=== PATIENT | female | born 1940 | race Caucasian/White ===

== ENCOUNTER 2021-12-18 11:22 | Outpatient (CLI) | payer MEDICARE, OTHER | END 2021-12-18 23:59 | disposition critical access hospital (66) | LOC: EMS 11:22 | DX: R11.2 Nausea with vomiting, unspecified (principal); R19.7 Diarrhea, unspecified; R53.1 Weakness | CPT/HCPCS: A0425; A0427 ==

== ENCOUNTER 2021-12-18 11:47 | Inpatient (IN) | payer MEDICARE, OTHER ==
--- NOTE | 2021-12-18 12:33 | ED Physician Documentation ---
History of Present Illness - Stated complaint Stated Complaint: N/V - Chief complaint Chief Complaint: Abd Pain - History obtained from History obtained from: Patient - History of Present Illness Timing: Today Pain level max: 4 Pain level now: 3 - Additonal information Additional information: 81 year old female who presents to the emergency department complaining of intermittent nausea, vomiting and diarrhea over the past 8 days. She states that the nausea has been fairly consistent, but the vomiting has come and gone. The diarrhea comes and goes as well. No headaches. Occasional epigastric abdominal pain. No blood in the stool. Has tried Reglan which seemed to help and then was on Zofran. She states she has not had any fevers but was told she had a fever today. No urinary symptoms. Worse with eating and drinking, nothing makes it better. She states she spoke with her doctor on the Internet today and they referred her here for evaluation. Review of Systems Ten Systems: 10 systems reviewed and negative Constitutional: denies: Fever, Chills Cardiac: denies: Chest pain / pressure Respiratory: denies: Cough GI: reports: Nausea, Vomiting, Diarrhea Skin: denies: Rash Musculoskeletal: denies: Neck pain, Back pain Neurologic: denies: Headache PD PAST MEDICAL HISTORY - Past Medical History Past Medical History: Yes Cardiovascular: Hypertension, High cholesterol, Coronary artery disease Neuro: CVA - Present Medications Home Medications: Ambulatory Orders Medication Instructions Recorded Confirmed ALPRAZolam [Xanax] 1 - 3 tab PO DAILY PRN 06/08/14 06/08/14 Carvedilol 1 tab PO DAILY 06/08/14 06/08/14 Furosemide [Lasix] 1 tab PO DAILY 06/08/14 06/08/14 Gabapentin 3 cap PO DAILY 06/08/14 06/08/14 Hydrocodone/Acetaminophen [Vicodin 2 tab PO Q6HR PRN 06/08/14 06/08/14 5-300 mg Tablet] Lovastatin 1 tab PO DAILY 06/08/14 06/08/14 Omeprazole [Prilosec] 2 cap PO DAILY 06/08/14 06/08/14 Potassium Chloride [Klor-Con] 1 packet PO DAILY 06/08/14 06/08/14 Warfarin [Coumadin] 1 tab PO DAILY 06/08/14 06/08/14 predniSONE [Prednisone] 1 tab PO DAILY 06/08/14 06/08/14 raNITIdine [Zantac] 1 tab PO DAILY 06/08/14 06/08/14 traMADol [Ultram] 1 - 2 tab PO TID PRN 06/08/14 06/08/14 Metoclopramide [Reglan] 10 mg PO Q6H PRN #20 tablet 12/05/21 - Allergies Allergies/Adverse Reactions: Allergies Allergy/AdvReac Type Severity Reaction Status Date / Time BETY Inhibitors Allergy Respiratory Verified 12/18/21 13:12 levofloxacin [From Levaquin] Allergy Rash Verified 12/18/21 13:12 Sulfa (Sulfonamide Allergy Hives Verified 12/18/21 13:12 Antibiotics) - Living Situation Living Situation: reports: With family Living Arrangement: reports: At home - Social History Does the pt smoke?: No Does the pt drink ETOH?: No Does the pt have substance abuse?: No - Family History Family history: reports: Non contributory PD ED PE NORMAL - Vitals Vital signs reviewed: Yes - General General: Alert and oriented X 3, No acute distress, Well developed/nourished - HEENT HEENT: PERRL, Moist mucous membranes - Neck Neck: Supple, no meningeal sign - Cardiac Cardiac: RRR - Respiratory Respiratory: No respiratory distress, Clear bilaterally - Abdomen Abdomen: Soft, Non tender, Non distended - Back Back: Other (mild B CVAT) - Derm Derm: Warm and dry - Extremities Extremities: No edema, No calf tenderness / cord - Neuro Neuro: Alert and oriented X 3 - Psych Psych: Normal mood, Normal affect Results - Vitals Vitals: Vital Signs - 24 hr 12/18/21 12/18/21 12/18/21 11:53 14:00 15:40 Temperature 37.9 C Heart Rate 73 79 84 Respiratory 18 19 26 H Rate Blood Pressure 112/100 H 153/103 H 162/79 H O2 Saturation 96 98 95 Oxygen O2 Source Room air - Labs Labs: Laboratory Tests 12/18/21 12/18/21 12/18/21 12:26 12:32 12:32 WBC 16.9 H RBC 4.28 Hgb 12.6 Hct 38.6 MCV 90.2 MCH 29.4 MCHC 32.6 RDW 14.7 Plt Count 269 MPV 11.4 H Neut # (Auto) Not Reportable Lymph # (Auto) Not Reportable Door # (Auto) Not Reportable Eos # (Auto) Not Reportable Baso # (Auto) Not Reportable Absolute Nucleated RBC Not Reportable Total Counted 100 Band Neuts % (Manual) 8 Abnorm Lymph % (Manual) 0 Nucleated RBC % Not Reportable Neutrophils # (Manual) 13.4 H Lymphocytes # (Manual) 1.5 Monocytes # (Manual) 2.0 H Eosinophils # (Manual) 0.0 Basophils # (Manual) 0.0 Differential Comment MANUAL DIFFERENTIAL RBC Morph Micro Appear 1+ HYPOCHROMASIA Sodium 136 Potassium 2.4 L* Chloride 103 Carbon Dioxide 22 Anion Gap 11.0 BUN 8 Creatinine 1.2 H Estimated GFR (MDRD) 43 L Glucose 127 H Estimat Average Glucose Hemoglobin A1c % Calcium 8.3 L Phosphorus 2.6 Magnesium 0.8 L* Total Bilirubin 0.7 AST 18 ALT 11 Alkaline Phosphatase 64 Total Protein 6.1 L Albumin 2.8 L Globulin 3.3 Albumin/Globulin Ratio 0.8 L Lipase 29 Urine Color Urine Clarity Urine pH Ur Specific [place] Urine Protein Urine Glucose (UA) Urine Ketones Urine Occult Blood Urine Nitrite Urine Bilirubin Urine Urobilinogen Ur Leukocyte Esterase Urine RBC Urine WBC Ur Squamous Epith Cells Urine Bacteria Ur Microscopic Review Urine Culture Comments Nasal Adenovirus (PCR) Nasal B. parapertussis DNA (PCR) Nasal Coronavir 229E PCR Nasal Coronavir HKU1 PCR Nasal Coronavir NL63 PCR Nasal Coronavir OC43 PCR Nasal Enterovir/Rhinovir PCR Nasal Influenza B PCR Nasal Influenza A PCR Nasal Parainfluen 1 PCR Nasal Parainfluen 2 PCR Nasal Parainfluen 3 PCR Nasal Parainfluen 4 PCR Nasal RSV (PCR) Nasal B.pertussis DNA PCR Nasal C.pneumoniae (PCR) Douglas Human Metapneumo PCR Nasal M.pneumoniae (PCR) Nasal SARS-CoV-2 (PCR) 12/18/21 12/18/21 12/18/21 12:32 13:24 16:44 WBC RBC Hgb Hct MCV MCH MCHC RDW Plt Count MPV Neut # (Auto) Lymph # (Auto) Door # (Auto) Eos # (Auto) Baso # (Auto) Absolute Nucleated RBC Total Counted Band Neuts % (Manual) Abnorm Lymph % (Manual) Nucleated RBC % Neutrophils # (Manual) Lymphocytes # (Manual) Monocytes # (Manual) Eosinophils # (Manual) Basophils # (Manual) Differential Comment RBC Morph Micro Appear Sodium Potassium Chloride Carbon Dioxide Anion Gap BUN Creatinine Estimated GFR (MDRD) Glucose Estimat Average Glucose 134 H Hemoglobin A1c % 6.3 H Calcium Phosphorus Magnesium Total Bilirubin AST ALT Alkaline Phosphatase Total Protein Albumin Globulin Albumin/Globulin Ratio Lipase Urine Color YELLOW Urine Clarity SL. CLOUDY Urine pH 6.0 Ur Specific [place] 1.025 Urine Protein TRACE Urine Glucose (UA) NEGATIVE Urine Ketones NEGATIVE Urine Occult Blood MODERATE H Urine Nitrite POSITIVE H Urine Bilirubin NEGATIVE Urine Urobilinogen 0.2 (NORMAL) Ur Leukocyte Esterase NEGATIVE Urine RBC 11-25 H Urine WBC 6-10 H Ur Squamous Epith Cells FEW Squamous Urine Bacteria Moderate H Ur Microscopic Review INDICATED Urine Culture Comments INDICATED Nasal Adenovirus (PCR) NOT DETECTED Nasal B. parapertussis DNA (PCR) NOT DETECTED Nasal Coronavir 229E PCR NOT DETECTED Nasal Coronavir HKU1 PCR NOT DETECTED Nasal Coronavir NL63 PCR NOT DETECTED Nasal Coronavir OC43 PCR NOT DETECTED Nasal Enterovir/Rhinovir PCR NOT DETECTED Nasal Influenza B PCR NOT DETECTED Nasal Influenza A PCR NOT DETECTED Nasal Parainfluen 1 PCR NOT DETECTED Nasal Parainfluen 2 PCR NOT DETECTED Nasal Parainfluen 3 PCR NOT DETECTED Nasal Parainfluen 4 PCR NOT DETECTED Nasal RSV (PCR) NOT DETECTED Nasal B.pertussis DNA PCR NOT DETECTED Nasal C.pneumoniae (PCR) NOT DETECTED Douglas Human Metapneumo PCR NOT DETECTED Nasal M.pneumoniae (PCR) NOT DETECTED Nasal SARS-CoV-2 (PCR) NOT DETECTED - Rads (name of study) head CT Radiology: Final report received, EMP read contemporaneously, See rad report (No acute intracranial disease process. ) CT abd/pelvis Radiology: Final report received, EMP read contemporaneously, See rad report PD MEDICAL DECISION MAKING - ED course Complexity details: reviewed results, re-evaluated patient, considered differential, d/w patient, d/w senior solutions workflow consultant ED course: 81-year-old female with what appears to be pyelonephritis. Patient has had continued vomiting. 2 doses of Zofran with EMS prior to arrival. Phenergan here and is still having episodes of emesis. Given Rocephin. Given IV fluids. Appears dehydrated. Has hypokalemia and hypomagnesemia. Both were replaced IV. Unable to tolerate oral potassium. Patient will be admitted for further care. Discussed the case with Dr. Toth, hospitalist who accepts This document was made in part using voice recognition software. While efforts are made to proofread this document, sound alike and grammatical errors may occur. IMPRESSION: 1. Small focal areas of heterogeneous enhancement in the superior poles of the kidneys bilaterally.Finding is nonspecific but is concerning for pyelonephritis. Recommend correlation with urinalysis data. 2. No dilated loops of bowel. 3. No free fluid or air. 4. Small hiatal hernia. 5. Atherosclerosis including the visualized coronary vasculature. 6. Mild hepatic steatosis. Departure - Departure Disposition: 66 [facility] DC/Xfer Clinical Impression: Pyelonephritis, Hypokalemia, Hypomagnesemia, Dehydration Condition: Stable Discharge Date/Time: 12/18/21 18:04
[2021-12-18] MEDS ORDERED: SODIUM CHLORIDE 0.9% 500 ML IV STA (12:36)
[2021-12-18 12:41] LABS: BASOPHILS % (AUTO) 0.4 %; EOSINOPHILS % (AUTO) 0.1 %; HCT - HEMATOCRIT 38.6 % (37.0-47.0); HGB - HEMOGLOBIN 12.6 g/dL (12.0-16.0); LYMPHOCYTES % (AUTO) 6.6 %; MEAN CORPUSCULAR HEMOGLOBIN 29.4 pg (27.0-31.0); MEAN CORPUSCULAR HGB CONC 32.6 g/dL (32.0-36.0); MEAN CORPUSCULAR VOLUME 90.2 fL (81.0-99.0); MEAN PLATELET VOLUME 11.4 fL (7.9-10.8); MONOCYTES % (AUTO) 11.6 %; NEUTROPHILS % (AUTO) 80.8 %; PLT - PLATELET COUNT 269 10^3/uL (130-450); RED BLOOD COUNT 4.28 10^6/uL (4.20-5.40); RED CELL DISTRIBUTION WIDTH 14.7 % (12.0-15.0); WHITE BLOOD COUNT 16.9 x10^3/uL (4.8-10.8)
[2021-12-18 12:43] LABS: ABNORMAL LYMPHS % (MANUAL) 0 %
[2021-12-18] MEDS ORDERED: IOVERSOL 320 100 ML VIAL IVP ONE ×2 (12:51→15:33)
[2021-12-18 12:55] LABS: ALBUMIN 2.8 g/dL (3.2-5.5); ALBUMIN/GLOBULIN RATIO 0.8 (1.0-2.2); BILIRUBIN,TOTAL 0.7 mg/dL (0.2-1.0); CALCIUM 8.3 mg/dL (8.5-10.3); CREATININE 1.2 mg/dL (0.4-1.0); TOTAL PROTEIN 6.1 g/dL (6.7-8.2)
[2021-12-18 12:56] LABS: POTASSIUM 2.4 mmol/L (3.5-5.0)
[2021-12-18] MEDS: SODIUM CHLORIDE 0.9% 1,000 ML IV STA ×2 (13:02→18:57)
[2021-12-18 13:03] LABS: BAND NEUTROPHILS % (MANUAL) 8 %; LYMPHOCYTES # (MANUAL) 1.5 10^3/uL (1.5-3.5); LYMPHOCYTES % (MANUAL) 9 %; NEUTROPHILS # (MANUAL) 13.4 10^3/uL (1.5-6.6)
[2021-12-18 13:05] LABS: DIFFERENTIAL COMMENT MANUAL DIFFERENTIAL; RBC MORPHOLOGY (MULTIPLE) 1+ HYPOCHROMASIA (NORMAL)
[2021-12-18] MEDS ORDERED: POTASSIUM CHLORIDE 20 MEQ TABLET PO STA (13:16)
[2021-12-18] MEDS ORDERED: PROMETHAZINE INJ 12.5 MG in SODIUM CHLORIDE 0.9% 50 ML IV STA (13:35)
[2021-12-18 13:39] LABS: PHOSPHORUS 2.6 mg/dL (2.5-4.6)
[2021-12-18 13:41] LABS: MAGNESIUM 0.8 mg/dL (1.7-2.8)
[2021-12-18 13:44] LABS: BILIRUBIN,URINE NEGATIVE (NEGATIVE); GLUCOSE, URINE (UA) NEGATIVE (NEGATIVE); KETONES,URINE (UA) NEGATIVE (NEGATIVE); LEUKOCYTE ESTERASE, URINE NEGATIVE (NEGATIVE); NITRITE,URINE POSITIVE (NEGATIVE); OCCULT BLOOD,URINE MODERATE (NEGATIVE); PROTEIN,URINE TRACE mg/dL (NEGATIVE); UROBILINOGEN,URINE 0.2 (NORMAL) E.U./dL (NORMAL)
[2021-12-18 14:01] LABS: BACTERIA,URINE Moderate /HPF (None Seen); CLARITY,URINE SL. CLOUDY (CLEAR); SQUAMOUS EPITHELIAL CELL,UR FEW Squamous (<= Few)
[2021-12-18] MEDS ORDERED: MAGNESIUM SULFATE 2 GRAM 2 GM/50 ML BAG IV ONE (14:12)
--- NOTE | 2021-12-18 15:53 | CT Report ---
PROCEDURE: HEAD WO INDICATIONS: persistent nausea/vomiting after stroke TECHNIQUE: Noncontrast 4.5 mm thick angled axial sections acquired from the foramen magnum to the vertex. For r adiation dose reduction, the following was used: automated exposure control, adjustment of mA and/or kV according to patient size. COMPARISON: None FINDINGS: Image quality: Excellent. CSF spaces: Basal cisterns are patent. No extra-axial fluid collections. The ventricles are symmet mirian in size and shape. Brain: Small chronic right frontal infarct. No intracranial bleeds or masses. There is cerebral vol ume loss for age, with resultant ventricular and sulcal prominence. There are periventricular and de ep white matter chronic small vessel ischemic changes. There is intracranial internal carotid artery and vertebral artery atherosclerosis. Skull and face: Calvarium and visualized facial bones appear intact, without suspicious lesions. Sinuses: Visualized sinuses and mastoids are clear. IMPRESSION: No acute intracranial disease process. Reviewed by: Amarilis Hall MD, PhD on 12/18/2021 3:52 PM PST Approved by: Amarilis Hall MD, PhD on 12/18/2021 3:52 PM PST Station ID: [id number]
[2021-12-18] MEDS ORDERED: POTASSIUM CHLOR 10 MEQ/100 ML 10 MEQ/100 ML BAG IV STA (15:59)
[2021-12-18] MEDS ORDERED: cefTRIAXone 1 GM VIAL IVP STA (16:05)
--- NOTE | 2021-12-18 16:11 | CT Report ---
PROCEDURE: Abdomen/Pelvis W INDICATIONS: diffuse abd pain, vomiting CONTRAST: IV CONTRAST: Optiray 320 ml: 100 PO CONTRAST: *NO PO CONTRAST TECHNIQUE: After the administration of contrast, 5 mm thick sections acquired from the diaphragms to the sym physis. 5 mm thick coronal and sagittal reformats were acquired. For radiation dose reduction, the following was used: automated exposure control, adjustment of mA and/or kV according to patient size . COMPARISON: None. FINDINGS: Image quality: Excellent. ABDOMEN: Lung bases: Scattered interstitial thickening noted in the periphery of the lung bases bilaterally. B ibasilar bronchiectasis. Heart size is normal. Atherosclerotic calcifications noted in the visualized coronary vasculature. Solid organs: Liver and spleen are normal in size and enhancement. Mild, diffuse fatty infiltration of the liver. Gallbladder is partially contracted, but within normal limits. Biliary system is non d ilated. Pancreas enhances normally. No adrenal nodules. No renal stone or hydronephrosis. Small, levy btle areas of heterogeneous enhancement noted in the superior poles of the kidneys bilaterally, right greater than left. Finding is nonspecific but may be related to pyelonephritis. Peritoneum and bowel : Small hiatal hernia. Bowel loops demonstrate normal wall thickness and caliber. No free fluid or air. Appendix is not visualized and may be absent. No free fluid or inflammatory changes are noted ad jacent to the cecum. Nodes and vessels: No retroperitoneal or mesenteric adenopathy by size criteria. Aorta and inferior vena cava are normal in size. Scattered atherosclerotic calcifications are noted in the abdominal an d pelvic vasculature. Miscellaneous: No ventral hernias. PELVIS: Genitourinary: Bladder wall thickness is normal. Adnexa are absent. Miscellaneous: No inguinal hernias or adenopathy. Bones: No suspicious bony lesions. No vertebral body compression fractures. Spine degenerative disc disease and facet arthropathy are noted. IMPRESSION: 1. Small focal areas of heterogeneous enhancement in the superior poles of the kidneys bilaterally. F inding is nonspecific but is concerning for pyelonephritis. Recommend correlation with urinalysis johanna a. 2. No dilated loops of bowel. 3. No free fluid or air. 4. Small hiatal hernia. 5. Atherosclerosis including the visualized coronary vasculature. 6. Mild hepatic steatosis. Reviewed by: Amarilis Hall MD, PhD on 12/18/2021 4:10 PM PST Approved by: Amarilis Hall MD, PhD on 12/18/2021 4:10 PM [facility] Station ID: [id number]
[2021-12-18] MEDS ORDERED: ONDANSETRON 4 MG/2 ML VIAL IVP PRN (17:00)
[2021-12-18] MEDS ORDERED: D5.45NS W/20 MEQ KCL 1,000 ML IV SCH ×3 (17:00→18:22)
--- NOTE | 2021-12-18 17:13 | HISTORY & PHYSICAL EXAMINATION ---
Chief Complaint - Chief Complaint Chief Complaint: N/V/D History of Present Illness - Admitted From Admitted From:: Medical floor - History Obtained From Records Reviewed: [facility], ER notes History obtained from: pt Exam Limitations: no - History of Present Illness HPI Comment/Other: This is a 81-year old female with A past medical history significant for hypertension, hyperlipidemia, stroke with residual left-sided weakness who presents to the emergency department complaining of intermittent nausea, vomiting and diarrhea. pt report she had intermittent nausea, vomiting and diarrhea over the past 8 days. pt report she visited her PCP and she was prescribed Zofran. she state her nausea and vomiting was improved after she took Zofran but early today morning, she started again with nausea and vomiting. She states that the nausea has been consistent, but her vomiting and diarrhea has been intermittent. She report she spoke with her PCP again on the Internet today and they referred her to ER for evaluation. Patient denies fever, chill, chest pain, shortness of breath. In ER pt had temperature 37.9, HR 73, RR 18, BP112/110, 96% O2 sat on room air. Routine laboratory test significantly show potassium 2.4, magnesium 0.8, creatinine 1.2, WBC 17, positive UTI. CT of abdomen/pelvis show Small focal area of heterogenic enhancement at bilaterally kidney, finding is nonspecific but raise concern of pyelonephritis. Discussed care goal with patient, patient hope to have DNR History - Past Medical History Cardiovascular: reports: Hypertension, High cholesterol, Coronary artery disease Neuro: reports: CVA Endocrine/Autoimmune: reports: Type 2 diabetes GI: reports: GERD Musculoskeletal: reports: Osteoarthritis MRSA Hx?: No - Past Surgical History /RISK PROFESSIONAL: reports: Hysterectomy HEENT: reports: Tonsil/Adenoidectomy - Family & Social History Family History: Mother: , Father: Family History Comment/Other: Patient report her father from liver carcinoma, she does not know the age. Her mother from multiple myeloma with stroke at age 85. Living arrangement: At home Living Situation: With family Social History Notes: Patient report she quit alcohol about 1 month ago, she denied history of cigarette smoking and drug ingestion - POLST Patient has POLST: No Meds/Allgy - Home Medications Home Medications: Ambulatory Orders Medication Instructions Recorded Confirmed ALPRAZolam [Xanax] 1 - 3 tab PO DAILY PRN 06/08/14 06/08/14 Carvedilol 1 tab PO DAILY 06/08/14 06/08/14 Furosemide [Lasix] 1 tab PO DAILY 06/08/14 06/08/14 Gabapentin 3 cap PO DAILY 06/08/14 06/08/14 Hydrocodone/Acetaminophen [Vicodin 2 tab PO Q6HR PRN 06/08/14 06/08/14 5-300 mg Tablet] Lovastatin 1 tab PO DAILY 06/08/14 06/08/14 Omeprazole [Prilosec] 2 cap PO DAILY 06/08/14 06/08/14 Potassium Chloride [Klor-Con] 1 packet PO DAILY 06/08/14 06/08/14 Warfarin [Coumadin] 1 tab PO DAILY 06/08/14 06/08/14 predniSONE [Prednisone] 1 tab PO DAILY 06/08/14 06/08/14 raNITIdine [Zantac] 1 tab PO DAILY 06/08/14 06/08/14 traMADol [Ultram] 1 - 2 tab PO TID PRN 06/08/14 06/08/14 Metoclopramide [Reglan] 10 mg PO Q6H PRN #20 tablet 12/05/21 - Allergies Allergies/Adverse Reactions: Allergies Allergy/AdvReac Type Severity Reaction Status Date / Time BETY Inhibitors Allergy Respiratory Verified 12/18/21 13:12 levofloxacin [From Levaquin] Allergy Rash Verified 12/18/21 13:12 Sulfa (Sulfonamide Allergy Hives Verified 12/18/21 13:12 Antibiotics) Review of Systems - Constitutional Constitutional: denies: Fever, Chills - Eyes Eyes: denies: Pain - Cardiovascular Cariovascular: denies: Palpitations, Chest pain, Syncope, Exertional dyspnea, Decr. exercise tolerance - Respiratory Respiratory: denies: Cough, Sputum production, SOB at rest, SOB with exertion - Gastrointestinal Gastrointestinal: reports: Abdominal pain, Diarrhea, Nausea, Vomiting - Genitourinary Genitourinary: denies: Dysuria - Neurological Neurological: reports: Focal weakness (left side weakness as her hx stroke). denies: Headache, Numbness, Seizures, Incoordination, Slurred speech Exam - Vital Signs Vital Signs: Vital Signs x48h Temp Pulse Resp BP Pulse Ox 12/18/21 15:40 84 26 H 162/79 H 95 12/18/21 14:00 79 19 153/103 H 98 12/18/21 11:53 37.9 C 73 18 112/100 H 96 - Physical Exam General Appearance: positive: Alert, Mild distress. negative: Lethargic Eyes Bilateral: positive: Normal inspection, No lid inflammation ENT: positive: ENT inspection nml. negative: Purulent nasal drainage Neck: positive: Nml inspection, Trachea midline. negative: Tracheal deviation Respiratory: positive: Chest non-tender, No respiratory distress. negative: Wheezes Cardiovascular: positive: Regular rate & rhythm. negative: Tachycardia, Bradycardia, Systolic murmur Peripheral Pulses: positive: 2+ Abdomen: positive: Non-tender, No distention, Abnml bowel sounds (hyperactive bowel sound). negative: Tenderness Back: positive: Nml inspection. negative: CVA tenderness (R), CVA tenderness (L) Skin: positive: Color nml, Warm, Dry. negative: Cyanosis Extremities: positive: Non-tender, Nml appearance Neurologic/Psychiatric: positive: Oriented x3, Sensation nml, Weakness. negative: Sensory loss, Facial droop, Slurred/abnml speech, Depressed mood/affect Sepsis Event Note (H) - Evaluation Current Stage of Sepsis: Sepsis Possible source of Sepsis: positive: Genitourinary - Sepsis Criteria Sepsis Criteria: Recorded Respiratory Rate greater than 20, WBC count greater than 12,000 or less than 4000 Conclusion/Plan - Problem List (1) Sepsis Conclusion/Plan: Patient had elevated WBC, low degree fever, urinalysis showed urine tract infection, and pyelonephritis. ER already started with Rocephin, we will c ontinue Rocephin, intravenous IV fluids, Blood culture is pending, urine analysis sensitivity study is pending as well. (2) Pyelonephritis Conclusion/Plan: CT of abdomen and pelvis show bilaterally pyelonephritis. Clinically patient present nausea, vomiting, diarrhea. Patient also had low degree fever. We will continue intravenous Rocephin, follow-up blood culture and urine sensitivity study, Continue gentle intravenous IV fluids. (3) Hypokalemia Conclusion/Plan: Potassium 2.4, we will placement with potassium, it is likely caused by patient's 8 days nausea and vomiting. Continue laboratory mechanical technician. order EKG and tele monitor (4) Hypomagnesemia Conclusion/Plan: Patient magnesium 0.8. ER Already had 2g magnesium for pt, we will followup with laboratory mechanical technician on tonight (5) Diarrhea Conclusion/Plan: Patient also reported diarrhea, we will check C. difficile, Continue intravenous IV fluids, Continue laboratory mechanical technician (6) Hx TIA/stroke w/o resid Conclusion/Plan: Patient has a history of stroke with left-sided residual weakness. We will resume patient home medications after confirmed by pharmacy. - Lab Results Fish Bones: 12/18/21 12:32 12/18/21 12:32 Core Measures - Anticipated LOS I expect patient to be DC'd or transferred within 96 hours.: Yes - DVT/VTE - Prophylaxis VTE/DVT Device ordered at admit?: Yes VTE/DVT Prophylaxis med ordered at admit?: Yes
[2021-12-18] MEDS ORDERED: hydrALAZINE INJ 20 MG/ML VIAL IVP PRN (17:25)
[2021-12-18 17:43] LABS: ESTIMATED AVERAGE GLUCOSE 134 mg/dL (70-100); HEMOGLOBIN A1c% 6.3 % (4.27-6.07)
[2021-12-18 17:51] LABS: B. PARAPERTUSSIS- RESP PCR PAN NOT DETECTED; B. PERTUSSIS- RESP PCR PANEL NOT DETECTED; C. PNEUMONIAE- RESP PCR PANEL NOT DETECTED; CORONAVIRUS 229E-RESP PCR NOT DETECTED; CORONAVIRUS HKU1-RESP PCR NOT DETECTED; CORONAVIRUS NL63-RESP PCR NOT DETECTED; CORONAVIRUS OC43-RESP PCR NOT DETECTED; HUMAN METAPNEUMOVIRUS NOT DETECTED; INFLUENZA A- RESP PCR PANEL NOT DETECTED; INFLUENZA B - RESP PCR PANEL NOT DETECTED; M. PNEUMONIAE- RESP PCR PANEL NOT DETECTED; PARAINFLUENZA VIRUS 1 NOT DETECTED; PARAINFLUENZA VIRUS 2 NOT DETECTED; PARAINFLUENZA VIRUS 3 NOT DETECTED; PARAINFLUENZA VIRUS 4 NOT DETECTED; RHINOVIRUS/ENTEROVIRUS NOT DETECTED; RSV- RESP PCR PANEL NOT DETECTED; SARS-CoV-2 -RESP PCR PANEL NOT DETECTED
[2021-12-18] MEDS ORDERED: PROCHLORPERAZINE 10 MG/2 ML VIAL IVP PRN (18:14)
[2021-12-18] MEDS: SODIUM CHLORIDE FLUSH 0.9% 10 ML SYRINGE IVP PRN ×2 (18:35→21:56)
[2021-12-18] MEDS: POTASSIUM CHLOR 10 MEQ/100 ML 10 MEQ/100 ML BAG IV SCH ×5 (19:03→23:39)
[2021-12-18] MEDS: SODIUM CHLORIDE FLUSH 0.9% 10 ML SYRINGE IVP SCH ×2 (19:32→23:41)
[2021-12-18] MEDS: cefTRIAXone 2 GM in SODIUM CHLORIDE 0.9% MINIBAG 100 ML IV SCH (19:33)
[2021-12-18] MEDS: ACETAMINOPHEN 325 MG TABLET PO PRN (19:44)
[2021-12-18 20:27] LABS: CREATININE 1.1 mg/dL (0.4-1.0)
[2021-12-18] MEDS ORDERED: MIN OIL/DIMETHICON/COCONUT OIL 92 GM TUBE TOP PRN (20:57)
[2021-12-18] MEDS: tiZANidine 4 MG TABLET PO PRN (21:47)
[2021-12-18] MEDS: HEPARIN 5,000 UNIT/ML VIAL SUBQ SCH (21:50)
[2021-12-19] MEDS: POTASSIUM CHLOR 10 MEQ/100 ML 10 MEQ/100 ML BAG IV SCH ×3 (00:47→02:56)
[2021-12-19] MEDS: SODIUM CHLORIDE 0.9% 1,000 ML IV SCH ×2 (00:58→01:45)
[2021-12-19] MEDS: ONDANSETRON 4 MG/2 ML VIAL IVP PRN ×3 (06:17→16:46)
[2021-12-19 07:06] LABS: CALCIUM 7.9 mg/dL (8.5-10.3); CREATININE 1.1 mg/dL (0.4-1.0); MAGNESIUM 1.2 mg/dL (1.7-2.8); POTASSIUM 3.8 mmol/L (3.5-5.0)
[2021-12-19 07:15] LABS: BASOPHILS # (AUTO) 0.1 10^3/uL (0.0-0.1); BASOPHILS % (AUTO) 0.5 %; EOSINOPHILS # (AUTO) 0.2 10^3/uL (0.0-0.7); EOSINOPHILS % (AUTO) 1.4 %; HCT - HEMATOCRIT 34.8 % (37.0-47.0); HGB - HEMOGLOBIN 11.5 g/dL (12.0-16.0); LYMPHOCYTES # (AUTO) 1.2 10^3/uL (1.5-3.5); LYMPHOCYTES % (AUTO) 9.5 %; MEAN CORPUSCULAR HEMOGLOBIN 29.9 pg (27.0-31.0); MEAN CORPUSCULAR VOLUME 90.6 fL (81.0-99.0); MEAN PLATELET VOLUME 12.6 fL (7.9-10.8); MONOCYTES # (AUTO) 1.2 10^3/uL (0.0-1.0); MONOCYTES % (AUTO) 9.6 %; NEUTROPHILS # (AUTO) 9.6 10^3/uL (1.5-6.6); NEUTROPHILS % (AUTO) 78.3 %; PLT - PLATELET COUNT 218 10^3/uL (130-450); RED BLOOD COUNT 3.84 10^6/uL (4.20-5.40); RED CELL DISTRIBUTION WIDTH 14.9 % (12.0-15.0); WHITE BLOOD COUNT 12.3 x10^3/uL (4.8-10.8)
[2021-12-19] MEDS: HEPARIN 5,000 UNIT/ML VIAL SUBQ SCH ×2 (08:33→20:35)
[2021-12-19] MEDS: SACCHAROMYCES BOULARDII 250 MG CAPSULE PO SCH ×2 (08:34→16:46)
[2021-12-19] MEDS: cefTRIAXone 2 GM in SODIUM CHLORIDE 0.9% MINIBAG 100 ML IV SCH (08:34)
[2021-12-19] MEDS: SODIUM CHLORIDE FLUSH 0.9% 10 ML SYRINGE IVP SCH ×2 (08:36→16:49)
[2021-12-19] MEDS ORDERED: cefTRIAXone 2 GM in SODIUM CHLORIDE 0.9% MINIBAG 100 ML IV SCH (09:00)
[2021-12-19] MEDS ORDERED: ENOXAPARIN 40 MG/0.4 ML SYRINGE SUBQ SCH (09:00)
[2021-12-19] MEDS: ACETAMINOPHEN 325 MG TABLET PO PRN ×3 (09:44→18:32)
[2021-12-19] MEDS: MAGNESIUM OXIDE 400 MG TABLET PO SCH (10:34)
[2021-12-19] MEDS: SODIUM CHLORIDE FLUSH 0.9% 10 ML SYRINGE IVP PRN ×2 (10:34→14:05)
[2021-12-19] MEDS: PANTOPRAZOLE 40 MG VIAL IV SCH (10:45)
[2021-12-19] MEDS: CALCIUM CARBONATE CHEW 500 MG TABLET PO PRN ×2 (10:45→18:32)
--- NOTE | 2021-12-19 11:18 | PROVIDER PROGRESS NOTE ---
Assessment/Plan - Problem List (1) Sepsis Assessment/Plan: Patient had elevated WBC, low degree fever, urinalysis showed urinary tract infection, and pyelonephritis as the source. WBC has improved from 16 to 12 today. She does report flank pain today. We will continue IV Rocephin, amd IV fluids. Blood culture result is pending, urine cx sensitivity study is pending as well. (2) Pyelonephritis Conclusion/Plan: CT of abdomen and pelvis showed bilateral pyelonephritis. Today she has pain in flanks. Patient also had low degree fever. We will continue intravenous Rocephin, awaiting blood culture and urine sensitivity results. Continue gentle intravenous IV fluids. (3) N/V She has continued nausea but no more vomiting and the IV Zofran is wearing off before the every 4 hours treatment allows another dose. Will add IV Compazine as needed and this can then be staggered with the Zofran. Will de-escalate her diet to a clear liquid diet. (4) Diarrhea Conclusion/Plan: Patient also reported many days of diarrhea. Here she is having liquid diarrhea after taking in her liquid diet. A PCR for C. difficile is (-). Her abd CT did not show colitis. This is likely a (viral) gastroenteritis Will de-escalate her diet to a clear liquid diet for bowel rest. Continue intravenous IV fluids. Will start imodium prn Continue laboratory monitoring (5) Hypokalemia Conclusion/Plan: This was likely caused by patient's 8 days of nausea, vomiting and diarrhea. Will replace in her daily IV maintenance fluids and give potassium riders. She did not tolerate oral potassium replacement because of her nausea. Continue daily laboratory monitoring Continue telem monitoring (6) Hypomagnesemia Conclusion/Plan: This is likely from many days of magnesium loss in the diarrhea. We will replace with magnesium p.o. and/or IV. Follow serum magnesium level daily (7) Recent stroke Conclusion/Plan: Patient has a history of stroke in Oct 2021, with residual left-sided residual weakness. She was not admitted for this, she had refused. 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 She has not undergone an Echo here, to evaluate for a cardiac source of embolus. We will resume patient home medications (ASA, etc) after confirmed by pharmacy. Will order PT and OT evaluation. She has requested a Palliative Care consult, will order. (8) Abnormal EKG Her EKG done at admission yesterday shows sinus rhythm, and marked T wave flattening in all her phil-lateral leads, which is a new finding from her EKG from just a month ago, done 11/09/2021. She has not yet undergone an Echo here, to evaluate for a cardiac source of embolus for the recent stroke. Will resume her home antiplatelet and statin medications once they are reconciled. Will obtain a complete Echo (but today is Sat and no Echo service available until Tue). - Current Meds Current Meds: Current Medications Generic Name Dose Route Start Last Admin Trade Name Freq PRN Reason Stop Dose Admin Acetaminophen 650 mg 12/18/21 17:00 12/19/21 09:44 Acetaminophen 325 Mg Tablet PO 650 mg Q4HR PRN Administration Pain 1 to 4 Calcium Carbonate/Glycine 500 mg 12/19/21 10:32 12/19/21 10:45 Calcium Carbonate Chew 500 Mg Tablet PO 500 mg TID PRN Administration Heartburn Heparin Sodium (Porcine) 5,000 unit 12/18/21 21:00 12/19/21 08:33 Heparin 5,000 Unit/Ml Vial SUBQ 5,000 unit BID JENNYFER Administration Ceftriaxone Sodium 2 gm/ 100 mls @ 200 mls/hr 12/18/21 18:37 12/19/21 09:05 Sodium Chloride IV Infused DAILY JENNYFER Infusion Sodium Chloride 1,000 mls @ 83.333 mls/hr 12/18/21 19:00 12/19/21 09:05 Normal Saline 0.9% IV 12/19/21 18:59 83.333 mls/hr .Q12H JENNYFER Infusion Magnesium Oxide 400 mg 12/19/21 10:00 12/19/21 10:34 Magnesium Oxide 400 Mg Tablet PO 400 mg DAILYWM JENNYFER Administration Ondansetron HCl 4 mg 12/18/21 22:34 12/19/21 10:34 Ondansetron 4 Mg/2 Ml Vial IVP 4 mg Q4HR PRN Administration Nausea / Vomiting Pantoprazole Sodium 40 mg 12/19/21 10:34 12/19/21 10:45 Pantoprazole 40 Mg Vial IV 40 mg 0700 JENNYFER Administration Saccharomyces Boulardii 250 mg 12/19/21 08:00 12/19/21 08:34 Saccharomyces Boulardii 250 Mg Capsule PO 250 mg BIDWM JENNYFER Administration Sodium Chloride 10 ml 12/18/21 17:00 12/19/21 10:34 Sodium Chloride Flush 0.9% 10 Ml Syringe IVP 10 ml PRN PRN Administration NEEDED PER PROVIDER ORDERS Sodium Chloride 10 ml 12/18/21 17:00 12/19/21 08:36 Sodium Chloride Flush 0.9% 10 Ml Syringe IVP 10 ml 0100,0900,1700 JENNYFER Administration Tizanidine HCl 4 mg 12/18/21 21:36 12/18/21 21:47 Tizanidine 4 Mg Tablet PO 4 mg TID PRN Administration Spasms - Lab Result Fish Bone Diagrams: 12/19/21 06:48 12/19/21 06:48 - Additional Planning My Orders: My Active Orders 12/19/21 10:00 Magnesium Oxide [Mag Ox] 400 mg PO DAILYWM 12/19/21 10:31 Prochlorperazine Inj [Compazine Inj] 10 mg IVP Q6HR PRN 12/19/21 10:32 Calcium Carbonate [Tums] 500 mg PO TID PRN 12/19/21 10:34 Pantoprazole [Protonix] 40 mg IV 0700 12/19/21 Lunch Clear Liquid Diet [DIET] 12/19/21 14:00 Ns W/20 Meq KCl [Normal Saline 0.9% W/20 Meq KCl] 1,000 ml IV 83.333 mls/hr 12/20/21 05:00 PHOSPHORUS [CHEM] DAILYLAB Subjective - Subjective Patient Reports: Feeling Better (feeling stronger), Diarrhea (She reports liquidy diarrhea that occurs right after ingesting liquids. Still slt nauseated, no more vomiting.) Objective Vital Signs: Vital Signs - 24 hr 12/18/21 12/18/21 12/18/21 11:53 14:00 15:40 Temperature 37.9 C Heart Rate 73 79 84 Heart Rate [ Brachial] Heart Rate [ Monitoring electrodes] Respiratory 18 19 26 H Rate Blood Pressure 112/100 H 153/103 H 162/79 H Blood Pressure [Left Brachial artery] Blood Pressure [Right Brachial artery] O2 Saturation 96 98 95 12/18/21 12/18/21 12/18/21 17:00 17:46 18:18 Temperature Heart Rate 81 85 Heart Rate [ Brachial] Heart Rate [ 80 Monitoring electrodes] Respiratory 19 25 H 24 Rate Blood Pressure 167/63 H 158/92 H Blood Pressure [Left Brachial artery] Blood Pressure 150/97 H [Right Brachial artery] O2 Saturation 94 95 96 12/18/21 12/18/21 12/19/21 18:30 21:56 00:25 Temperature 37.8 C 37.0 C 36.8 C Heart Rate Heart Rate [ 67 Brachial] Heart Rate [ 73 Monitoring electrodes] Respiratory 24 22 Rate Blood Pressure Blood Pressure 104/81 H [Left Brachial artery] Blood Pressure 105/53 L [Right Brachial artery] O2 Saturation 95 95 12/19/21 12/19/21 03:55 08:16 Temperature 36.3 C L 37.3 C Heart Rate Heart Rate [ 71 Brachial] Heart Rate [ Monitoring electrodes] Respiratory 19 22 Rate Blood Pressure Blood Pressure [Left Brachial artery] Blood Pressure 132/64 H 148/72 H [Right Brachial artery] O2 Saturation 98 96 Oxygen O2 Source Room air I&O (Last 24 Hrs): Intake and Output Totals x24h 12/17/21 12/18/21 12/19/21 23:59 23:59 23:59 Intake Total 2437.5 2393.053 Balance 2437.5 2393.053 General: Alert, Oriented x3, Other (Thin, ashen skin) HEENT: Mucous membr. moist/pink, Other Neck: Supple, No JVD Neuro: Alert, Other (LUE 4/5, LLE 4/5 strength) Cardiovascular: Regular rate, No murmurs Respiratory: No respiratory distress, Breath sounds nml Abdomen: Normal bowel sounds, Soft, No tenderness, No masses Extremities: No clubbing, No edema, No tenderness/swelling, Other ((+) skin tenting) - Results Results: Laboratory Results WBC 12.3 x10^3/uL (4.8-10.8) H 12/19/21 06:48 RBC 3.84 10^6/uL (4.20-5.40) L 12/19/21 06:48 Hgb 11.5 g/dL (12.0-16.0) L 12/19/21 06:48 Hct 34.8 % (37.0-47.0) L 12/19/21 06:48 MCV 90.6 fL (81.0-99.0) 12/19/21 06:48 MCH 29.9 pg (27.0-31.0) 12/19/21 06:48 MCHC 33.0 g/dL (32.0-36.0) 12/19/21 06:48 RDW 14.9 % (12.0-15.0) 12/19/21 06:48 Plt Count 218 10^3/uL (130-450) 12/19/21 06:48 MPV 12.6 fL (7.9-10.8) H 12/19/21 06:48 Neut # (Auto) 9.6 10^3/uL (1.5-6.6) H 12/19/21 06:48 Lymph # (Auto) 1.2 10^3/uL (1.5-3.5) L 12/19/21 06:48 [place] # (Auto) 1.2 10^3/uL (0.0-1.0) H 12/19/21 06:48 Eos # (Auto) 0.2 10^3/uL (0.0-0.7) 12/19/21 06:48 Baso # (Auto) 0.1 10^3/uL (0.0-0.1) 12/19/21 06:48 Absolute Nucleated RBC 0.00 x10^3/uL 12/19/21 06:48 Total Counted 100 12/18/21 12:32 Band Neuts % (Manual) 8 % (0-10) 12/18/21 12:32 Abnorm Lymph % (Manual) 0 % 12/18/21 12:32 Nucleated RBC % 0.0 /100WBC 12/19/21 06:48 Neutrophils # (Manual) 13.4 10^3/uL (1.5-6.6) H 12/18/21 12:32 Lymphocytes # (Manual) 1.5 10^3/uL (1.5-3.5) 12/18/21 12:32 Monocytes # (Manual) 2.0 10^3/uL (0.0-1.0) H 12/18/21 12:32 Eosinophils # (Manual) 0.0 10^3/uL (0-0.7) 12/18/21 12:32 Basophils # (Manual) 0.0 10^3/uL (0-0.1) 12/18/21 12:32 Differential Comment MANUAL DIFFERENTIAL 12/18/21 12:32 RBC Morph Micro Appear 1+ HYPOCHROMASIA (NORMAL) 12/18/21 12:32 Sodium 136 mmol/L (135-145) 12/19/21 06:48 Potassium 3.8 mmol/L (3.5-5.0) 12/19/21 06:48 Chloride 109 mmol/L (101-111) 12/19/21 06:48 Carbon Dioxide 15 mmol/L (21-32) L 12/19/21 06:48 Anion Gap 12.0 (6-13) 12/19/21 06:48 BUN 10 mg/dL (6-20) 12/19/21 06:48 Creatinine 1.1 mg/dL (0.4-1.0) H 12/19/21 06:48 Estimated GFR (MDRD) 48 (>89) L 12/19/21 06:48 Glucose 89 mg/dL (70-100) 12/19/21 06:48 Estimat Average Glucose 134 mg/dL (70-100) H 12/18/21 12:32 Hemoglobin A1c % 6.3 % (4.27-6.07) H 12/18/21 12:32 Lactic Acid 1.5 mmol/L (0.5-2.2) 12/18/21 17:01 Calcium 7.9 mg/dL (8.5-10.3) L 12/19/21 06:48 Phosphorus 2.6 mg/dL (2.5-4.6) 12/18/21 12:26 Magnesium 1.2 mg/dL (1.7-2.8) L 12/19/21 06:48 Total Bilirubin 0.7 mg/dL (0.2-1.0) 12/18/21 12:32 AST 18 IU/L (10-42) 12/18/21 12:32 ALT 11 IU/L (10-60) 12/18/21 12:32 Alkaline Phosphatase 64 IU/L (42-121) 12/18/21 12:32 Total Protein 6.1 g/dL (6.7-8.2) L 12/18/21 12:32 Albumin 2.8 g/dL (3.2-5.5) L 12/18/21 12:32 Globulin 3.3 g/dL (2.1-4.2) 12/18/21 12:32 Albumin/Globulin Ratio 0.8 (1.0-2.2) L 12/18/21 12:32 Lipase 29 U/L (22-51) 12/18/21 12:32 Urine Color YELLOW 12/18/21 13:24 Urine Clarity SL. CLOUDY (CLEAR) 12/18/21 13:24 Urine pH 6.0 PH (5.0-7.5) 12/18/21 13:24 Ur Specific [place] 1.025 (1.002-1.030) 12/18/21 13:24 Urine Protein TRACE mg/dL (NEGATIVE) 12/18/21 13:24 Urine Glucose (UA) NEGATIVE mg/dL (NEGATIVE) 12/18/21 13:24 Urine Ketones NEGATIVE mg/dL (NEGATIVE) 12/18/21 13:24 Urine Occult Blood MODERATE (NEGATIVE) H 12/18/21 13:24 Urine Nitrite POSITIVE (NEGATIVE) H 12/18/21 13:24 Urine Bilirubin NEGATIVE (NEGATIVE) 12/18/21 13:24 Urine Urobilinogen 0.2 (NORMAL) E.U./dL (NORMAL) 12/18/21 13:24 Ur Leukocyte Esterase NEGATIVE (NEGATIVE) 12/18/21 13:24 Urine RBC 11-25 /HPF (0-5) H 12/18/21 13:24 Urine WBC 6-10 /HPF (0-5) H 12/18/21 13:24 Ur Squamous Epith Cells FEW Squamous (<= Few) 12/18/21 13:24 Urine Bacteria Moderate /HPF (None Seen) H 12/18/21 13:24 Ur Microscopic Review INDICATED 12/18/21 13:24 Urine Culture Comments INDICATED 12/18/21 13:24 Nasal Adenovirus (PCR) NOT DETECTED 12/18/21 16:44 Nasal B. parapertussis DNA (PCR) NOT DETECTED 12/18/21 16:44 Nasal Coronavir 229E PCR NOT DETECTED 12/18/21 16:44 Nasal Coronavir HKU1 PCR NOT DETECTED 12/18/21 16:44 Nasal Coronavir NL63 PCR NOT DETECTED 12/18/21 16:44 Nasal Coronavir OC43 PCR NOT DETECTED 12/18/21 16:44 Nasal Enterovir/Rhinovir PCR NOT DETECTED 12/18/21 16:44 Nasal Influenza B PCR NOT DETECTED 12/18/21 16:44 Nasal Influenza A PCR NOT DETECTED 12/18/21 16:44 Nasal Parainfluen 1 PCR NOT DETECTED 12/18/21 16:44 Nasal Parainfluen 2 PCR NOT DETECTED 12/18/21 16:44 Nasal Parainfluen 3 PCR NOT DETECTED 12/18/21 16:44 Nasal Parainfluen 4 PCR NOT DETECTED 12/18/21 16:44 Nasal RSV (PCR) NOT DETECTED 12/18/21 16:44 Nasal B.pertussis DNA PCR NOT DETECTED 12/18/21 16:44 Nasal C.pneumoniae (PCR) NOT DETECTED 12/18/21 16:44 [place] Human Metapneumo PCR NOT DETECTED 12/18/21 16:44 Nasal M.pneumoniae (PCR) NOT DETECTED 12/18/21 16:44 Nasal SARS-CoV-2 (PCR) NOT DETECTED 12/18/21 16:44 Sepsis Event Note (H) - Evaluation Current Stage of Sepsis: Sepsis Possible source of Sepsis: positive: Genitourinary - Sepsis Criteria Sepsis Criteria: Recorded Respiratory Rate greater than 20, WBC count greater than 12,000 or less than 4000
[2021-12-19] MEDS: ASPIRIN EC 81 MG TABLET PO SCH (12:35)
[2021-12-19] MEDS: NS W/20 MEQ KCL 1,000 ML IV SCH (14:05)
[2021-12-19] MEDS: PROCHLORPERAZINE 10 MG/2 ML VIAL IVP PRN ×2 (14:05→20:34)
[2021-12-19] MEDS ORDERED: LOPERAMIDE 2 MG CAPSULE PO PRN (19:46)
[2021-12-19] MEDS: APIXABAN 5 MG TABLET PO SCH (20:34)
[2021-12-19] MEDS: tiZANidine 4 MG TABLET PO PRN (20:34)
[2021-12-19] MEDS: ATORVASTATIN 10 MG TABLET PO SCH (20:34)
[2021-12-20] MEDS: SODIUM CHLORIDE FLUSH 0.9% 10 ML SYRINGE IVP SCH ×4 (00:26→23:35)
[2021-12-20] MEDS: NS W/20 MEQ KCL 1,000 ML IV SCH ×2 (02:12→16:04)
[2021-12-20] MEDS: ACETAMINOPHEN 325 MG TABLET PO PRN ×2 (03:22→08:38)
[2021-12-20 05:44] LABS: BASOPHILS % (AUTO) 0.4 %; EOSINOPHILS # (AUTO) 0.4 10^3/uL (0.0-0.7); EOSINOPHILS % (AUTO) 4.4 %; HCT - HEMATOCRIT 32.1 % (37.0-47.0); HGB - HEMOGLOBIN 10.7 g/dL (12.0-16.0); LYMPHOCYTES % (AUTO) 13.1 %; MEAN CORPUSCULAR HEMOGLOBIN 30.1 pg (27.0-31.0); MEAN CORPUSCULAR HGB CONC 33.3 g/dL (32.0-36.0); MEAN CORPUSCULAR VOLUME 90.2 fL (81.0-99.0); MONOCYTES % (AUTO) 12.5 %; NEUTROPHILS # (AUTO) 5.5 10^3/uL (1.5-6.6); NEUTROPHILS % (AUTO) 69.2 %; PLT - PLATELET COUNT 203 10^3/uL (130-450); RED BLOOD COUNT 3.56 10^6/uL (4.20-5.40); RED CELL DISTRIBUTION WIDTH 15.2 % (12.0-15.0); WHITE BLOOD COUNT 7.9 x10^3/uL (4.8-10.8)
[2021-12-20 05:57] LABS: CALCIUM 8.1 mg/dL (8.5-10.3); PHOSPHORUS 1.2 mg/dL (2.5-4.6); POTASSIUM 3.3 mmol/L (3.5-5.0)
[2021-12-20] MEDS: PANTOPRAZOLE 40 MG VIAL IV SCH (06:39)
[2021-12-20] MEDS ORDERED: MAGNESIUM SULFATE 1 GM in SODIUM CHLORIDE 0.9% 50 ML IV ONE (08:10)
[2021-12-20] MEDS: PROCHLORPERAZINE 10 MG/2 ML VIAL IVP PRN ×2 (08:29→16:21)
[2021-12-20] MEDS: cefTRIAXone 2 GM in SODIUM CHLORIDE 0.9% MINIBAG 100 ML IV SCH (08:34)
[2021-12-20] MEDS: SACCHAROMYCES BOULARDII 250 MG CAPSULE PO SCH ×2 (08:38→16:21)
[2021-12-20] MEDS: MAGNESIUM OXIDE 400 MG TABLET PO SCH (08:38)
[2021-12-20] MEDS: ASPIRIN EC 81 MG TABLET PO SCH (08:38)
[2021-12-20] MEDS ORDERED: MAGNESIUM SULFATE 2 GRAM 2 GM/50 ML BAG IV ONE (09:00)
[2021-12-20] MEDS: LOPERAMIDE 2 MG CAPSULE PO SCH ×4 (09:33→21:33)
[2021-12-20] MEDS: APIXABAN 5 MG TABLET PO SCH ×2 (09:57→21:32)
[2021-12-20] MEDS: SODIUM CHLORIDE FLUSH 0.9% 10 ML SYRINGE IVP PRN (13:39)
[2021-12-20] MEDS: ONDANSETRON 4 MG/2 ML VIAL IVP PRN (13:39)
[2021-12-20] MEDS: CALCIUM CARBONATE CHEW 500 MG TABLET PO PRN ×2 (15:21→23:21)
[2021-12-20] MEDS: POTASSIUM PHOSPHATE 15 MMOL in SODIUM CHLORIDE 0.9% 250 ML IV SCH ×2 (16:04→20:08)
[2021-12-20] MEDS: tiZANidine 4 MG TABLET PO PRN ×2 (17:25→23:21)
[2021-12-20] MEDS: ATORVASTATIN 10 MG TABLET PO SCH (21:32)
[2021-12-21] MEDS: NS W/20 MEQ KCL 1,000 ML IV SCH ×2 (03:51→19:02)
[2021-12-21 04:59] LABS: BASOPHILS % (AUTO) 0.7 %; EOSINOPHILS # (AUTO) 0.4 10^3/uL (0.0-0.7); EOSINOPHILS % (AUTO) 7.7 %; HCT - HEMATOCRIT 32.6 % (37.0-47.0); HGB - HEMOGLOBIN 11.1 g/dL (12.0-16.0); LYMPHOCYTES # (AUTO) 1.1 10^3/uL (1.5-3.5); LYMPHOCYTES % (AUTO) 20.3 %; MEAN CORPUSCULAR HEMOGLOBIN 30.7 pg (27.0-31.0); MEAN CORPUSCULAR VOLUME 90.1 fL (81.0-99.0); MEAN PLATELET VOLUME 11.6 fL (7.9-10.8); MONOCYTES # (AUTO) 0.7 10^3/uL (0.0-1.0); MONOCYTES % (AUTO) 12.7 %; NEUTROPHILS # (AUTO) 3.2 10^3/uL (1.5-6.6); NEUTROPHILS % (AUTO) 58.2 %; PLT - PLATELET COUNT 235 10^3/uL (130-450); RED BLOOD COUNT 3.62 10^6/uL (4.20-5.40); RED CELL DISTRIBUTION WIDTH 15.4 % (12.0-15.0); WHITE BLOOD COUNT 5.4 x10^3/uL (4.8-10.8)
[2021-12-21 05:07] LABS: CALCIUM 8.1 mg/dL (8.5-10.3); CREATININE 0.8 mg/dL (0.4-1.0); POTASSIUM 3.8 mmol/L (3.5-5.0)
[2021-12-21] MEDS: PANTOPRAZOLE 40 MG TABLET PO SCH (06:04)
[2021-12-21] MEDS: tiZANidine 4 MG TABLET PO PRN ×2 (06:19→20:21)
[2021-12-21] MEDS ORDERED: MAGNESIUM SULFATE 2 GRAM 2 GM/50 ML BAG IV ONE (08:06)
[2021-12-21] MEDS: APIXABAN 5 MG TABLET PO SCH ×2 (08:41→20:24)
[2021-12-21] MEDS: MAGNESIUM OXIDE 400 MG TABLET PO SCH (08:41)
[2021-12-21] MEDS: SACCHAROMYCES BOULARDII 250 MG CAPSULE PO SCH ×2 (08:41→17:16)
[2021-12-21] MEDS: LOPERAMIDE 2 MG CAPSULE PO SCH ×4 (08:42→20:29)
[2021-12-21] MEDS: PROCHLORPERAZINE 10 MG/2 ML VIAL IVP PRN ×2 (08:42→18:59)
[2021-12-21] MEDS: ASPIRIN EC 81 MG TABLET PO SCH (08:42)
[2021-12-21] MEDS: SODIUM CHLORIDE FLUSH 0.9% 10 ML SYRINGE IVP SCH ×2 (08:45→17:15)
[2021-12-21] MEDS: cefTRIAXone 2 GM in SODIUM CHLORIDE 0.9% MINIBAG 100 ML IV SCH (08:54)
--- NOTE | 2021-12-21 09:11 | PROVIDER PROGRESS NOTE ---
Assessment/Plan - Problem List (1) Pyelonephritis Assessment/Plan: CT of abdomen and pelvis showed bilateral pyelonephritis.She had pain in flanks. Patient also had low degree fever at presentation. We will continue intravenous Rocephin, awaiting blood culture and urine sensitivity results. Continue gentle intravenous IV fluids. (2) N/V She has continued nausea but no more vomiting and the IV Zofran is wearing off before the every 4 hours treatment allows another dose. we added IV Compazine prm to be staggered with the Zofran. He CT abd showed no signif GI problems Will needed to de-escalate her diet to a clear liquid diet. Even with that she gets nauseated trying clear liquids. Will continue iv fluids containing D5. (3) Diarrhea Conclusion/Plan: Patient also reported many days of liquid diarrhea after swallowing liquids. A PCR for C. difficile is neg. Her abd CT did not show colitis. This is likely a (viral) gastroenteritis Will needed to de-escalate her diet to a clear liquid diet for bowel rest. Continue intravenous IV fluids. Will change the imodium to scheduled qid Continue laboratory monitoring (4) Hypokalemia Conclusion/Plan: This was likely caused by patient'sprolonged vomiting and diarrhea. Will replace in her daily IV maintenance fluids and give potassium riders. She did not tolerate oral potassium replacement because of her nausea. Continue daily laboratory monitoring Continue telem monitoring (5) Hypomagnesemia Conclusion/Plan: This is likely from many days of magnesium loss in the diarrhea. We will replace with magnesium p.o. and/or IV. Follow serum magnesium level daily (6) Recent stroke Conclusion/Plan: Patient has a history of stroke in Oct 2021, with residual left-sided residual weakness. She was not admitted for this, she had refused. 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 She has not undergone an Echo here, to evaluate for a cardiac source of embolus. We will resume patient home medications (ASA, etc) after confirmed by pharmacy. Will order PT and OT evaluation. She has requested a Palliative Care consult, we ordered this for tomorrow (today is Sun) (7) Abnormal EKG Her EKG done at admission showed sinus rhythm, and marked T wave flattening in all her phil-lateral leads, which was a new finding from her EKG from just a month ago, done 11/09/2021. She has not yet undergone an Echo here, to evaluate for a cardiac source of embolus for the recent stroke. Will resume her home antiplatelet and statin medications once they are reconciled. Will obtain a complete Echo (but today is Sun and no Echo service available un til Mon). (8) Malnutrition She admits to por po intake for >1 week and her BMI is 25 Will request a Nutrition consult re Malnutrition and diet recommendations. (9) Sepsis Assessment/Plan: Resolved. Patient had elevated WBC, low degree fever, urinalysis showed urinary tract infection, and pyelonephritis as the source. WBC has improved - Current Meds Current Meds: Current Medications Generic Name Dose Route Start Last Admin Trade Name Freq PRN Reason Stop Dose Admin Acetaminophen 650 mg 12/18/21 17:00 12/20/21 08:38 Acetaminophen 325 Mg Tablet PO 650 mg Q4HR PRN Administration Pain 1 to 4 Apixaban 5 mg 12/19/21 21:00 12/21/21 08:41 Apixaban 5 Mg Tablet PO 5 mg BID JENNYFER Administration Aspirin 81 mg 12/19/21 12:00 12/21/21 08:42 Aspirin Ec 81 Mg Tablet PO 81 mg DAILY JENNYFER Administration Atorvastatin Calcium 20 mg 12/19/21 21:00 12/20/21 21:32 Atorvastatin 10 Mg Tablet PO 20 mg QPM JENNYFER Administration Calcium Carbonate/Glycine 500 mg 12/19/21 10:32 12/20/21 23:21 Calcium Carbonate Chew 500 Mg Tablet PO 500 mg TID PRN Administration Heartburn Ceftriaxone Sodium 2 gm/ 100 mls @ 200 mls/hr 12/18/21 18:37 12/21/21 08:54 Sodium Chloride IV 200 mls/hr DAILY JENNYFER Administration Potassium Chloride/Sodium Chloride 1,000 mls @ 83.333 mls/hr 12/19/21 14:00 12/21/21 08:55 Normal Saline 0.9% W/20 Meq Kcl IV 0 mls/hr .Q12H JENNYFER Infusion Loperamide HCl 2 mg 12/20/21 09:00 12/21/21 08:42 Loperamide 2 Mg Capsule PO 2 mg QID JENNYFER Administration Magnesium Oxide 400 mg 12/19/21 10:00 12/21/21 08:41 Magnesium Oxide 400 Mg Tablet PO 400 mg DAILYWM JENNYFER Administration Mineral Oil 1 applic 12/18/21 20:57 12/19/21 22:12 Min Oil/Dimethicon/Coconut Oil 92 Gm Tube TOP 1 applic PRN PRN Administration Skin Care Ondansetron HCl 4 mg 12/18/21 22:34 12/20/21 13:39 Ondansetron 4 Mg/2 Ml Vial IVP 4 mg Q4HR PRN Administration Nausea / Vomiting Pantoprazole Sodium 40 mg 12/21/21 07:00 12/21/21 06:04 Pantoprazole 40 Mg Tablet PO 40 mg QDAC JENNYFER Administration Prochlorperazine Edisylate 10 mg 12/19/21 10:31 12/21/21 08:42 Prochlorperazine 10 Mg/2 Ml Vial IVP 10 mg Q6HR PRN Administration Nausea / Vomiting Saccharomyces Boulardii 250 mg 12/19/21 08:00 12/21/21 08:41 Saccharomyces Boulardii 250 Mg Capsule PO 250 mg BIDWM JENNYFER Administration Sodium Chloride 10 ml 12/18/21 17:00 12/20/21 13:39 Sodium Chloride Flush 0.9% 10 Ml Syringe IVP 10 ml PRN PRN Administration NEEDED PER PROVIDER ORDERS Sodium Chloride 10 ml 12/18/21 17:00 12/21/21 08:45 Sodium Chloride Flush 0.9% 10 Ml Syringe IVP 10 ml 0100,0900,1700 JENNYFER Administration Tizanidine HCl 4 mg 12/18/21 21:36 12/21/21 06:19 Tizanidine 4 Mg Tablet PO 4 mg TID PRN Administration Spasms - Lab Result Fish Bone Diagrams: 12/21/21 04:53 12/21/21 04:53 - Additional Planning My Orders: My Active Orders 12/20/21 09:00 Loperamide [Imodium] 2 mg PO QID 12/21/21 07:00 Pantoprazole [Protonix] 40 mg PO QDAC 12/21/21 08:06 Magnesium Sulfate 2 Gram [Magnesium Sulfate] 2 gm in 50 ml IV ONCE 12/21/21 11:31 Echo Complete w/Bubble Study [ECHO] Routine 12/21/21 15:00 MAGNESIUM [CHEM] Timed Subjective - Subjective Patient Reports: Feeling Better (She has slightly more energy, continues to have watery diarrhea and was not asking for Imodium because was "worried about getting constipated". She worked with PT today) Objective Vital Signs: Vital Signs - 24 hr 12/20/21 12/20/21 12/20/21 13:15 15:34 21:26 Temperature 36.5 C 37.0 C 37.3 C Heart Rate [ 79 75 77 Brachial] Respiratory 20 16 20 Rate Blood Pressure 125/59 L 124/57 L [Left Brachial artery] Blood Pressure 164/94 H [Right Brachial artery] O2 Saturation 99 97 95 12/20/21 12/21/21 12/21/21 23:49 03:54 07:48 Temperature 36.6 C 36.5 C 36.6 C Heart Rate [ 68 68 64 Brachial] Respiratory 18 20 18 Rate Blood Pressure 117/64 132/67 H 149/63 H [Left Brachial artery] Blood Pressure [Right Brachial artery] O2 Saturation 97 96 94 Oxygen O2 Source Room air I&O (Last 24 Hrs): Intake and Output Totals x24h 12/19/21 12/20/21 12/21/21 23:59 23:59 23:59 Intake Total 3458.300 3465.000 1404.162 Output Total 0 Balance 3458.300 3465.000 1404.162 General: Alert, Oriented x3, Other (Cachectic, pale) HEENT: Mucous membr. moist/pink Neck: Supple Neuro: Alert, Other (L arm amd leg 4/5 strength) Cardiovascular: Regular rate Respiratory: No respiratory distress Abdomen: Soft Extremities: No edema, Other (R leg skin has old scar) - Results Results: Laboratory Results WBC 5.4 x10^3/uL (4.8-10.8) 12/21/21 04:53 RBC 3.62 10^6/uL (4.20-5.40) L 12/21/21 04:53 Hgb 11.1 g/dL (12.0-16.0) L 12/21/21 04:53 Hct 32.6 % (37.0-47.0) L 12/21/21 04:53 MCV 90.1 fL (81.0-99.0) 12/21/21 04:53 MCH 30.7 pg (27.0-31.0) 12/21/21 04:53 MCHC 34.0 g/dL (32.0-36.0) 12/21/21 04:53 RDW 15.4 % (12.0-15.0) H 12/21/21 04:53 Plt Count 235 10^3/uL (130-450) 12/21/21 04:53 MPV 11.6 fL (7.9-10.8) H 12/21/21 04:53 Neut # (Auto) 3.2 10^3/uL (1.5-6.6) 12/21/21 04:53 Lymph # (Auto) 1.1 10^3/uL (1.5-3.5) L 12/21/21 04:53 [place] # (Auto) 0.7 10^3/uL (0.0-1.0) 12/21/21 04:53 Eos # (Auto) 0.4 10^3/uL (0.0-0.7) 12/21/21 04:53 Baso # (Auto) 0.0 10^3/uL (0.0-0.1) 12/21/21 04:53 Absolute Nucleated RBC 0.00 x10^3/uL 12/21/21 04:53 Total Counted 100 12/18/21 12:32 Band Neuts % (Manual) 8 % (0-10) 12/18/21 12:32 Abnorm Lymph % (Manual) 0 % 12/18/21 12:32 Nucleated RBC % 0.0 /100WBC 12/21/21 04:53 Neutrophils # (Manual) 13.4 10^3/uL (1.5-6.6) H 12/18/21 12:32 Lymphocytes # (Manual) 1.5 10^3/uL (1.5-3.5) 12/18/21 12:32 Monocytes # (Manual) 2.0 10^3/uL (0.0-1.0) H 12/18/21 12:32 Eosinophils # (Manual) 0.0 10^3/uL (0-0.7) 12/18/21 12:32 Basophils # (Manual) 0.0 10^3/uL (0-0.1) 12/18/21 12:32 Differential Comment MANUAL DIFFERENTIAL 12/18/21 12:32 RBC Morph Micro Appear 1+ HYPOCHROMASIA (NORMAL) 12/18/21 12:32 Sodium 138 mmol/L (135-145) 12/21/21 04:53 Potassium 3.8 mmol/L (3.5-5.0) 12/21/21 04:53 Chloride 115 mmol/L (101-111) H 12/21/21 04:53 Carbon Dioxide 15 mmol/L (21-32) L 12/21/21 04:53 Anion Gap 8.0 (6-13) 12/21/21 04:53 BUN 6 mg/dL (6-20) 12/21/21 04:53 Creatinine 0.8 mg/dL (0.4-1.0) 12/21/21 04:53 Estimated GFR (MDRD) 69 (>89) L 12/21/21 04:53 Glucose 112 mg/dL (70-100) H 12/21/21 04:53 Estimat Average Glucose 134 mg/dL (70-100) H 12/18/21 12:32 Hemoglobin A1c % 6.3 % (4.27-6.07) H 12/18/21 12:32 Lactic Acid 1.5 mmol/L (0.5-2.2) 12/18/21 17:01 Calcium 8.1 mg/dL (8.5-10.3) L 12/21/21 04:53 Phosphorus 1.2 mg/dL (2.5-4.6) L 12/20/21 05:35 Magnesium 1.5 mg/dL (1.7-2.8) L 12/21/21 04:53 Total Bilirubin 0.7 mg/dL (0.2-1.0) 12/18/21 12:32 AST 18 IU/L (10-42) 12/18/21 12:32 ALT 11 IU/L (10-60) 12/18/21 12:32 Alkaline Phosphatase 64 IU/L (42-121) 12/18/21 12:32 Total Protein 6.1 g/dL (6.7-8.2) L 12/18/21 12:32 Albumin 2.8 g/dL (3.2-5.5) L 12/18/21 12:32 Globulin 3.3 g/dL (2.1-4.2) 12/18/21 12:32 Albumin/Globulin Ratio 0.8 (1.0-2.2) L 12/18/21 12:32 Lipase 29 U/L (22-51) 12/18/21 12:32 Urine Color YELLOW 12/18/21 13:24 Urine Clarity SL. CLOUDY (CLEAR) 12/18/21 13:24 Urine pH 6.0 PH (5.0-7.5) 12/18/21 13:24 Ur Specific [place] 1.025 (1.002-1.030) 12/18/21 13:24 Urine Protein TRACE mg/dL (NEGATIVE) 12/18/21 13:24 Urine Glucose (UA) NEGATIVE mg/dL (NEGATIVE) 12/18/21 13:24 Urine Ketones NEGATIVE mg/dL (NEGATIVE) 12/18/21 13:24 Urine Occult Blood MODERATE (NEGATIVE) H 12/18/21 13:24 Urine Nitrite POSITIVE (NEGATIVE) H 12/18/21 13:24 Urine Bilirubin NEGATIVE (NEGATIVE) 12/18/21 13:24 Urine Urobilinogen 0.2 (NORMAL) E.U./dL (NORMAL) 12/18/21 13:24 Ur Leukocyte Esterase NEGATIVE (NEGATIVE) 12/18/21 13:24 Urine RBC 11-25 /HPF (0-5) H 12/18/21 13:24 Urine WBC 6-10 /HPF (0-5) H 12/18/21 13:24 Ur Squamous Epith Cells FEW Squamous (<= Few) 12/18/21 13:24 Urine Bacteria Moderate /HPF (None Seen) H 12/18/21 13:24 Ur Microscopic Review INDICATED 12/18/21 13:24 Urine Culture Comments INDICATED 12/18/21 13:24 Nasal Adenovirus (PCR) NOT DETECTED 12/18/21 16:44 Nasal B. parapertussis DNA (PCR) NOT DETECTED 12/18/21 16:44 Nasal Coronavir 229E PCR NOT DETECTED 12/18/21 16:44 Nasal Coronavir HKU1 PCR NOT DETECTED 12/18/21 16:44 Nasal Coronavir NL63 PCR NOT DETECTED 12/18/21 16:44 Nasal Coronavir OC43 PCR NOT DETECTED 12/18/21 16:44 Nasal Enterovir/Rhinovir PCR NOT DETECTED 12/18/21 16:44 Nasal Influenza B PCR NOT DETECTED 12/18/21 16:44 Nasal Influenza A PCR NOT DETECTED 12/18/21 16:44 Nasal Parainfluen 1 PCR NOT DETECTED 12/18/21 16:44 Nasal Parainfluen 2 PCR NOT DETECTED 12/18/21 16:44 Nasal Parainfluen 3 PCR NOT DETECTED 12/18/21 16:44 Nasal Parainfluen 4 PCR NOT DETECTED 12/18/21 16:44 Nasal RSV (PCR) NOT DETECTED 12/18/21 16:44 Nasal B.pertussis DNA PCR NOT DETECTED 12/18/21 16:44 Nasal C.pneumoniae (PCR) NOT DETECTED 12/18/21 16:44 [place] Human Metapneumo PCR NOT DETECTED 12/18/21 16:44 Nasal M.pneumoniae (PCR) NOT DETECTED 12/18/21 16:44 Nasal SARS-CoV-2 (PCR) NOT DETECTED 12/18/21 16:44 Stl C. diff Tox B Gene NEGATIVE (NEGATIVE) 12/19/21 10:20 Sepsis Event Note (H) - Evaluation Current Stage of Sepsis: Sepsis Possible source of Sepsis: positive: Genitourinary - Sepsis Criteria Sepsis Criteria: Recorded Respiratory Rate greater than 20, WBC count greater than 12,000 or less than 4000
--- NOTE | 2021-12-21 12:58 | CONSULTATION NOTE ---
Palliative Care Consultation - Referral Referring Provider: Dr. Shea Toht Time of Visit: 09-04 Referral setting: Hospitalized patient Referral Reason: FTT/Goals of Care - Information Sources Records reviewed: Previous records reviewed History/Review of Systems obtained from: Patient Exam limitations: Clinical condition (mild cognitive deficits; word finding and tracking) - History of Present Illness Brief History of Present Illness: This is a jennifer 81-year-old female who has been admitted acutely with sepsis, pyelonephritis, and prolonged nausea and vomiting and diarrhea that has led to hypokalemia and hypomagnesia. Patient perceives this as a result of difficulty with her pericare, secondary to a stroke that she had on 11/09/2021.She reports she has significant left-sided weakness, difficulty with transfers and toileting, and managing at home was becoming more difficult. She feels the infection led to her high symptom burden, dehydration, and is still feeling quite weak. She has been tested for C. difficile that was negative, CT scan did not show colitis, and has assumed to be related to gastroenteritis and as a result of her infection. She had been in fairly good health prior to her stroke, is somewhat overwhelmed given her increased care needs, and most recently supporting her who is just completed treatment for his lung cancer. They have been 68 years, he has long-term had cardiac problems, and his mass was an incidental finding. They have been fairly involved in following through on his treatment plan, so this has really left them shaken. Patient's overall health actually has been fairly good. 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 They have always been [place], came to would be every summer, and finally moved to a senior care community but this was just prior to pet the pandemic. They do not know other neighbors, nor have been involved much with community resources.They do not have any children, she does have a sister who is in [place], as well as a nephew who is not currently been involved in their care.Of note patient's primary care provider is also in [place], as she has been her provider for over 30 years. She is aware this will be unrealistic in the future and will be looking at transitioning to a local provider. She had requested a palliative care referral in the context of the uncertainty for both her and her as they move forward in this healthcare journey Medical/Surgical History - Past Medical History Cardiovascular: reports: Hypertension, High cholesterol, Coronary artery disease, Coronary artery disease, Congestive heart failure, Hypertension Neuro: CVA Endocrine/Autoimmune: reports: Type 2 diabetes GI: reports: GERD : reports: Kidney stones Musculoskeletal: reports: Osteoarthritis, Other (hx of recent ankle fx x 2) MRSA Hx?: No - Past Surgical History /CURATOR OF EDUCATION: reports: Hysterectomy HEENT: reports: Tonsil/Adenoidectomy Derm: reports: Other (right leg reconstruction secondary to wound) Social History - Living Situation Living arrangement: At home Living Situation: With spouse/s.o. 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 She reports to live in a 1 level home, with grab bars. Her is currently completed treatment for lung cancer, they have been 60 years. They have lived on [facility] for 2 years. Family History - Family History Family History: Mother: , Cancer (dad liver CA, mother MM), CVA/TIA ( of stroke age 85), Father: , Cancer, Sister: Alive and Well Medications/Allergies - Medications Active Medication List: Active Medications Acetaminophen (Acetaminophen 325 Mg Tablet) 650 mg PO Q4HR PRN PRN Reason: Pain 1 to 4 Last Admin: 12/20/21 08:38 Dose: 650 mg Apixaban (Apixaban 5 Mg Tablet) 5 mg PO BID [facility] Last Admin: 12/21/21 08:41 Dose: 5 mg Aspirin (Aspirin Ec 81 Mg Tablet) 81 mg PO DAILY [facility] Last Admin: 12/21/21 08:42 Dose: 81 mg Atorvastatin Calcium (Atorvastatin 10 Mg Tablet) 20 mg PO QPM [facility] Last Admin: 12/20/21 21:32 Dose: 20 mg Calcium Carbonate/Glycine (Calcium Carbonate Chew 500 Mg Tablet) 500 mg PO TID PRN PRN Reason: Heartburn Last Admin: 12/20/21 23:21 Dose: 500 mg Hydralazine HCl (Hydralazine Inj 20 Mg/Ml Vial) 10 mg IVP QID PRN PRN Reason: Hypertensive Emergency Ceftriaxone Sodium 2 gm/ (Sodium Chloride) 100 mls @ 200 mls/hr IV DAILY [facility] Last Infusion: 12/21/21 09:35 Dose: Infused Potassium Chloride/Sodium Chloride (Normal Saline 0.9% W/20 Meq Kcl) 1,000 mls @ 83.333 mls/hr IV .Q12H [facility] Stop: 12/21/21 18:59 Last Infusion: 12/21/21 11:04 Dose: 83.333 mls/hr Multivitamins 10 ml/ TRACE ELEMENTS 1 ml/ Amino Acids/Electrolytes/Dextrose 2,011 mls @ 83 mls/hr IV Q24H [facility]; Protocol Loperamide HCl (Loperamide 2 Mg Capsule) 2 mg PO QID [facility] Last Admin: 12/21/21 08:42 Dose: 2 mg Magnesium Oxide (Magnesium Oxide 400 Mg Tablet) 400 mg PO DAILYWM [facility] Last Admin: 12/21/21 08:41 Dose: 400 mg Mineral Oil (Min Oil/Dimethicon/Coconut Oil 92 Gm Tube) 1 applic TOP PRN PRN PRN Reason: Skin Care Last Admin: 12/19/21 22:12 Dose: 1 applic Ondansetron HCl (Ondansetron 4 Mg/2 Ml Vial) 4 mg IVP Q4HR PRN PRN Reason: Nausea / Vomiting Last Admin: 12/20/21 13:39 Dose: 4 mg Pantoprazole Sodium (Pantoprazole 40 Mg Tablet) 40 mg PO QDAC [facility] Last Admin: 12/21/21 06:04 Dose: 40 mg Prochlorperazine Edisylate (Prochlorperazine 10 Mg/2 Ml Vial) 10 mg IVP Q6HR PRN PRN Reason: Nausea / Vomiting Last Admin: 12/21/21 08:42 Dose: 10 mg Saccharomyces Boulardii (Saccharomyces Boulardii 250 Mg Capsule) 250 mg PO BIDWM [facility] Last Admin: 12/21/21 08:41 Dose: 250 mg Sodium Chloride (Sodium Chloride Flush 0.9% 10 Ml Syringe) 10 ml IVP PRN PRN PRN Reason: NEEDED PER PROVIDER ORDERS Last Admin: 12/20/21 13:39 Dose: 10 ml Sodium Chloride (Sodium Chloride Flush 0.9% 10 Ml Syringe) 10 ml IVP 0100,0900,1700 [facility] Last Admin: 12/21/21 08:45 Dose: 10 ml Tizanidine HCl (Tizanidine 4 Mg Tablet) 4 mg PO TID PRN PRN Reason: Spasms Last Admin: 12/21/21 06:19 Dose: 4 mg Lovastatin 40 mg PO DAILY 06/08/14 Furosemide [Lasix] 80 mg PO BID 12/19/21 Omeprazole Magnesium 40 mg PO BID 12/19/21 Potassium Chloride [Klor-Con 10] 20 meq PO BID 12/19/21 Rivaroxaban [Xarelto] 15 mg PO DAILY 12/19/21 carvediloL [Coreg] mg PO BID 12/19/21 tiZANidine [Zanaflex] 4 mg PO Q8H PRN 12/19/21 traMADol [Ultram] 50 - 100 mg PO Q6H PRN 12/19/21 - Allergies Allergies/Adverse Reactions: Allergies Allergy/AdvReac Type Severity Reaction Status Date / Time BETY Inhibitors Allergy Respiratory Verified 12/18/21 13:12 levofloxacin [From Levaquin] Allergy Rash Verified 12/18/21 13:12 Sulfa (Sulfonamide Allergy Hives Verified 12/18/21 13:12 Antibiotics) Review of Systems - Constitutional Constitutional: reports: Fatigue, Weakness, Weight loss (on clear liquids). denies: Fever, Chills - Ears, Nose & Throat Ears, Nose & Throat: reports: Dry mouth - Cardiovascular Cardiovascular: reports: Decr. exercise tolerance - Respiratory Respiratory: denies: SOB at rest - Gastrointestinal Gastrointestinal: reports: Diarrhea (no diarrhea today thus far), Nausea, Poor appetite - Musculoskeletal Musculoskeletal: reports: Stiffness, Limited range of motion (left side), Muscle weakness, Assistive devices - Integumentary Integumentary: reports: Dryness - Neurological Neurological: reports: General weakness, Memory problems (patient reports more difficulty with memory; tracking and decision making with stroke and now recent acute illness) - Psychiatric Psychiatric: reports: Depression, Anxiety - Endocrine Endocrine: reports: Diabetes type 2 - Hematologic/Lymphatic Hematologic/Lymph: reports: Anemia (11.1), Recurrent infections (treated for pyelnephritis) - All Other Systems All Other Systems: reports: Reviewed and negative Physical Exam - Vital Signs Vital Signs: Vital Signs x48h Temp Pulse Pulse Pulse Resp BP BP 12/21/21 11:11 65 102/61 12/21/21 11:02 36.3 C L 71 22 102/61 12/21/21 07:48 36.6 C 64 18 149/63 H Pulse Ox 12/21/21 11:11 12/21/21 11:02 97 12/21/21 07:48 94 - Physical Exam General Appearance: positive: No acute distress, Alert Eyes Bilateral: positive: Normal inspection Neck: positive: Trachea midline Respiratory: positive: No respiratory distress Abdomen: positive: Soft, Tenderness Skin: positive: Pallor Extremities: positive: No pedal edema Neurologic/Psychiatric: positive: Mood/affect nml, Disoriented to time, Flat affect Palliative Care - POLST Patient has POLST: Yes POLST Status: DNR (reports has POLST at home on refridgerator; does not recall if selected tx or comfort; discussed need for new form, updated particularly if going to snf) Feelings of wellbeing/Perceived Quality of Life: Poor, Worsening Sleep: Variable sleep pattern (difficulty with hospitalization) Performance Status: Patient had an acute decline in her performance status compared to prior stroke, reports it has slowly improved since then. Her goal is to be independent particularly in toileting, she feels like she is improving but still has a significant way to go. There has been discussion about her going to a SNF, she is somewhat worried regarding Covid status. Has benefited from PT/OT here, would benefit from ST for cognitive eval and exercises.She most likely if not going to SNF, should get support through home health, PT/OT/ST for cognitive. - Palliative Care Discussion: Patient does admit to feeling overwhelmed in the context of her most recent health care crisis, she does feel like she is improving some. She reports they had a traditional marriage with traditional roles, has been difficult for his h usband to take on the role of caregiving. He himself has had significant health issues, and her perception is he is somewhat frail. They have minimal support, her sister has been calling and checking on him, she reports the mailbox is full and has not been able to get through. We discussed the continuum of care, and her most recent acute stroke. 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 She reports they do have DPOA for each other, though in discussion with both of their healthcare status, recommended they consider identifying a second 1. She also reports she has resources to be able to hire assistance, but is aware limitations regarding this as well. Patient aware of the recommendation of SNF, at least for couple weeks until she is independent in toileting. We discussed home health at this point she would qualify, given she is homebound is considerable and taxing effort for her to leave the home, as well as the need for the full PT/OT/ST team. They do not have not talked about a long-term plan if either one of them were to deteriorate further. Patient reports she does have a POLST with DN AR and has identified herself as a DN AR and DNI on admission. We did discuss given her possible transition to a SNF, we should update this so it is reflective of her current goals. She is feeling overwhelmed, and having difficulty navigating her current situation. Results - Lab Results Lab results reviewed: Yes Fish Bones: 12/21/21 04:53 12/21/21 04:53 Lab and Imaging Results: Lab Results x24hrs 12/21/21 12/21/21 12/21/21 Range/Units 04:53 04:53 04:53 WBC 5.4 (4.8-10.8) x10^3/uL RBC 3.62 L (4.20-5.40) 10^6/uL Hgb 11.1 L (12.0-16.0) g/dL Hct 32.6 L (37.0-47.0) % MCV 90.1 (81.0-99.0) fL MCH 30.7 (27.0-31.0) pg MCHC 34.0 (32.0-36.0) g/dL RDW 15.4 H (12.0-15.0) % Plt Count 235 (130-450) 10^3/uL MPV 11.6 H (7.9-10.8) fL Neut # (Auto) 3.2 (1.5-6.6) 10^3/uL Lymph # (Auto) 1.1 L (1.5-3.5) 10^3/uL Snyder # (Auto) 0.7 (0.0-1.0) 10^3/uL Eos # (Auto) 0.4 (0.0-0.7) 10^3/uL Baso # (Auto) 0.0 (0.0-0.1) 10^3/uL Absolute Nucleated RBC 0.00 x10^3/uL Nucleated RBC % 0.0 /100WBC Sodium 138 (135-145) mmol/L Potassium 3.8 (3.5-5.0) mmol/L Chloride 115 H (101-111) mmol/L Carbon Dioxide 15 L (21-32) mmol/L Anion Gap 8.0 (6-13) BUN 6 (6-20) mg/dL Creatinine 0.8 (0.4-1.0) mg/dL Estimated GFR (MDRD) 69 L (>89) Glucose 112 H (70-100) mg/dL Calcium 8.1 L (8.5-10.3) mg/dL Magnesium 1.5 L (1.7-2.8) mg/dL Impression and Recommendations - Palliative Care Impression: This is an 81-year-old woman who presents with history of CVA with left-sided weakness, acute admit for polynephritis, with persistent nausea and vomiting and diarrhea. She still has residual from her stroke, as well as exacerbation from her recent acute admission, and is feeling both physically and emotionally overwhelmed.Palliative care has been asked to meet with patient, regarding goals of care and for further support in the context of advanced care planning. Recommendations/Counseling Done: 1. Depression. Patient with recent acute change in condition initially with stroke deficits, has loss of independence, concern for long-term planning, is having more difficulty with problem solving. Patient tends to be quite pragmatic, but is feeling overwhelmed. Patient may benefit from low-dose mirtazapine both for appetite and treatment of depression. We will continue to monitor. Psychosocial support and review of patient's current concerns. 2. Advanced care planning. Patient remains acutely ill with nausea and diarrhea and persistent weakness. Patient aware of the recommendation for SNF placement for further strengthening and adjustment to her new deficits. Her g oals are to regain independence, this includes being able to toilet independently. She does understand she will need some support long-term. We also discussed if SNF placement given her restrictions for a COVID negative facility, would consider at least home health support both PT and OT as well as ST for cognitive support. Patient does perceive deficits after the stroke, and finds this problematic. Counseling provided regarding need for DPOA other than just given both their frail status, she will consider this in the future. We also discussed the POLST, provided new form, will come back and visit to complete for transition plan.
[2021-12-21] MEDS: ACETAMINOPHEN 325 MG TABLET PO PRN (17:23)
[2021-12-21] MEDS: PPN (CLINIMIX E 4.25/5) 2,000 ML with MULTIVITAMIN 10 ML, TRACE ELEMENTS 1 ML IV SCH ×3 (18:58)
[2021-12-21] MEDS: FAT EMULSION 20% 250 ML IV SCH (18:59)
--- NOTE | 2021-12-21 19:42 | PROVIDER PROGRESS NOTE ---
Assessment/Plan - Problem List (1) Pyelonephritis Assessment/Plan: CT of abdomen and pelvis showed bilateral pyelonephritis. She had pain in flanks. Patient also had low degree fever at presentation. She is on intravenous Rocephin. Blood cx are neg but urine cx has grown E coli, carter sensitive. Continue gentle intravenous IV fluids. (2) E coli UTI Her urine culture results shows E. coli which is pansensitive. The blood culture is negative to date. Will continue with iv antibx due to her nausea, and not start an oral antibx until nausea resolves. (3) N/V She has continued nausea but no more vomiting and the IV Zofran is wearing off before the every 4 hours treatment allows another dose. we added IV Compazine prm to be staggered with the Zofran. He CT abd showed no signif GI problems Will needed to de-escalate her diet to a clear liquid diet. Even with that she gets nauseated trying clear liquids. Will continue iv fluids containing D5. (4) Diarrhea Conclusion/Plan: Patient also reported many days of liquid diarrhea after swallowing liquids. A PCR for C. difficile is neg. Her abd CT did not show colitis. This is likely a (viral) gastroenteritis Will needed to de-escalate her diet to a clear liquid diet for bowel rest. Continue intravenous IV fluids. We changed the imodium to scheduled qid Continue laboratory monitoring Will also order stool cultures for O&P, Shigella, [place], etc (5) Hypokalemia Conclusion/Plan: This was likely caused by patient'sprolonged vomiting and diarrhea. Will replace in her daily IV maintenance fluids and give potassium riders. She did not tolerate oral potassium replacement because of her nausea. Continue daily laboratory monitoring Continue telem monitoring (6) Hypomagnesemia Conclusion/Plan: This is likely from many days of magnesium loss in the diarrhea. We will replace with magnesium p.o. and/or IV. Follow serum magnesium level daily (7) Recent stroke Conclusion/Plan: Patient has a history of stroke1 month ago, in Oct 2021, and has mild residual left-sided weakness. She was not admitted for this at the time because she had refused. 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 She has not undergone an Echo here, to evaluate for a cardiac source of embolus. We will resume patient home medications (ASA, etc) after confirmed by pharmacy. PT has started to see her and OT evaluation for post-stroke will be done today. She was seen by Palliative curriculum consultant today (at her request), and Klarissa Grady NP advised a cognitive eval be done. Will order a separate OT eval for cognition. (8) Severe malnutrition She admits to por po intake for >1 week and her BMI is 25 Will request a Nutrition consult re Malnutrition and diet recommendations. (9) Abnormal EKG Her EKG done at admission showed sinus rhythm, and marked T wave flattening in all her phil-lateral leads, which was a new finding from her EKG from just a month ago, done 11/09/2021. She has not yet undergone an Echo here, to evaluate for a cardiac source of embolus for the recent stroke. Will resume her home antiplatelet and statin medications once they are reconciled. Will obtain a complete Echo (but today is Sun and no Echo service available until Tue). (10) Sepsis Assessment/Plan: Resolved. Patient had elevated WBC, low degree fever, urinalysis showed urinary tract infection, and pyelonephritis as the source. WBC has improved - Current Meds Current Meds: Current Medications Generic Name Dose Route Start Last Admin Trade Name Freq PRN Reason Stop Dose Admin Acetaminophen 650 mg 12/18/21 17:00 12/21/21 17:23 Acetaminophen 325 Mg Tablet PO 650 mg Q4HR PRN Administration Pain 1 to 4 Apixaban 5 mg 12/19/21 21:00 12/21/21 08:41 Apixaban 5 Mg Tablet PO 5 mg BID JENNYFER Administration Aspirin 81 mg 12/19/21 12:00 12/21/21 08:42 Aspirin Ec 81 Mg Tablet PO 81 mg DAILY JENNYFER Administration Atorvastatin Calcium 20 mg 12/19/21 21:00 12/20/21 21:32 Atorvastatin 10 Mg Tablet PO 20 mg QPM JENNYFER Administration Calcium Carbonate/Glycine 500 mg 12/19/21 10:32 12/20/21 23:21 Calcium Carbonate Chew 500 Mg Tablet PO 500 mg TID PRN Administration Heartburn Ceftriaxone Sodium 2 gm/ 100 mls @ 200 mls/hr 12/18/21 18:37 12/21/21 09:35 Sodium Chloride IV Infused DAILY JENNYFER Infusion Multivitamins 10 ml/ TRACE 2,011 mls @ 83 mls/hr 12/21/21 19:00 12/21/21 18:58 ELEMENTS 1 ml/ Amino Acids/ IV 83 mls/hr Electrolytes/Dextrose Q24H JENNYFER Administration Protocol Fat Emulsion Intravenous 250 mls @ 21 mls/hr 12/21/21 19:00 12/21/21 18:59 Intralipid 20% IV 21 mls/hr 1900 JENNYFER Administration Loperamide HCl 2 mg 12/20/21 09:00 12/21/21 17:16 Loperamide 2 Mg Capsule PO 2 mg QID JENNYFER Administration Magnesium Oxide 400 mg 12/19/21 10:00 12/21/21 08:41 Magnesium Oxide 400 Mg Tablet PO 400 mg DAILYWM JENNYFER Administration Mineral Oil 1 applic 12/18/21 20:57 12/19/21 22:12 Min Oil/Dimethicon/Coconut Oil 92 Gm Tube TOP 1 applic PRN PRN Administration Skin Care Ondansetron HCl 4 mg 12/18/21 22:34 12/20/21 13:39 Ondansetron 4 Mg/2 Ml Vial IVP 4 mg Q4HR PRN Administration Nausea / Vomiting Pantoprazole Sodium 40 mg 12/21/21 07:00 12/21/21 06:04 Pantoprazole 40 Mg Tablet PO 40 mg QDAC JENNYFER Administration Prochlorperazine Edisylate 10 mg 12/19/21 10:31 12/21/21 18:59 Prochlorperazine 10 Mg/2 Ml Vial IVP 10 mg Q6HR PRN Administration Nausea / Vomiting Saccharomyces Boulardii 250 mg 12/19/21 08:00 12/21/21 17:16 Saccharomyces Boulardii 250 Mg Capsule PO 250 mg BIDWM JENNYFER Administration Sodium Chloride 10 ml 12/18/21 17:00 12/20/21 13:39 Sodium Chloride Flush 0.9% 10 Ml Syringe IVP 10 ml PRN PRN Administration NEEDED PER PROVIDER ORDERS Sodium Chloride 10 ml 12/18/21 17:00 12/21/21 17:15 Sodium Chloride Flush 0.9% 10 Ml Syringe IVP 10 ml 0100,0900,1700 JENNYFER Administration Tizanidine HCl 4 mg 12/18/21 21:36 12/21/21 06:19 Tizanidine 4 Mg Tablet PO 4 mg TID PRN Administration Spasms - Lab Result Fish Bone Diagrams: 12/21/21 04:53 12/21/21 04:53 - Additional Planning My Orders: My Active Orders 12/21/21 Clinical Swallow Evaluation [ST] Routine Evaluate and Treat OT [OT] Routine Evaluate and Treat OT [OT] Routine 12/21/21 07:00 Pantoprazole [Protonix] 40 mg PO QDAC 12/21/21 11:31 Echo Complete w/Bubble Study [ECHO] Routine 12/21/21 11:35 Daily Weight [RC] DAILY 12/21/21 19:00 Fat Emulsion 20% [Intralipid 20%] 250 ml IV 1900 Multivitamin [Infuvite] 10 ml Trace Elements [Tralement Vial] 1 ml Ppn (Clinimix E 4.25/5) [Clinimix E 4.25%-5% Solution] 2,000 ml IV Q24H 12/22/21 05:00 COMPREHENSIVE METABOLIC PANEL [CHEM] Routine MAGNESIUM [CHEM] Routine PHOSPHORUS [CHEM] Routine PREALBUMIN [CHEM] Routine TRIGLYCERIDES [CHEM] Routine 12/24/21 05:00 MAGNESIUM [CHEM] Routine PHOSPHORUS [CHEM] Routine PREALBUMIN [CHEM] Routine TRIGLYCERIDES [CHEM] Routine 12/26/21 05:00 COMPREHENSIVE METABOLIC PANEL [CHEM] Routine MAGNESIUM [CHEM] Routine PHOSPHORUS [CHEM] Routine PREALBUMIN [CHEM] Routine TRIGLYCERIDES [CHEM] Routine 12/29/21 05:00 COMPREHENSIVE METABOLIC PANEL [CHEM] Routine MAGNESIUM [CHEM] Routine PHOSPHORUS [CHEM] Routine PREALBUMIN [CHEM] Routine TRIGLYCERIDES [CHEM] Routine Objective Vital Signs: Vital Signs - 24 hr 12/20/21 12/20/21 12/21/21 21:26 23:49 03:54 Temperature 37.3 C 36.6 C 36.5 C Heart Rate [ 77 68 68 Brachial] Heart Rate [ Monitoring electrodes] Heart Rate [ Sitting] Respiratory 20 18 20 Rate Blood Pressure 124/57 L 117/64 132/67 H [Left Brachial artery] Blood Pressure [Right Brachial artery] Blood Pressure [Sitting] O2 Saturation 95 97 96 12/21/21 12/21/21 12/21/21 07:48 11:02 11:11 Temperature 36.6 C 36.3 C L Heart Rate [ 64 Brachial] Heart Rate [ 71 Monitoring electrodes] Heart Rate [ 65 Sitting] Respiratory 18 22 Rate Blood Pressure 149/63 H 102/61 [Left Brachial artery] Blood Pressure [Right Brachial artery] Blood Pressure 102/61 [Sitting] O2 Saturation 94 97 12/21/21 16:00 Temperature 36.5 C Heart Rate [ 69 Brachial] Heart Rate [ Monitoring electrodes] Heart Rate [ Sitting] Respiratory 20 Rate Blood Pressure [Left Brachial artery] Blood Pressure 143/87 H [Right Brachial artery] Blood Pressure [Sitting] O2 Saturation 97 Oxygen O2 Source Room air I&O (Last 24 Hrs): Intake and Output Totals x24h 12/19/21 12/20/21 12/21/21 23:59 23:59 23:59 Intake Total 3458.300 3465.000 2886.941 Output Total 0 1 Balance 3458.300 3465.000 2885.941 General: Alert, No acute distress, Other (Cachectic, ashen appearing) HEENT: Mucous membr. moist/pink Neck: Supple Neuro: Alert, Other (mild L arm and leg weakness, R leg weak from old skin graft surgery) Cardiovascular: Regular rate Respiratory: No respiratory distress Abdomen: Soft Extremities: No edema, No tenderness/swelling - Results Results: Laboratory Results WBC 5.4 x10^3/uL (4.8-10.8) 12/21/21 04:53 RBC 3.62 10^6/uL (4.20-5.40) L 12/21/21 04:53 Hgb 11.1 g/dL (12.0-16.0) L 12/21/21 04:53 Hct 32.6 % (37.0-47.0) L 12/21/21 04:53 MCV 90.1 fL (81.0-99.0) 12/21/21 04:53 MCH 30.7 pg (27.0-31.0) 12/21/21 04:53 MCHC 34.0 g/dL (32.0-36.0) 12/21/21 04:53 RDW 15.4 % (12.0-15.0) H 12/21/21 04:53 Plt Count 235 10^3/uL (130-450) 12/21/21 04:53 MPV 11.6 fL (7.9-10.8) H 12/21/21 04:53 Neut # (Auto) 3.2 10^3/uL (1.5-6.6) 12/21/21 04:53 Lymph # (Auto) 1.1 10^3/uL (1.5-3.5) L 12/21/21 04:53 [place] # (Auto) 0.7 10^3/uL (0.0-1.0) 12/21/21 04:53 Eos # (Auto) 0.4 10^3/uL (0.0-0.7) 12/21/21 04:53 Baso # (Auto) 0.0 10^3/uL (0.0-0.1) 12/21/21 04:53 Absolute Nucleated RBC 0.00 x10^3/uL 12/21/21 04:53 Total Counted 100 12/18/21 12:32 Band Neuts % (Manual) 8 % (0-10) 12/18/21 12:32 Abnorm Lymph % (Manual) 0 % 12/18/21 12:32 Nucleated RBC % 0.0 /100WBC 12/21/21 04:53 Neutrophils # (Manual) 13.4 10^3/uL (1.5-6.6) H 12/18/21 12:32 Lymphocytes # (Manual) 1.5 10^3/uL (1.5-3.5) 12/18/21 12:32 Monocytes # (Manual) 2.0 10^3/uL (0.0-1.0) H 12/18/21 12:32 Eosinophils # (Manual) 0.0 10^3/uL (0-0.7) 12/18/21 12:32 Basophils # (Manual) 0.0 10^3/uL (0-0.1) 12/18/21 12:32 Differential Comment MANUAL DIFFERENTIAL 12/18/21 12:32 RBC Morph Micro Appear 1+ HYPOCHROMASIA (NORMAL) 12/18/21 12:32 Sodium 138 mmol/L (135-145) 12/21/21 04:53 Potassium 3.8 mmol/L (3.5-5.0) 12/21/21 04:53 Chloride 115 mmol/L (101-111) H 12/21/21 04:53 Carbon Dioxide 15 mmol/L (21-32) L 12/21/21 04:53 Anion Gap 8.0 (6-13) 12/21/21 04:53 BUN 6 mg/dL (6-20) 12/21/21 04:53 Creatinine 0.8 mg/dL (0.4-1.0) 12/21/21 04:53 Estimated GFR (MDRD) 69 (>89) L 12/21/21 04:53 Glucose 112 mg/dL (70-100) H 12/21/21 04:53 Estimat Average Glucose 134 mg/dL (70-100) H 12/18/21 12:32 Hemoglobin A1c % 6.3 % (4.27-6.07) H 12/18/21 12:32 Lactic Acid 1.5 mmol/L (0.5-2.2) 12/18/21 17:01 Calcium 8.1 mg/dL (8.5-10.3) L 12/21/21 04:53 Phosphorus 1.2 mg/dL (2.5-4.6) L 12/20/21 05:35 Magnesium 1.9 mg/dL (1.7-2.8) 12/21/21 15:16 Total Bilirubin 0.7 mg/dL (0.2-1.0) 12/18/21 12:32 AST 18 IU/L (10-42) 12/18/21 12:32 ALT 11 IU/L (10-60) 12/18/21 12:32 Alkaline Phosphatase 64 IU/L (42-121) 12/18/21 12:32 Total Protein 6.1 g/dL (6.7-8.2) L 12/18/21 12:32 Albumin 2.8 g/dL (3.2-5.5) L 12/18/21 12:32 Globulin 3.3 g/dL (2.1-4.2) 12/18/21 12:32 Albumin/Globulin Ratio 0.8 (1.0-2.2) L 12/18/21 12:32 Lipase 29 U/L (22-51) 12/18/21 12:32 Urine Color YELLOW 12/18/21 13:24 Urine Clarity SL. CLOUDY (CLEAR) 12/18/21 13:24 Urine pH 6.0 PH (5.0-7.5) 12/18/21 13:24 Ur Specific [place] 1.025 (1.002-1.030) 12/18/21 13:24 Urine Protein TRACE mg/dL (NEGATIVE) 12/18/21 13:24 Urine Glucose (UA) NEGATIVE mg/dL (NEGATIVE) 12/18/21 13:24 Urine Ketones NEGATIVE mg/dL (NEGATIVE) 12/18/21 13:24 Urine Occult Blood MODERATE (NEGATIVE) H 12/18/21 13:24 Urine Nitrite POSITIVE (NEGATIVE) H 12/18/21 13:24 Urine Bilirubin NEGATIVE (NEGATIVE) 12/18/21 13:24 Urine Urobilinogen 0.2 (NORMAL) E.U./dL (NORMAL) 12/18/21 13:24 Ur Leukocyte Esterase NEGATIVE (NEGATIVE) 12/18/21 13:24 Urine RBC 11-25 /HPF (0-5) H 12/18/21 13:24 Urine WBC 6-10 /HPF (0-5) H 12/18/21 13:24 Ur Squamous Epith Cells FEW Squamous (<= Few) 12/18/21 13:24 Urine Bacteria Moderate /HPF (None Seen) H 12/18/21 13:24 Ur Microscopic Review INDICATED 12/18/21 13:24 Urine Culture Comments INDICATED 12/18/21 13:24 Nasal Adenovirus (PCR) NOT DETECTED 12/18/21 16:44 Nasal B. parapertussis DNA (PCR) NOT DETECTED 12/18/21 16:44 Nasal Coronavir 229E PCR NOT DETECTED 12/18/21 16:44 Nasal Coronavir HKU1 PCR NOT DETECTED 12/18/21 16:44 Nasal Coronavir NL63 PCR NOT DETECTED 12/18/21 16:44 Nasal Coronavir OC43 PCR NOT DETECTED 12/18/21 16:44 Nasal Enterovir/Rhinovir PCR NOT DETECTED 12/18/21 16:44 Nasal Influenza B PCR NOT DETECTED 12/18/21 16:44 Nasal Influenza A PCR NOT DETECTED 12/18/21 16:44 Nasal Parainfluen 1 PCR NOT DETECTED 12/18/21 16:44 Nasal Parainfluen 2 PCR NOT DETECTED 12/18/21 16:44 Nasal Parainfluen 3 PCR NOT DETECTED 12/18/21 16:44 Nasal Parainfluen 4 PCR NOT DETECTED 12/18/21 16:44 Nasal RSV (PCR) NOT DETECTED 12/18/21 16:44 Nasal B.pertussis DNA PCR NOT DETECTED 12/18/21 16:44 Nasal C.pneumoniae (PCR) NOT DETECTED 12/18/21 16:44 [place] Human Metapneumo PCR NOT DETECTED 12/18/21 16:44 Nasal M.pneumoniae (PCR) NOT DETECTED 12/18/21 16:44 Nasal SARS-CoV-2 (PCR) NOT DETECTED 12/18/21 16:44 Stl C. diff Tox B Gene NEGATIVE (NEGATIVE) 12/19/21 10:20 Sepsis Event Note (H) - Evaluation Current Stage of Sepsis: Sepsis Possible source of Sepsis: positive: Genitourinary - Sepsis Criteria Sepsis Criteria: Recorded Respiratory Rate greater than 20, WBC count greater than 12,000 or less than 4000
[2021-12-21] MEDS: ATORVASTATIN 10 MG TABLET PO SCH (20:25)
[2021-12-21] MEDS: CALCIUM CARBONATE CHEW 500 MG TABLET PO PRN (20:32)
[2021-12-22] MEDS: SODIUM CHLORIDE FLUSH 0.9% 10 ML SYRINGE IVP SCH ×3 (00:15→17:19)
[2021-12-22 04:28] LABS: BASOPHILS % (AUTO) 0.7 %; EOSINOPHILS # (AUTO) 0.5 10^3/uL (0.0-0.7); EOSINOPHILS % (AUTO) 8.4 %; HCT - HEMATOCRIT 33.5 % (37.0-47.0); LYMPHOCYTES % (AUTO) 19.4 %; MEAN CORPUSCULAR HEMOGLOBIN 30.1 pg (27.0-31.0); MEAN CORPUSCULAR HGB CONC 32.8 g/dL (32.0-36.0); MEAN CORPUSCULAR VOLUME 91.5 fL (81.0-99.0); MEAN PLATELET VOLUME 11.9 fL (7.9-10.8); MONOCYTES # (AUTO) 0.8 10^3/uL (0.0-1.0); MONOCYTES % (AUTO) 14.3 %; NEUTROPHILS # (AUTO) 3.1 10^3/uL (1.5-6.6); NEUTROPHILS % (AUTO) 56.8 %; PLT - PLATELET COUNT 253 10^3/uL (130-450); RED BLOOD COUNT 3.66 10^6/uL (4.20-5.40); RED CELL DISTRIBUTION WIDTH 15.8 % (12.0-15.0); WHITE BLOOD COUNT 5.4 x10^3/uL (4.8-10.8)
[2021-12-22] MEDS: PANTOPRAZOLE 40 MG TABLET PO SCH (05:58)
[2021-12-22 07:59] LABS: CALCIUM 8.3 mg/dL (8.5-10.3); CREATININE 0.9 mg/dL (0.4-1.0); MAGNESIUM 1.8 mg/dL (1.7-2.8); PHOSPHORUS 2.3 mg/dL (2.5-4.6); POTASSIUM 3.8 mmol/L (3.5-5.0)
[2021-12-22] MEDS: SODIUM CHLORIDE FLUSH 0.9% 10 ML SYRINGE IVP PRN (08:21)
[2021-12-22] MEDS: ONDANSETRON 4 MG/2 ML VIAL IVP PRN (08:21)
[2021-12-22] MEDS: APIXABAN 5 MG TABLET PO SCH ×2 (08:25→20:37)
[2021-12-22] MEDS: SACCHAROMYCES BOULARDII 250 MG CAPSULE PO SCH ×2 (08:25→17:18)
[2021-12-22] MEDS: MAGNESIUM OXIDE 400 MG TABLET PO SCH (08:25)
[2021-12-22] MEDS: ASPIRIN EC 81 MG TABLET PO SCH (08:26)
[2021-12-22] MEDS: LOPERAMIDE 2 MG CAPSULE PO SCH (08:26)
[2021-12-22] MEDS ORDERED: LOPERAMIDE 2 MG CAPSULE PO PRN (10:39)
[2021-12-22] MEDS: tiZANidine 4 MG TABLET PO PRN ×2 (10:45→19:30)
--- NOTE | 2021-12-22 10:58 | PROVIDER PROGRESS NOTE ---
Assessment/Plan - Problem List (1) Pyelonephritis Assessment/Plan: 3 pt resent N/V/D for 8 days at home, Patient also had temperature 37.9 at the admission, and significant elevated WBC. CT of abdomen and pelvis showed bilateral pyelonephritis. She had pain in flanks. UA culture was positive E.coli and pansensitive. pharmacy recommend Ancef for pt now because Rocephin is un- compatible to her Calcium intake (2) E coli UTI 12/22 pt's urine culture results shows E. coli which is pansensitive. The blood culture is negative to date. continue antibiotic Ancef and probiotics (3) N/V 3 pt report she feel better. N/V is likely secondary to pt's pyelonephritis and virus gastritis as well. Pt still complain nausea on today and hope to keep clear diet. pt already started with PPN. Discussed pt for advance her diet as her tolerated. pt understood she will eventually eat by oral, not dependent to parent nutrition. continue antiemesis as needed, and gradually advance her diet as her tolerated, wane off her PPN gradually as well. continue lab and vital monitor (4) Diarrhea Conclusion/Plan: pt was reported to have loose stool and improved, and stool cultures for O&P, Shigella, [place] are pending. CT of abdomen/pelvis did not show colitis. C.diff test was negative. pt was prescribed Imodium PRN (5) Hypokalemia resolved (6) Hypomagnesemia resolved. (7) Recent stroke Conclusion/Plan: Patient has a history of stroke about one month ago, in Oct 2021, and has mild residual left-sided weakness. Pt already had outpatient vascular surgery evaluation and no intervention is planned for her carotid occlusion. Her ECHO study is Unremarkable. PT and OT had evaluation and treatment for pt, and recommended to SNF. resume her home antiplatelet and statin medications (8) Severe malnutrition pt resent N/V/D for 8 days at home. The patient had nutritional intake of less than 50% of recommended for 2 weeks or more, weight loss of 7 kg down in 1 to 2 months or 10% of her body weight was lost continue Nutrition consult and diet recommendations. pt is on PPN now because pt's poor oral nutrition intake and continue nausea (9) Sepsis Assessment/Plan: Resolved. pt has no more fever, WBC is at normal arrange, blood culture is negative. Patient is hemodynamic stable. Patient had elevated WBC, low degree fever, urinalysis showed urinary tract infection, and pyelonephritis as the source. - Current Meds Current Meds: Current Medications Generic Name Dose Route Start Last Admin Trade Name Freq PRN Reason Stop Dose Admin Acetaminophen 650 mg 12/18/21 17:00 12/21/21 17:23 Acetaminophen 325 Mg Tablet PO 650 mg Q4HR PRN Administration Pain 1 to 4 Apixaban 5 mg 12/19/21 21:00 12/22/21 08:25 Apixaban 5 Mg Tablet PO 5 mg BID JENNYFER Administration Aspirin 81 mg 12/19/21 12:00 12/22/21 08:26 Aspirin Ec 81 Mg Tablet PO 81 mg DAILY JENNYFER Administration Atorvastatin Calcium 20 mg 12/19/21 21:00 12/21/21 20:25 Atorvastatin 10 Mg Tablet PO 20 mg QPM JENNYFER Administration Calcium Carbonate/Glycine 500 mg 12/19/21 10:32 12/21/21 20:32 Calcium Carbonate Chew 500 Mg Tablet PO 500 mg TID PRN Administration Heartburn Multivitamins 10 ml/ TRACE 2,011 mls @ 83 mls/hr 12/21/21 19:00 12/21/21 23:02 ELEMENTS 1 ml/ Amino Acids/ IV 83 mls/hr Electrolytes/Dextrose Q24H JENNYFER Infusion Protocol Fat Emulsion Intravenous 250 mls @ 21 mls/hr 12/21/21 19:00 12/22/21 07:31 Intralipid 20% IV Infused 1900 JENNYFER Infusion Magnesium Oxide 400 mg 12/19/21 10:00 12/22/21 08:25 Magnesium Oxide 400 Mg Tablet PO 400 mg DAILYWM JENNYFER Administration Mineral Oil 1 applic 12/18/21 20:57 12/19/21 22:12 Min Oil/Dimethicon/Coconut Oil 92 Gm Tube TOP 1 applic PRN PRN Administration Skin Care Ondansetron HCl 4 mg 12/18/21 22:34 12/22/21 08:21 Ondansetron 4 Mg/2 Ml Vial IVP 4 mg Q4HR PRN Administration Nausea / Vomiting Pantoprazole Sodium 40 mg 12/21/21 07:00 12/22/21 05:58 Pantoprazole 40 Mg Tablet PO 40 mg QDAC JENNYFER Administration Prochlorperazine Edisylate 10 mg 12/19/21 10:31 12/21/21 18:59 Prochlorperazine 10 Mg/2 Ml Vial IVP 10 mg Q6HR PRN Administration Nausea / Vomiting Saccharomyces Boulardii 250 mg 12/19/21 08:00 12/22/21 08:25 Saccharomyces Boulardii 250 Mg Capsule PO 250 mg BIDWM JENNYFER Administration Sodium Chloride 10 ml 12/18/21 17:00 12/22/21 08:21 Sodium Chloride Flush 0.9% 10 Ml Syringe IVP 10 ml PRN PRN Administration NEEDED PER PROVIDER ORDERS Sodium Chloride 10 ml 12/18/21 17:00 12/22/21 08:26 Sodium Chloride Flush 0.9% 10 Ml Syringe IVP Not Given 0100,0900,1700 JENNYFER Tizanidine HCl 4 mg 12/18/21 21:36 12/22/21 10:45 Tizanidine 4 Mg Tablet PO 4 mg TID PRN Administration Spasms - Lab Result Fish Bone Diagrams: 12/22/21 04:08 12/22/21 04:08 - Additional Planning My Orders: My Active Orders 12/22/21 Breakfast Clear Liquid Diet [DIET] 12/22/21 10:02 Out of bed 3+ hours today [RC] TID 12/22/21 10:39 Loperamide [Imodium] 2 mg PO QID PRN 12/22/21 11:00 ceFAZolin [Ancef] 1 gm Sodium Chloride 0.9% Minibag [Normal Saline 0.9% Minibag] 100 ml IV Q8H 12/22/21 12:00 Neutra-Phos [K-Phos Neutral] 250 mg PO TIDWM 12/23/21 05:00 BMP - BASIC METABOLIC PANEL [CHEM] DAILYLAB CBC - COMP BLD CT W/AUTO DIFF [HEME] DAILYLAB MAGNESIUM [CHEM] DAILYLAB 12/24/21 05:00 BMP - BASIC METABOLIC PANEL [CHEM] DAILYLAB CBC - COMP BLD CT W/AUTO DIFF [HEME] DAILYLAB Subjective - Subjective Patient Reports: Feeling Better, Resting Comfortably Objective Vital Signs: Vital Signs - 24 hr 12/21/21 12/21/21 12/21/21 11:02 11:11 16:00 Temperature 36.3 C L 36.5 C Heart Rate [ 69 Brachial] Heart Rate [ 71 Monitoring electrodes] Heart Rate [ Radial] Heart Rate [ 65 Sitting] Respiratory 22 20 Rate Blood Pressure 102/61 [Left Brachial artery] Blood Pressure [Left Radial artery] Blood Pressure 143/87 H [Right Brachial artery] Blood Pressure 102/61 [Sitting] O2 Saturation 97 97 12/21/21 12/22/21 12/22/21 20:32 00:09 05:33 Temperature 36.3 C L 36.4 C L 36.4 C L Heart Rate [ 71 Brachial] Heart Rate [ Monitoring electrodes] Heart Rate [ 63 74 Radial] Heart Rate [ Sitting] Respiratory 16 15 18 Rate Blood Pressure [Left Brachial artery] Blood Pressure 146/81 H 131/65 H 141/88 H [Left Radial artery] Blood Pressure [Right Brachial artery] Blood Pressure [Sitting] O2 Saturation 100 95 95 12/22/21 07:40 Temperature 36.3 C L Heart Rate [ Brachial] Heart Rate [ Monitoring electrodes] Heart Rate [ 93 Radial] Heart Rate [ Sitting] Respiratory 20 Rate Blood Pressure [Left Brachial artery] Blood Pressure 128/96 H [Left Radial artery] Blood Pressure [Right Brachial artery] Blood Pressure [Sitting] O2 Saturation 97 Oxygen O2 Source Room air I&O (Last 24 Hrs): Intake and Output Totals x24h 12/20/21 12/21/21 12/22/21 23:59 23:59 23:59 Intake Total 3465.000 3609.174 410.3 Output Total 0 1 500 Balance 3465.000 3608.174 -89.7 General: Alert, Oriented x3, Cooperative, No acute distress HEENT: Atraumatic Neck: Supple Lymphatic: no adenopathy Neuro: Alert, Non Focal, Oriented Times 3 Cardiovascular: Regular rate, Normal S1, Normal S2 Respiratory: Chest non-tender, No respiratory distress, Breath sounds nml Abdomen: Normal bowel sounds, Soft, No tenderness Extremities: Normal pulses - Results Results: Laboratory Results WBC 5.4 x10^3/uL (4.8-10.8) 12/22/21 04:08 RBC 3.66 10^6/uL (4.20-5.40) L 12/22/21 04:08 Hgb 11.0 g/dL (12.0-16.0) L 12/22/21 04:08 Hct 33.5 % (37.0-47.0) L 12/22/21 04:08 MCV 91.5 fL (81.0-99.0) 12/22/21 04:08 MCH 30.1 pg (27.0-31.0) 12/22/21 04:08 MCHC 32.8 g/dL (32.0-36.0) 12/22/21 04:08 RDW 15.8 % (12.0-15.0) H 12/22/21 04:08 Plt Count 253 10^3/uL (130-450) 12/22/21 04:08 MPV 11.9 fL (7.9-10.8) H 12/22/21 04:08 Neut # (Auto) 3.1 10^3/uL (1.5-6.6) 12/22/21 04:08 Lymph # (Auto) 1.0 10^3/uL (1.5-3.5) L 12/22/21 04:08 Humphreys # (Auto) 0.8 10^3/uL (0.0-1.0) 12/22/21 04:08 Eos # (Auto) 0.5 10^3/uL (0.0-0.7) 12/22/21 04:08 Baso # (Auto) 0.0 10^3/uL (0.0-0.1) 12/22/21 04:08 Absolute Nucleated RBC 0.00 x10^3/uL 12/22/21 04:08 Total Counted 100 12/18/21 12:32 Band Neuts % (Manual) 8 % (0-10) 12/18/21 12:32 Abnorm Lymph % (Manual) 0 % 12/18/21 12:32 Nucleated RBC % 0.0 /100WBC 12/22/21 04:08 Neutrophils # (Manual) 13.4 10^3/uL (1.5-6.6) H 12/18/21 12:32 Lymphocytes # (Manual) 1.5 10^3/uL (1.5-3.5) 12/18/21 12:32 Monocytes # (Manual) 2.0 10^3/uL (0.0-1.0) H 12/18/21 12:32 Eosinophils # (Manual) 0.0 10^3/uL (0-0.7) 12/18/21 12:32 Basophils # (Manual) 0.0 10^3/uL (0-0.1) 12/18/21 12:32 Differential Comment MANUAL DIFFERENTIAL 12/18/21 12:32 RBC Morph Micro Appear 1+ HYPOCHROMASIA (NORMAL) 12/18/21 12:32 Sodium 137 mmol/L (135-145) 12/22/21 04:08 Potassium 3.8 mmol/L (3.5-5.0) 12/22/21 04:08 Chloride 113 mmol/L (101-111) H 12/22/21 04:08 Carbon Dioxide 17 mmol/L (21-32) L 12/22/21 04:08 Anion Gap 7.0 (6-13) 12/22/21 04:08 BUN 10 mg/dL (6-20) 12/22/21 04:08 Creatinine 0.9 mg/dL (0.4-1.0) 12/22/21 04:08 Estimated GFR (MDRD) 60 (>89) L 12/22/21 04:08 Glucose 142 mg/dL (70-100) H 12/22/21 04:08 Estimat Average Glucose 134 mg/dL (70-100) H 12/18/21 12:32 Hemoglobin A1c % 6.3 % (4.27-6.07) H 12/18/21 12:32 Lactic Acid 1.5 mmol/L (0.5-2.2) 12/18/21 17:01 Calcium 8.3 mg/dL (8.5-10.3) L 12/22/21 04:08 Phosphorus 2.3 mg/dL (2.5-4.6) L 12/22/21 04:08 Magnesium 1.8 mg/dL (1.7-2.8) 12/22/21 04:08 Total Bilirubin 0.7 mg/dL (0.2-1.0) 12/18/21 12:32 AST 18 IU/L (10-42) 12/18/21 12:32 ALT 11 IU/L (10-60) 12/18/21 12:32 Alkaline Phosphatase 64 IU/L (42-121) 12/18/21 12:32 Total Protein 6.1 g/dL (6.7-8.2) L 12/18/21 12:32 Albumin 2.8 g/dL (3.2-5.5) L 12/18/21 12:32 Globulin 3.3 g/dL (2.1-4.2) 12/18/21 12:32 Albumin/Globulin Ratio 0.8 (1.0-2.2) L 12/18/21 12:32 Prealbumin 7 mg/dL (18-45) L 12/22/21 04:08 Triglycerides 193 mg/dL (-149) H 12/22/21 04:08 Lipase 29 U/L (22-51) 12/18/21 12:32 Urine Color YELLOW 12/18/21 13:24 Urine Clarity SL. CLOUDY (CLEAR) 12/18/21 13:24 Urine pH 6.0 PH (5.0-7.5) 12/18/21 13:24 Ur Specific [place] 1.025 (1.002-1.030) 12/18/21 13:24 Urine Protein TRACE mg/dL (NEGATIVE) 12/18/21 13:24 Urine Glucose (UA) NEGATIVE mg/dL (NEGATIVE) 12/18/21 13:24 Urine Ketones NEGATIVE mg/dL (NEGATIVE) 12/18/21 13:24 Urine Occult Blood MODERATE (NEGATIVE) H 12/18/21 13:24 Urine Nitrite POSITIVE (NEGATIVE) H 12/18/21 13:24 Urine Bilirubin NEGATIVE (NEGATIVE) 12/18/21 13:24 Urine Urobilinogen 0.2 (NORMAL) E.U./dL (NORMAL) 12/18/21 13:24 Ur Leukocyte Esterase NEGATIVE (NEGATIVE) 12/18/21 13:24 Urine RBC 11-25 /HPF (0-5) H 12/18/21 13:24 Urine WBC 6-10 /HPF (0-5) H 12/18/21 13:24 Ur Squamous Epith Cells FEW Squamous (<= Few) 12/18/21 13:24 Urine Bacteria Moderate /HPF (None Seen) H 12/18/21 13:24 Ur Microscopic Review INDICATED 12/18/21 13:24 Urine Culture Comments INDICATED 12/18/21 13:24 Nasal Adenovirus (PCR) NOT DETECTED 12/18/21 16:44 Nasal B. parapertussis DNA (PCR) NOT DETECTED 12/18/21 16:44 Nasal Coronavir 229E PCR NOT DETECTED 12/18/21 16:44 Nasal Coronavir HKU1 PCR NOT DETECTED 12/18/21 16:44 Nasal Coronavir NL63 PCR NOT DETECTED 12/18/21 16:44 Nasal Coronavir OC43 PCR NOT DETECTED 12/18/21 16:44 Nasal Enterovir/Rhinovir PCR NOT DETECTED 12/18/21 16:44 Nasal Influenza B PCR NOT DETECTED 12/18/21 16:44 Nasal Influenza A PCR NOT DETECTED 12/18/21 16:44 Nasal Parainfluen 1 PCR NOT DETECTED 12/18/21 16:44 Nasal Parainfluen 2 PCR NOT DETECTED 12/18/21 16:44 Nasal Parainfluen 3 PCR NOT DETECTED 12/18/21 16:44 Nasal Parainfluen 4 PCR NOT DETECTED 12/18/21 16:44 Nasal RSV (PCR) NOT DETECTED 12/18/21 16:44 Nasal B.pertussis DNA PCR NOT DETECTED 12/18/21 16:44 Nasal C.pneumoniae (PCR) NOT DETECTED 12/18/21 16:44 [place] Human Metapneumo PCR NOT DETECTED 12/18/21 16:44 Nasal M.pneumoniae (PCR) NOT DETECTED 12/18/21 16:44 Nasal SARS-CoV-2 (PCR) NOT DETECTED 12/18/21 16:44 Stl C. diff Tox B Gene NEGATIVE (NEGATIVE) 12/19/21 10:20 Sepsis Event Note (H) - Evaluation Current Stage of Sepsis: Sepsis Possible source of Sepsis: positive: Genitourinary - Sepsis Criteria Sepsis Criteria: Recorded Respiratory Rate greater than 20, WBC count greater than 12,000 or less than 4000 ABX Reporting Has patient been on IV antibiotics over the past 48 hours?: Yes Current Medications - Current Medications Current Medications: Active Medications Acetaminophen (Acetaminophen 325 Mg Tablet) 650 mg PO Q4HR PRN PRN Reason: Pain 1 to 4 Last Admin: 12/21/21 17:23 Dose: 650 mg Apixaban (Apixaban 5 Mg Tablet) 5 mg PO BID [facility] Last Admin: 12/22/21 08:25 Dose: 5 mg Aspirin (Aspirin Ec 81 Mg Tablet) 81 mg PO DAILY [facility] Last Admin: 12/22/21 08:26 Dose: 81 mg Atorvastatin Calcium (Atorvastatin 10 Mg Tablet) 20 mg PO QPM [facility] Last Admin: 12/21/21 20:25 Dose: 20 mg Calcium Carbonate/Glycine (Calcium Carbonate Chew 500 Mg Tablet) 500 mg PO TID PRN PRN Reason: Heartburn Last Admin: 12/21/21 20:32 Dose: 500 mg Hydralazine HCl (Hydralazine Inj 20 Mg/Ml Vial) 10 mg IVP QID PRN PRN Reason: Hypertensive Emergency Multivitamins 10 ml/ TRACE ELEMENTS 1 ml/ Amino Acids/Electrolytes/Dextrose 2,011 mls @ 83 mls/hr IV Q24H [facility]; Protocol Last Infusion: 12/21/21 23:02 Dose: 83 mls/hr Fat Emulsion Intravenous (Intralipid 20%) 250 mls @ 21 mls/hr IV 1900 [facility] Last Infusion: 12/22/21 07:31 Dose: Infused Cefazolin Sodium 1 gm/ Sodium (Chloride) 100 mls @ 200 mls/hr IV Q8H [facility] Last Admin: 12/22/21 11:00 Dose: 200 mls/hr Loperamide HCl (Loperamide 2 Mg Capsule) 2 mg PO QID PRN PRN Reason: Diarrhea Magnesium Oxide (Magnesium Oxide 400 Mg Tablet) 400 mg PO DAILYWM [facility] Last Admin: 12/22/21 08:25 Dose: 400 mg Mineral Oil (Min Oil/Dimethicon/Coconut Oil 92 Gm Tube) 1 applic TOP PRN PRN PRN Reason: Skin Care Last Admin: 12/19/21 22:12 Dose: 1 applic Ondansetron HCl (Ondansetron 4 Mg/2 Ml Vial) 4 mg IVP Q4HR PRN PRN Reason: Nausea / Vomiting Last Admin: 12/22/21 08:21 Dose: 4 mg Pantoprazole Sodium (Pantoprazole 40 Mg Tablet) 40 mg PO QDAC [facility] Last Admin: 12/22/21 05:58 Dose: 40 mg Prochlorperazine Edisylate (Prochlorperazine 10 Mg/2 Ml Vial) 10 mg IVP Q6HR PRN PRN Reason: Nausea / Vomiting Last Admin: 12/21/21 18:59 Dose: 10 mg Saccharomyces Boulardii (Saccharomyces Boulardii 250 Mg Capsule) 250 mg PO BIDWM [facility] Last Admin: 12/22/21 08:25 Dose: 250 mg Sodium Chloride (Sodium Chloride Flush 0.9% 10 Ml Syringe) 10 ml IVP PRN PRN PRN Reason: NEEDED PER PROVIDER ORDERS Last Admin: 12/22/21 08:21 Dose: 10 ml Sodium Chloride (Sodium Chloride Flush 0.9% 10 Ml Syringe) 10 ml IVP 0100,0900,1700 [facility] Last Admin: 12/22/21 08:26 Dose: Not Given Sodium Phosphate (Neutra-Phos 250 Mg Tablet) 250 mg PO TIDWM [facility] Last Admin: 12/22/21 11:01 Dose: 250 mg Tizanidine HCl (Tizanidine 4 Mg Tablet) 4 mg PO TID PRN PRN Reason: Spasms Last Admin: 12/22/21 10:45 Dose: 4 mg Lovastatin 40 mg PO DAILY 06/08/14 Furosemide [Lasix] 80 mg PO BID 12/19/21 Omeprazole Magnesium 40 mg PO BID 12/19/21 Potassium Chloride [Klor-Con 10] 20 meq PO BID 12/19/21 Rivaroxaban [Xarelto] 15 mg PO DAILY 12/19/21 carvediloL [Coreg] mg PO BID 12/19/21 tiZANidine [Zanaflex] 4 mg PO Q8H PRN 12/19/21 traMADol [Ultram] 50 - 100 mg PO Q6H PRN 12/19/21
[2021-12-22] MEDS: ceFAZolin 1 GM in SODIUM CHLORIDE 0.9% MINIBAG 100 ML IV SCH ×2 (11:00→18:35)
[2021-12-22] MEDS: NEUTRA-PHOS 250 MG TABLET PO SCH ×2 (11:01→17:19)
[2021-12-22] MEDS: ACETAMINOPHEN 325 MG TABLET PO PRN ×2 (12:25→17:18)
--- NOTE | 2021-12-22 15:03 | CONSULTATION NOTE ---
Palliative Care Follow Up - Referral Referring Provider: Shea Blake MD Time of Visit: Referral setting: Hospitalized patient Referral Reason: FTT/Goals of Care - Information Sources Records reviewed: Previous records reviewed History/Review of Systems obtained from: Patient Exam limitations: Clinical condition (patient still fatigue; but feels clearer today) - History of Present Illness Update Brief HPI Update: Please see HPI 12/21. This is a jennifer 81-year-old woman who continues to be treated for her polynephritis, still has persistent nausea, most likely related to antibiotics at this point. She has many medication intolerances particularly to antibiotics. She reports that she does understand she needs to complete these though. She has continued to be at high risk for ongoing malnutrition and metabolic abnormalities related to her poor intake. She is quite weak. She is quite distressed as far as her decline in independence and functional status. She reports no further diarrhea today, though continues with discomfort. She reports her discomfort is related to her long-term back pain, she has been on Zanaflex for about a year and a half with good control. She had previously also been on tramadol and acetaminophen.She is hesitant to restart the tramadol secondary to her current nausea. Meeting with patient to follow-up on POLST and advanced care planning. Patient understanding she needs to transition to rehab at least for 1 or 2 weeks until she gets her strength back. Her goals is to return to some level of independence. 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 Social History - Living Situation Living arrangement: At home Living Situation: With spouse/s.o. 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 She reports to live in a 1 level home, with grab bars. Her is currently completed treatment for lung cancer, they have been 60 years. They have lived on [facility] for 2 years. She has been in rehab before, when she broke her ankle and sprained her other ankle, she does understand that this is only a temporary situation. Her goals are to return to independence though she does understand they most likely will need some help. She would also benefit from home health on transition back home Medications/Allergies - Medications Active Medication List: Active Medications Acetaminophen (Acetaminophen 325 Mg Tablet) 650 mg PO Q4HR PRN PRN Reason: Pain 1 to 4 Last Admin: 12/22/21 12:25 Dose: 650 mg Apixaban (Apixaban 5 Mg Tablet) 5 mg PO BID [facility] Last Admin: 12/22/21 08:25 Dose: 5 mg Aspirin (Aspirin Ec 81 Mg Tablet) 81 mg PO DAILY [facility] Last Admin: 12/22/21 08:26 Dose: 81 mg Atorvastatin Calcium (Atorvastatin 10 Mg Tablet) 20 mg PO QPM [facility] Last Admin: 12/21/21 20:25 Dose: 20 mg Calcium Carbonate/Glycine (Calcium Carbonate Chew 500 Mg Tablet) 500 mg PO TID PRN PRN Reason: Heartburn Last Admin: 12/21/21 20:32 Dose: 500 mg Hydralazine HCl (Hydralazine Inj 20 Mg/Ml Vial) 10 mg IVP QID PRN PRN Reason: Hypertensive Emergency Multivitamins 10 ml/ TRACE ELEMENTS 1 ml/ Amino Acids/Electrolytes/Dextrose 2,011 mls @ 83 mls/hr IV Q24H [facility]; Protocol Last Infusion: 12/21/21 23:02 Dose: 83 mls/hr Fat Emulsion Intravenous (Intralipid 20%) 250 mls @ 21 mls/hr IV 1900 [facility] Last Infusion: 12/22/21 07:31 Dose: Infused Cefazolin Sodium 1 gm/ Sodium (Chloride) 100 mls @ 200 mls/hr IV Q8H [facility] Last Infusion: 12/22/21 12:21 Dose: Infused Loperamide HCl (Loperamide 2 Mg Capsule) 2 mg PO QID PRN PRN Reason: Diarrhea Magnesium Oxide (Magnesium Oxide 400 Mg Tablet) 400 mg PO DAILYWM [facility] Last Admin: 12/22/21 08:25 Dose: 400 mg Mineral Oil (Min Oil/Dimethicon/Coconut Oil 92 Gm Tube) 1 applic TOP PRN PRN PRN Reason: Skin Care Last Admin: 12/19/21 22:12 Dose: 1 applic Ondansetron HCl (Ondansetron 4 Mg/2 Ml Vial) 4 mg IVP Q4HR PRN PRN Reason: Nausea / Vomiting Last Admin: 12/22/21 08:21 Dose: 4 mg Pantoprazole Sodium (Pantoprazole 40 Mg Tablet) 40 mg PO QDAC [facility] Last Admin: 12/22/21 05:58 Dose: 40 mg Prochlorperazine Edisylate (Prochlorperazine 10 Mg/2 Ml Vial) 10 mg IVP Q6HR PRN PRN Reason: Nausea / Vomiting Last Admin: 12/21/21 18:59 Dose: 10 mg Saccharomyces Boulardii (Saccharomyces Boulardii 250 Mg Capsule) 250 mg PO BIDWM [facility] Last Admin: 12/22/21 08:25 Dose: 250 mg Sodium Chloride (Sodium Chloride Flush 0.9% 10 Ml Syringe) 10 ml IVP PRN PRN PRN Reason: NEEDED PER PROVIDER ORDERS Last Admin: 12/22/21 08:21 Dose: 10 ml Sodium Chloride (Sodium Chloride Flush 0.9% 10 Ml Syringe) 10 ml IVP 0100,0900,1700 [facility] Last Admin: 12/22/21 08:26 Dose: Not Given Sodium Phosphate (Neutra-Phos 250 Mg Tablet) 250 mg PO TIDWM [facility] Last Admin: 12/22/21 11:01 Dose: 250 mg Tizanidine HCl (Tizanidine 4 Mg Tablet) 4 mg PO TID PRN PRN Reason: Spasms Last Admin: 12/22/21 10:45 Dose: 4 mg Lovastatin 40 mg PO DAILY 06/08/14 Furosemide [Lasix] 80 mg PO BID 12/19/21 Omeprazole Magnesium 40 mg PO BID 12/19/21 Potassium Chloride [Klor-Con 10] 20 meq PO BID 12/19/21 Rivaroxaban [Xarelto] 15 mg PO DAILY 12/19/21 carvediloL [Coreg] mg PO BID 12/19/21 tiZANidine [Zanaflex] 4 mg PO Q8H PRN 12/19/21 traMADol [Ultram] 50 - 100 mg PO Q6H PRN 12/19/21 - Allergies Allergies/Adverse Reactions: Allergies Allergy/AdvReac Type Severity Reaction Status Date / Time BETY Inhibitors Allergy Respiratory Verified 12/18/21 13:12 levofloxacin [From Levaquin] Allergy Rash Verified 12/18/21 13:12 Sulfa (Sulfonamide Allergy Hives Verified 12/18/21 13:12 Antibiotics) Review of Systems - Constitutional Constitutional: reports: Fatigue, Weakness, Weight loss (on clear liquids). de nies: Fever, Chills - Ears, Nose & Throat Ears, Nose & Throat: reports: Dry mouth - Cardiovascular Cardiovascular: reports: Decr. exercise tolerance - Respiratory Respiratory: denies: SOB at rest - Gastrointestinal Gastrointestinal: reports: Diarrhea (no diarrhea today thus far), Nausea, Poor appetite - Genitourinary Genitourinary: reports: Incontinence - Musculoskeletal Musculoskeletal: reports: Stiffness, Limited range of motion (left side), Muscle weakness, Assistive devices - Integumentary Integumentary: reports: Dryness - Neurological Neurological: reports: General weakness, Memory problems (feels clearer today but not back to baseline) - Psychiatric Psychiatric: reports: Depression, Anxiety - Endocrine Endocrine: reports: Diabetes type 2 - Hematologic/Lymphatic Hematologic/Lymph: reports: Anemia (11.1), Recurrent infections (treated for pyelnephritis) - All Other Systems All Other Systems: reports: Reviewed and negative Physical Exam - Vital Signs Vital Signs: Vital Signs x48h Temp Pulse Resp BP Pulse Ox 12/22/21 11:25 36.5 C 95 20 137/69 H 94 12/22/21 07:40 36.3 C L 93 20 128/96 H 97 - Physical Exam General Appearance: positive: No acute distress, Alert Eyes Bilateral: positive: Normal inspection Neck: positive: Trachea midline Respiratory: positive: No respiratory distress Abdomen: positive: Soft, Tenderness Skin: positive: Pallor Extremities: positive: No pedal edema Neurologic/Psychiatric: positive: Mood/affect nml, Flat affect Palliative Care - POLST Patient has POLST: Yes POLST Status: DNR, Selective Treatment (completed new form) Pain: Pain worsening, Location (lower back; reports spasms worsened with bedbound status; does get some relief with zanaflex; encouraged to use apap more frequently; was using tramadol bid previously declined for now) Tiredness/Fatigue: Severe (7-10) Drowsiness/Sedation: Mild (1-3) Nausea: Moderate (4-6) Anorexia: Moderate (4-6) Dyspnea: Mild (1-3) Depression: Moderate (4-6) Anxiety: Moderate (4-6) Feelings of wellbeing/Perceived Quality of Life: Poor, Improved Sleep: Sleeps poorly Performance Status: Reports is already improving as far as her functional status, able to ambulate with walker to commode, is hoping to be able to independently toilet by time she discharges home. - Palliative Care Discussion: Discussion centered on patient's loss of independence, patient does have some persistent depressive feelings we did discuss an antidepressant, she remains quite suspect of this given her experience as a nurse. She is quite clear about do not attempt resuscitation, we discussed at length her other goals. At this point in time is to focus on quality of life issues, treat reversible conditions, she is like to regain her independence and end-of-life she does not perceive herself having support she would need to transition for end-of-life care at home. She reports she has been speaking with her , it was quite overwhelming as far as the SNF piece. They did locate a SNF that was right across from their nephew, is hoping that might work out, if not here in [place] would be acceptable. Her criteria is of course to have, no Covid, though she does understand that this is not something that they can guarantee ongoing.She is hoping for some improvement in her functional status overall, and looking forward to doing more long-term planning when she is home and more stable. We discussed the role of palliative care, if she goes to [facility], palliative care can follow, if not need to notify me on discharge. I did receive outpatient care referral from her PCP. POLST was completed with DN AR/DNI and selective treatment. This was signed by patient, copy given to her as well as copy to GRAINER MACHINE for transition to SNF Results - Lab Results Lab results reviewed: Yes Fish Bones: 12/22/21 04:08 12/22/21 04:08 Lab and Imaging Results: Lab Results x24hrs 12/22/21 12/22/21 12/21/21 Range/Units 04:08 04:08 15:16 WBC 5.4 (4.8-10.8) x10^3/uL RBC 3.66 L (4.20-5.40) 10^6/uL Hgb 11.0 L (12.0-16.0) g/dL Hct 33.5 L (37.0-47.0) % MCV 91.5 (81.0-99.0) fL MCH 30.1 (27.0-31.0) pg MCHC 32.8 (32.0-36.0) g/dL RDW 15.8 H (12.0-15.0) % Plt Count 253 (130-450) 10^3/uL MPV 11.9 H (7.9-10.8) fL Neut # (Auto) 3.1 (1.5-6.6) 10^3/uL Lymph # (Auto) 1.0 L (1.5-3.5) 10^3/uL [place] # (Auto) 0.8 (0.0-1.0) 10^3/uL Eos # (Auto) 0.5 (0.0-0.7) 10^3/uL Baso # (Auto) 0.0 (0.0-0.1) 10^3/uL Absolute Nucleated RBC 0.00 x10^3/uL Nucleated RBC % 0.0 /100WBC Sodium 137 (135-145) mmol/L Potassium 3.8 (3.5-5.0) mmol/L Chloride 113 H (101-111) mmol/L Carbon Dioxide 17 L (21-32) mmol/L Anion Gap 7.0 (6-13) BUN 10 (6-20) mg/dL Creatinine 0.9 (0.4-1.0) mg/dL Estimated GFR (MDRD) 60 L (>89) Glucose 142 H (70-100) mg/dL Calcium 8.3 L (8.5-10.3) mg/dL Phosphorus 2.3 L (2.5-4.6) mg/dL Magnesium 1.8 1.9 (1.7-2.8) mg/dL Prealbumin 7 L (18-45) mg/dL Triglycerides 193 H ( - 149) mg/dL Impression and Recommendations - Palliative Care Impression: This is an 81-year-old woman this is an 81-year-old woman who presents with a history of CVA and left-sided weakness, she had an acute admit for py elonephritis, continues with persistent nausea and weakness. She is looking at transitioning to SNF to meet her goals have been regaining independence. Palliative care is meeting with patient to establish rapport and complete POLST in the context of advanced care planning today. Recommendations/Counseling Done: 1. Depression. We did discuss patient's persistence feelings of helplessness and hopelessness, my recommendation to consider an antidepressant, she reports t his was 5Recommended previously, she is somewhat suspect of this. I did recommend mirtazapine in the context of helping her with her depression, appetite and sleep. She will consider but has declined at this time. We will continue to monitor. Psychosocial support. 2. Advanced care planning. Patient remains quite frail, with high risk of recurrent difficulties and high symptom burden. We did talk through her goals, and completed a POLST with DN AR/DNI and selective treatments. Form was c ompleted and copy was provided for patient and to G[employer]ACHINE. Have to have outpatient referral for patient, will follow depending on final disposition for SNF 30 minutes with greater than 50% of this done in counseling regarding goals of care, coordination of care with hospitalist team
[2021-12-22] MEDS: PPN (CLINIMIX E 4.25/5) 2,000 ML with MULTIVITAMIN 10 ML, TRACE ELEMENTS 1 ML IV SCH ×3 (19:26)
[2021-12-22] MEDS: FAT EMULSION 20% 250 ML IV SCH (19:26)
[2021-12-22] MEDS: PROCHLORPERAZINE 10 MG/2 ML VIAL IVP PRN (19:31)
[2021-12-22] MEDS: ATORVASTATIN 10 MG TABLET PO SCH (20:37)
[2021-12-23] MEDS: SODIUM CHLORIDE FLUSH 0.9% 10 ML SYRINGE IVP SCH ×2 (00:11→09:21)
[2021-12-23] MEDS: ceFAZolin 1 GM in SODIUM CHLORIDE 0.9% MINIBAG 100 ML IV SCH (02:33)
[2021-12-23] MEDS: tiZANidine 4 MG TABLET PO PRN (03:11)
[2021-12-23] MEDS: ACETAMINOPHEN 325 MG TABLET PO PRN ×2 (03:11→09:21)
[2021-12-23] MEDS: CALCIUM CARBONATE CHEW 500 MG TABLET PO PRN (03:22)
[2021-12-23 05:46] LABS: BASOPHILS % (AUTO) 0.6 %; EOSINOPHILS # (AUTO) 0.4 10^3/uL (0.0-0.7); EOSINOPHILS % (AUTO) 6.6 %; HCT - HEMATOCRIT 31.3 % (37.0-47.0); HGB - HEMOGLOBIN 10.3 g/dL (12.0-16.0); LYMPHOCYTES # (AUTO) 1.2 10^3/uL (1.5-3.5); LYMPHOCYTES % (AUTO) 18.2 %; MEAN CORPUSCULAR HEMOGLOBIN 29.6 pg (27.0-31.0); MEAN CORPUSCULAR HGB CONC 32.9 g/dL (32.0-36.0); MEAN CORPUSCULAR VOLUME 89.9 fL (81.0-99.0); MEAN PLATELET VOLUME 12.1 fL (7.9-10.8); MONOCYTES # (AUTO) 0.9 10^3/uL (0.0-1.0); MONOCYTES % (AUTO) 13.7 %; NEUTROPHILS % (AUTO) 60.4 %; PLT - PLATELET COUNT 189 10^3/uL (130-450); RED BLOOD COUNT 3.48 10^6/uL (4.20-5.40); RED CELL DISTRIBUTION WIDTH 15.6 % (12.0-15.0); WHITE BLOOD COUNT 6.6 x10^3/uL (4.8-10.8)
[2021-12-23 05:54] LABS: CALCIUM 8.6 mg/dL (8.5-10.3); CREATININE 0.8 mg/dL (0.4-1.0); MAGNESIUM 1.8 mg/dL (1.7-2.8); POTASSIUM 3.5 mmol/L (3.5-5.0)
[2021-12-23] MEDS: PANTOPRAZOLE 40 MG TABLET PO SCH (06:13)
[2021-12-23] MEDS: APIXABAN 5 MG TABLET PO SCH (09:21)
[2021-12-23] MEDS: MAGNESIUM OXIDE 400 MG TABLET PO SCH (09:21)
[2021-12-23] MEDS: ASPIRIN EC 81 MG TABLET PO SCH (09:21)
[2021-12-23] MEDS: NEUTRA-PHOS 250 MG TABLET PO SCH ×2 (09:21→11:03)
[2021-12-23] MEDS: SACCHAROMYCES BOULARDII 250 MG CAPSULE PO SCH (09:21)
--- NOTE | 2021-12-23 10:35 | Discharge Plan ---
"Discharge Plan for SNF / [facility] - Discharge Plan And Transition Orders Problem Reviewed?: Yes Disposition: 03 SNF DC/Xfer Condition: Stable Allergies and Adverse Reactions: Allergies Allergy/AdvReac Type Severity Reaction Status Date / Time BETY Inhibitors Allergy Respiratory Verified 12/18/21 13:12 levofloxacin [From Levaquin] Allergy Rash Verified 12/18/21 13:12 Sulfa (Sulfonamide Allergy Hives Verified 12/18/21 13:12 Antibiotics) Health Concerns: pyelonephritis and sepsis, nausea/vomiting/diarrhea, recent stroke, malnutrition, hypokalemia/hypomagnesemia/dehydration. Plan of Treatment: pt's acute sepsis was resolved. Pt were found to have pyelonephritis at the admission. pt is prescribed antibiotics to finish the treatment course. pt's nausea, vomiting and diarrhea are controlled now. pt may resume her home Reglan PRN for nausea and vomiting. pt was found to have severe hypokalemia and hypomagnesemia, and dehydration at the admission. pt's ECHO study show preserved EF and unremarkable. Pt took 80mg Lasix bid at home. We hold your home Lasix at hospital, pt have no respiratory distress and have 100% O2 sat on room air. After discussed with pt about her home Lasix dosage, pt hope to have 20mg bid Lasix with 20meq potassium daily, followup with SNF provider and have blood work in 3-4 days. Resume pt's home Xarelto, statin and add baby aspirin for pt's recent stroke. pt has hx of DVT. resume pt's home PPI. Continue PT/OT in SNF. Pt may continue to have glove cuffer consult in SNF. pt tolerate regular diet at hospital now. Care Goals: Stabilization and improvement of your medical problems Assessment: Discussed the care plan in detail with patient, answered patient's questions. she understood and agreed - SNF / [facility] Transition Orders Admit to (Facility): [facility] Under the care of (Name): Medical Provider of [facility] Discharge Diagnosis: Pyelonephritis, E. coli UTI, Nausea, vomiting and diarrhea, hypokalemia, hypomagnesium, recent stroker, malnutrition, sepsis. hx of DVT on Xarelto Medicare Certification Statement: I certify that [facility] halfway care is medically necessary on a continuing basis for any of the conditions for which she/he is receiving care during hospitalization. Notify PCP of admission and forward orders to primary provider for signature. Weight on admission and: Daily Call PCP immediately if weight increases by: 2 kg Other Notification Orders: Call PCP immediately if patient develops dyspnea, chest pain/tightness or edema. House Bowel Program: Yes Additional Bowel Program Orders: If no BM after 2 days, nurse may give M.O.M. 30ml PO PRN and/or ducolax Supp 1 MA and/or GEORGIE 250mg P.O., and/or senna 1-2 tabs PO. On day 3 nurse may give repeat above order until residents constipation is resolved. Annual Influenza Vaccine (between Jun 24 and January 21): Yes Two-step PPD per [facility] [phone] or approved exception documents: Yes Treatments & Other Orders: pt's acute sepsis was resolved. Pt were found to have pyelonephritis at the admission. pt is prescribed antibiotics to finish the treatment course. pt's nausea, vomiting and diarrhea are controlled now. pt may resume her home Reglan PRN for nausea and vomiting. pt was found to have severe hypokalemia and hypomagnesemia, and dehydration at the admission. pt's ECHO study show preserved EF and unremarkable. Pt took 80mg Lasix bid at home. We hold your home Lasix at hospital, pt have no respiratory distress and have 100% O2 sat on room air. After discussed with pt about her home Lasix dosage, pt hope to have 20mg bid Lasix with 20meq potassium daily, followup with SNF provider and have blood work in 3-4 days to monitor electrolytes. Resume pt's home Xarelto, statin and add baby aspirin for pt's recent stroke. pt has hx of DVT. resume pt's home PPI. Continue PT/OT in SNF. Pt may continue to have glove cuffer consult in SNF. pt tolerate regular diet at hospital now. Medication Orders: PLEASE REFER TO THE DISCHARGE MEDICATION LIST. Insulin Orders?: No - Medications New Prescriptions: cefUROXime axetiL [Ceftin] 500 mg PO BID 8 Days #32 tablet Aspirin EC [Ecotrin] 81 mg PO DAILY #30 tablet Saccharomyces Boulardii [Florastor] 250 mg PO BIDWM 8 Days #16 cap Furosemide [Lasix] 20 mg PO BID #60 tablet Magnesium Oxide [Mag Ox] 400 mg PO DAILYWM #30 tablet Potassium Chloride 20 meq PO DAILY #30 tab - Diet Type: Geriatric Texture: Regular Liquids: Thin May have monthly special meal: Yes - Therapies | Activity Therapy: Evaluation | Treat if indicated: PT, OT Rehabilitation Potential: Maximize functional status Activity: Activity as Tolerated"
[2021-12-23 11:16] LABS: CORONAVIRUS 229E-RESP PCR NOT DETECTED; CORONAVIRUS HKU1-RESP PCR NOT DETECTED; CORONAVIRUS NL63-RESP PCR NOT DETECTED; CORONAVIRUS OC43-RESP PCR NOT DETECTED; HUMAN METAPNEUMOVIRUS NOT DETECTED; INFLUENZA A- RESP PCR PANEL NOT DETECTED; RHINOVIRUS/ENTEROVIRUS NOT DETECTED; SARS-CoV-2 -RESP PCR PANEL NOT DETECTED
[2021-12-23 11:17] LABS: B. PARAPERTUSSIS- RESP PCR PAN NOT DETECTED; B. PERTUSSIS- RESP PCR PANEL NOT DETECTED; C. PNEUMONIAE- RESP PCR PANEL NOT DETECTED; INFLUENZA B - RESP PCR PANEL NOT DETECTED; M. PNEUMONIAE- RESP PCR PANEL NOT DETECTED; PARAINFLUENZA VIRUS 1 NOT DETECTED; PARAINFLUENZA VIRUS 2 NOT DETECTED; PARAINFLUENZA VIRUS 3 NOT DETECTED; PARAINFLUENZA VIRUS 4 NOT DETECTED; RSV- RESP PCR PANEL NOT DETECTED
--- NOTE | 2021-12-23 11:42 | DISCHARGE SUMMARY ---
Discharge Summary Admit Date: 01/15/22 Discharge Date: 12/23/21 Discharging Provider: Marshall Hart Primary Care Provider: Ember Moran Condition at Discharge: Stable Discharge Disposition: DC/Xfer Discharge Facility Name: [facility] - DIAGNOSES Discharge Diagnoses with Status of Each Condition: (1) Pyelonephritis improvement/resolve. CT of abdomen suggest bilateral pyelonephritis. pt was treated with IV antibiotics in the hospital. Pt's nausea, vomiting and diarrhea are resolved. pt tolerated regular diet. pt has no more fever. WBC is at normal arrange. blood culture is Negative for bacteremia. pt is prescribed antibiotics to finish the treatment course. (2) E coli UTI urine culture results shows positive for E. coli which is pansensitive. The blood culture is negative. pt is prescribed antibiotics to finish the treatment course. (3) N/V resolved. nausea, vomiting and diarrhea are resolved. pt tolerated regular diet. (4) Diarrhea resolved. C.diff test was negative. (5) Hypokalemia resolved. (6) Hypomagnesemia resolved. pt is prescribed daily mag, pt may have blood work to check Electrolytes in 3 to 4 days in SNF. (7) Recent stroke Patient has recently stroke. she has mild residual left-sided weakness. pt is prescribed Aspirin, resume home statin. PT and OT had evaluation and treatment for pt, and recommended to SNF. (8)malnutrition pt was consulted with podiatric foot and ankle specialist at hospital. pt had temporary PPN at hospital. Then pt tolerated regular diet on hospital. pt has no more nausea, vomiting or diarrhea. Pt may continue Nutrition consult at SNF (9) Sepsis Resolved. pt has no more fever, WBC is at normal arrange, blood culture is negative. Patient is hemodynamic stable. Patient had elevated WBC, low degree fever, urinalysis showed urinary tract infection, and pyelonephritis as the source. (10)hx of DVT resume home Xarelto, and PPI (11)chronic back pain resume home pain medication. pt report she also had lidocaine patch at home as well. (12)weakness Patient had PT and OT evaluation and treatment in the hospital, patient was recommended to discharge to SNF. patient is discharged to [facility]. discussed with pt about her high dosage of Lasix taken at her home. pt took 80mg bid Lasix at home. pt has ECHO study at hospital which reveal preserved EF and negative valve disease, and normal right heart pressure. pt's Lasix was hold in hospital for 5 days, pt did not develop respiratory distress. pt had 100% O2 sat on room air. pt hope decrease to her home lasix to 20mg bid, 20meq of potassium is prescribed for pt. pt may have blood work to check Electrolytes in 3 to 4 da ys in SNF. - HPI History of Present Illness: This is a 81-year old female with A past medical history significant for hypertension, hyperlipidemia, stroke with residual left-sided weakness who presents to the emergency department complaining of intermittent nausea, vomiting and diarrhea. pt report she had intermittent nausea, vomiting and diarrhea over the past 8 days. pt report she visited her PCP and she was prescribed Zofran. she state her nausea and vomiting was improved after she took Zofran but early today morning, she started again with nausea and vomiting. She states that the nausea has been consistent, but her vomiting and diarrhea has been intermittent. She report she spoke with her PCP again on the Internet today and they referred her to ER for evaluation. Patient denies fever, chill, chest pain, shortness of breath. In ER pt had temperature 37.9, HR 73, RR 18, BP112/110, 96% O2 sat on room air. Routine laboratory test significantly show potassium 2.4, magnesium 0.8, creatinine 1.2, WBC 17, positive UTI. CT of abdomen/pelvis show Small focal area of heterogenic enhancement at bilaterally kidney, finding is nonspecific but raise concern of pyelonephritis. Discussed care goal with patient, patient hope to have DNR - HOSPITAL COURSE Hospital Course: Patient was admitted for nausea, vomiting, diarrhea for 8 days, also for low degree fever. Patient was found to have bilaterally kidney pyelonephritis. Patient was treated with intravenous antibiotics. Patient continue to have nausea. Discharge Coordinator was consult and recommend PPN for patient. After treatment in hospital, patient's nausea and vomiting was controlled, patient tolerated full liquid diet and regular diet. Patient had PT and OT evaluation and treatment, patient was recommended to SNF. workers' compensation hearings officer was consult for discharge planning. Patient was discharged to [facility]. - ALLERGIES Allergies/Adverse Reactions: Allergies Allergy/AdvReac Type Severity Reaction Status Date / Time BETY Inhibitors Allergy Respiratory Verified 12/18/21 13:12 levofloxacin [From Levaquin] Allergy Rash Verified 12/18/21 13:12 Sulfa (Sulfonamide Allergy Hives Verified 12/18/21 13:12 Antibiotics) - MEDICATIONS Home Medications: Ambulatory Orders Medication Instructions Recorded Confirmed Lovastatin 40 mg PO DAILY 06/08/14 12/19/21 Metoclopramide [Reglan] 10 mg PO Q6H PRN #20 tablet 12/05/21 12/19/21 Omeprazole Magnesium 40 mg PO BID 12/19/21 12/19/21 Rivaroxaban [Xarelto] 15 mg PO DAILY 12/19/21 12/19/21 carvediloL [Coreg] mg PO BID 12/19/21 tiZANidine [Zanaflex] 4 mg PO Q8H PRN 12/19/21 12/19/21 Aspirin EC [Ecotrin] 81 mg PO DAILY #30 tablet 12/23/21 Furosemide [Lasix] 20 mg PO BID #60 tablet 12/23/21 Magnesium Oxide [Mag Ox] 400 mg PO DAILYWM #30 tablet 12/23/21 Potassium Chloride 20 meq PO DAILY #30 tab 12/23/21 Saccharomyces Boulardii [Florastor] 250 mg PO BIDWM 8 Days #16 cap 12/23/21 cefUROXime axetiL [Ceftin] 500 mg PO BID 8 Days #32 tablet 12/23/21 traMADol [Ultram] 50 mg PO Q6H PRN #15 tab 12/23/21 - PHYSICAL EXAM AT DISCHARGE General Appearance: positive: No acute distress, Alert. negative: Lethargic Eyes Bilateral: positive: Normal inspection, No lid inflammation ENT: positive: ENT inspection nml, No signs of dehydration. negative: Purulent nasal drainage Neck: positive: Nml inspection, Trachea midline. negative: Tracheal deviation Respiratory: positive: Chest non-tender, No respiratory distress. negative: Wheezes Cardiovascular: positive: Regular rate & rhythm. negative: Tachycardia, Br adycardia, Systolic murmur Peripheral Pulses: positive: 2+ Abdomen: positive: Non-tender, Nml bowel sounds, No distention. negative: Tenderness Back: positive: Nml inspection Skin: positive: Color nml, Warm, Dry. negative: Cyanosis Extremities: positive: Non-tender, Full ROM, Nml appearance Neurologic/Psychiatric: positive: Oriented x3, Motor nml, Sensation nml. negative: Weakness, Sensory loss, Facial droop, Slurred/abnml speech, Depressed mood/affect - LABS Result Diagrams: 12/23/21 05:27 12/23/21 05:27 - SEPSIS Current Stage of Sepsis: Sepsis Possible source of Sepsis: Genitourinary Sepsis Criteria: Recorded Respiratory Rate greater than 20, WBC count greater than 12,000 or less than 4000 - FOLLOW UP Follow Up: pt's acute sepsis was resolved. Pt were found to have pyelonephritis at the admission. pt is prescribed antibiotics to finish the treatment course. pt's nausea, vomiting and diarrhea are controlled now. pt may resume her home Reglan PRN for nausea and vomiting. pt was found to have severe hypokalemia and hypomagnesemia, and dehydration at the admission. pt's ECHO study show preserved EF and unremarkable. Pt took 80mg Lasix bid at home. We hold your home Lasix at hospital, pt have no respiratory distress and have 100% O2 sat on room air. After discussed with pt about her home Lasix dosage, pt hope to have 20mg bid Lasix with 20meq potassium daily, followup with SNF provider and have blood work in 3-4 days to check electrolyte. Resume pt's home statin and add baby aspirin for pt's recent stroke. pt has hx of DVT, resume her home Xarelto. resume pt's home PPI. Continue PT/OT in SNF. Pt may continue to have podiatric foot and ankle specialist consult in SNF. pt tolerate regular diet at hospital. - TIME SPENT Time Spent in Discharge (Minutes): 30
[2021-12-23 12:46] VITALS: BP 121/66
[2021-12-23] MEDS ORDERED: LIDOCAINE PATCH 5% TOP PRN (12:55)
== END 2021-12-23 13:00 | DRG 871 ==
LOC: ED 11:47 → MS2 17:00
PROVIDERS: ADMIT Nurse Practitioner Gerontology; ATTEND Nurse Practitioner Gerontology
DX: A41.51 Sepsis due to Escherichia coli [E. coli] (principal); N39.0 Urinary tract infection, site not specified; E43 Unspecified severe protein-calorie malnutrition; N12 Tubulo-interstitial nephritis, not specified as acute or chronic; I69.354 Hemiplegia and hemiparesis following cerebral infarction affecting left non-dominant side; I10 Essential (primary) hypertension; E78.00 Pure hypercholesterolemia, unspecified; I25.10 Atherosclerotic heart disease of native coronary artery without angina pectoris; I50.30 Unspecified diastolic (congestive) heart failure; K52.9 Noninfective gastroenteritis and colitis, unspecified; E87.6 Hypokalemia; E83.42 Hypomagnesemia; R94.31 Abnormal electrocardiogram [ECG] [EKG]; Z86.718 Personal history of other venous thrombosis and embolism; Z79.01 Long term (current) use of anticoagulants; G89.29 Other chronic pain; M54.9 Dorsalgia, unspecified; R53.1 Weakness; E78.5 Hyperlipidemia, unspecified; Z66 Do not resuscitate; E86.0 Dehydration; E11.9 Type 2 diabetes mellitus without complications; F32.A Depression, unspecified; I11.0 Hypertensive heart disease with heart failure; K21.9 Gastro-esophageal reflux disease without esophagitis; Z51.5 Encounter for palliative care; Z68.24 Body mass index [BMI] 24.0-24.9, adult; Z20.822 Contact with and (suspected) exposure to COVID-19
CPT/HCPCS: 36415; 70450; 74177; 80048; 80053; 81001; 83036; 83605; 83690; 83735; 84100; 84132; 84134; 84478; 85025; 87040; 87086; 87181; 87493; 87631; 92610; 93005; 93306; 96365; 96368; 97116; 97162; 97165; 97530; 99222; 99232; 99284; 99285; A6250; A9270; J3490; J7040; Q9967; 0202U; 81003; 81599; 87045; 87046; 87177; 87209

== ENCOUNTER 2022-09-17 02:24 | Outpatient (CLI) | payer MEDICARE, OTHER | END 2022-09-17 23:59 | disposition critical access hospital (66) | LOC: EMS 02:24 | DX: R06.02 Shortness of breath (principal); R68.83 Chills (without fever); F41.9 Anxiety disorder, unspecified | CPT/HCPCS: A0425; A0427 ==

== ENCOUNTER 2022-09-17 02:50 | Inpatient (IN) | payer MEDICARE, OTHER ==
[2022-09-17 03:18] LABS: ABG PCO2 28 mmHg (34-45); ABG PH 7.37 (7.35-7.45)
[2022-09-17 03:19] LABS: ABG BASE EXCESS -8.4 mmol/L (-2.0-3.0); ABG HCO3 15.5 mmol/L (22.0-26.0); ABG MODE OF VENTILATION SYNCHRONOUS/TIMES; ABG OXYGEN SATURATION 94 % (94-98); ABG PO2 76 mmHg (80-100); ABG TCO2 16.4 MMOL/L (21.0-29.0)
[2022-09-17 03:22] LABS: BASOPHILS % (AUTO) 0.3 %; EOSINOPHILS # (AUTO) 0.1 10^3/uL (0.0-0.7); EOSINOPHILS % (AUTO) 0.9 %; HCT - HEMATOCRIT 35.7 % (37.0-47.0); HGB - HEMOGLOBIN 11.2 g/dL (12.0-16.0); LYMPHOCYTES # (AUTO) 0.8 10^3/uL (1.5-3.5); LYMPHOCYTES % (AUTO) 13.7 %; MEAN CORPUSCULAR HEMOGLOBIN 28.9 pg (27.0-31.0); MEAN CORPUSCULAR HGB CONC 31.4 g/dL (32.0-36.0); MEAN CORPUSCULAR VOLUME 92.2 fL (81.0-99.0); MEAN PLATELET VOLUME 11.2 fL (7.9-10.8); MONOCYTES # (AUTO) 0.2 10^3/uL (0.0-1.0); MONOCYTES % (AUTO) 3.3 %; NEUTROPHILS # (AUTO) 4.7 10^3/uL (1.5-6.6); NEUTROPHILS % (AUTO) 81.6 %; PLT - PLATELET COUNT 296 10^3/uL (130-450); RED BLOOD COUNT 3.87 10^6/uL (4.20-5.40); RED CELL DISTRIBUTION WIDTH 15.6 % (12.0-15.0); WHITE BLOOD COUNT 5.8 x10^3/uL (4.8-10.8)
[2022-09-17] MEDS ORDERED: FUROSEMIDE 40 MG/4 ML VIAL IVP STA ×2 (03:25→04:37)
[2022-09-17 03:31] LABS: ALBUMIN 3.7 g/dL (3.2-5.5); ALBUMIN/GLOBULIN RATIO 1.2 (1.0-2.2); BILIRUBIN,TOTAL 0.6 mg/dL (0.2-1.0); CALCIUM 10.3 mg/dL (8.5-10.3); CREATININE 1.6 mg/dL (0.4-1.0); POTASSIUM 4.1 mmol/L (3.5-5.0); TOTAL PROTEIN 6.9 g/dL (6.7-8.2)
[2022-09-17] MEDS ORDERED: SODIUM CHLORIDE 0.9% 500 ML IV STA (03:42)
--- NOTE | 2022-09-17 03:48 | ED Physician Documentation ---
PD HPI DYSPNEA - Stated complaint Stated Complaint: SOA - Chief complaint Chief Complaint: Resp - History obtained from History obtained from: Patient, EMS - Additional information Additional information: Patient is an 81-year-old female with a history of hypertension, prior stroke and congestive heart failure presenting for evaluation of shortness of breath that woke her up from her sleep. She has had associated chills this evening.She has had a runny nose for several weeks which she states is chronic. She reports feeling okay earlier today but woke up in her sleep having shortness of breath. EMS noted that she Had a room air saturations in the 60s which did not significantly improved with a nonrebreather. She was briefly placed on CPAP. They reported she appeared anxious. As her anxiety decreased, Her breathing became less laborous and they removed the CPAP. Patient denies being recently ill with a fever, cough. She denies chest pain. She is on Xarelto.She has chronic low back pain which is unchanged. Denies of vomiting, diarrhea or abdominal pain.She has been compliant with her Lasix. Her PCP decreased her dose from 80 mg twice daily to 40 twice daily A few months ago. Review of Systems Constitutional: reports: Chills. denies: Fever Nose: reports: Rhinorrhea / runny nose Cardiac: denies: Chest pain / pressure Respiratory: reports: Dyspnea, Cough GI: denies: Abdominal Pain : denies: Dysuria Musculoskeletal: reports: Back pain Neurologic: denies: Headache PD PAST MEDICAL HISTORY - Present Medications Home Medications: Ambulatory Orders Medication Instructions Recorded Confirmed Alprazolam [Xanax] 1 tab PO QPM PRN 09/17/22 09/17/22 Aspirin EC [Ecotrin] 81 mg PO DAILY 09/17/22 09/17/22 Carvedilol [Coreg] 12.5 mg PO BID 09/17/22 09/17/22 Diclofenac Sodium 1% Gel [Voltaren 1 applic TOP QID PRN 09/17/22 09/17/22 Gel] Estrogens, Conjugated Cream 1 applic TOP DAILY 09/17/22 09/17/22 [Premarin Cream] Famotidine [Pepcid] 20 mg PO BID 09/17/22 09/17/22 Furosemide [Lasix] 40 mg PO BID 09/17/22 09/17/22 Lidocaine Patch 5% [Lidoderm Patch] 1 - 2 patch TOP DAILY 09/17/22 09/17/22 Lovastatin 40 mg PO QPM 09/17/22 09/17/22 Omeprazole 40 mg PO BID 09/17/22 09/17/22 Ondansetron Odt [Zofran Odt] 4 mg PO Q8HR PRN 09/17/22 09/17/22 Potassium Chloride 2 tab PO BID 09/17/22 09/17/22 Rivaroxaban [Xarelto] 1 tab PO QPM 09/17/22 09/17/22 Tizanidine HCl 4 mg PO QPM 09/17/22 09/17/22 Tramadol HCl [Ultram] 1 - 2 tab PO Q6HR PRN 09/17/22 09/17/22 predniSONE [Prednisone] 2.5 mg PO DAILY 09/17/22 09/17/22 - Allergies Allergies/Adverse Reactions: Allergies Allergy/AdvReac Type Severity Reaction Status Date / Time BETY Inhibitors Allergy Edema Unverified 09/17/22 05:07 latex Allergy Rash Unverified 09/17/22 05:07 PD ED PE NORMAL - General General: Alert and oriented X 3, Other (Mild distress, pale appearing) - HEENT HEENT: Atraumatic, Moist mucous membranes, Pharynx benign - Neck Neck: Supple, no meningeal sign - Cardiac Cardiac: RRR, Strong equal pulses - Respiratory Respiratory: No respiratory distress, Other (Diminished breath sounds) - Abdomen Abdomen: Soft, Non tender - Derm Derm: Warm and dry - Extremities Extremities: No calf tenderness / cord. No: No edema (Symmetric edema bilaterally) - Neuro Neuro: Normal speech Results - Vitals Vitals: Vital Signs - 24 hr 09/17/22 09/17/22 09/17/22 03:00 04:05 04:08 Temperature 37.3 C Heart Rate 88 84 86 Respiratory 33 H 26 H 27 H Rate Blood Pressure 124/75 157/81 H 157/91 H O2 Saturation 65 L 100 100 09/17/22 06:00 Temperature Heart Rate 79 Respiratory Rate Blood Pressure O2 Saturation Oxygen O2 Source BIPAP - EKG (time done) 0322 Rate: Rate (enter#) (88) Rhythm: NSR [place]: Normal Ischemia: No: ST elevation c/w ischemia - Labs Labs: Laboratory Tests 09/17/22 09/17/22 09/17/22 02:51 02:51 02:51 WBC 5.8 RBC 3.87 L Hgb 11.2 L Hct 35.7 L MCV 92.2 MCH 28.9 MCHC 31.4 L RDW 15.6 H Plt Count 296 MPV 11.2 H Neut # (Auto) 4.7 Lymph # (Auto) 0.8 L Cherry # (Auto) 0.2 Eos # (Auto) 0.1 Baso # (Auto) 0.0 Absolute Nucleated RBC 0.00 Nucleated RBC % 0.0 Bld Gas Analysis Time Sample Site ABG pH ABG pCO2 ABG pO2 ABG HCO3 ABG Total CO2 ABG O2 Saturation ABG Base Excess Jt Test O2 Delivery Device Vent Mode FiO2 Pressure Support Vent EPAP IPAP Sodium 141 Potassium 4.1 Chloride 108 Carbon Dioxide 18 L Anion Gap 15.0 H BUN 29 H Creatinine 1.6 H Estimated GFR (MDRD) 31 L Glucose 141 H Lactic Acid Calcium 10.3 Total Bilirubin 0.6 AST 19 ALT 14 Alkaline Phosphatase 88 Troponin I High Sens 6.1 B-Natriuretic Peptide Total Protein 6.9 Albumin 3.7 Globulin 3.2 Albumin/Globulin Ratio 1.2 Nasal Adenovirus (PCR) Nasal B. parapertussis DNA (PCR) Nasal Coronavir 229E PCR Nasal Coronavir HKU1 PCR Nasal Coronavir NL63 PCR Nasal Coronavir OC43 PCR Nasal Enterovir/Rhinovir PCR Nasal Influenza B PCR Nasal Influenza A PCR Nasal Parainfluen 1 PCR Nasal Parainfluen 2 PCR Nasal Parainfluen 3 PCR Nasal Parainfluen 4 PCR Nasal RSV (PCR) Nasal B.pertussis DNA PCR Nasal C.pneumoniae (PCR) [place] Human Metapneumo PCR Nasal M.pneumoniae (PCR) Nasal SARS-CoV-2 (PCR) Blood Type Blood Type Recheck Antibody Screen 09/17/22 09/17/22 09/17/22 02:51 02:51 02:51 WBC RBC Hgb Hct MCV MCH MCHC RDW Plt Count MPV Neut # (Auto) Lymph # (Auto) Cherry # (Auto) Eos # (Auto) Baso # (Auto) Absolute Nucleated RBC Nucleated RBC % Bld Gas Analysis Time Sample Site ABG pH ABG pCO2 ABG pO2 ABG HCO3 ABG Total CO2 ABG O2 Saturation ABG Base Excess Jt Test O2 Delivery Device Vent Mode FiO2 Pressure Support Vent EPAP IPAP Sodium Potassium Chloride Carbon Dioxide Anion Gap BUN Creatinine Estimated GFR (MDRD) Glucose Lactic Acid 5.1 H* Calcium Total Bilirubin AST ALT Alkaline Phosphatase Troponin I High Sens B-Natriuretic Peptide 354 H Total Protein Albumin Globulin Albumin/Globulin Ratio Nasal Adenovirus (PCR) Nasal B. parapertussis DNA (PCR) Nasal Coronavir 229E PCR Nasal Coronavir HKU1 PCR Nasal Coronavir NL63 PCR Nasal Coronavir OC43 PCR Nasal Enterovir/Rhinovir PCR Nasal Influenza B PCR Nasal Influenza A PCR Nasal Parainfluen 1 PCR Nasal Parainfluen 2 PCR Nasal Parainfluen 3 PCR Nasal Parainfluen 4 PCR Nasal RSV (PCR) Nasal B.pertussis DNA PCR Nasal C.pneumoniae (PCR) [place] Human Metapneumo PCR Nasal M.pneumoniae (PCR) Nasal SARS-CoV-2 (PCR) Blood Type Blood Type Recheck A POSITIVE Antibody Screen 09/17/22 09/17/22 09/17/22 03:12 03:20 03:41 WBC RBC Hgb Hct MCV MCH MCHC RDW Plt Count MPV Neut # (Auto) Lymph # (Auto) Cherry # (Auto) Eos # (Auto) Baso # (Auto) Absolute Nucleated RBC Nucleated RBC % Bld Gas Analysis Time 0314 Sample Site RIGHT BRACHIAL ABG pH 7.37 ABG pCO2 28 L ABG pO2 76 L ABG HCO3 15.5 L ABG Total CO2 16.4 L ABG O2 Saturation 94 ABG Base Excess -8.4 L Jt Test NOT APPLICABLE O2 Delivery Device BiPAP Vent Mode SYNCHRONOUS/TIMES FiO2 100.00 Pressure Support Vent 7 EPAP 5 IPAP 12 Sodium Potassium Chloride Carbon Dioxide Anion Gap BUN Creatinine Estimated GFR (MDRD) Glucose Lactic Acid Calcium Total Bilirubin AST ALT Alkaline Phosphatase Troponin I High Sens B-Natriuretic Peptide Total Protein Albumin Globulin Albumin/Globulin Ratio Nasal Adenovirus (PCR) NOT DETECTED Nasal B. parapertussis DNA (PCR) NOT DETECTED Nasal Coronavir 229E PCR NOT DETECTED Nasal Coronavir HKU1 PCR NOT DETECTED Nasal Coronavir NL63 PCR NOT DETECTED Nasal Coronavir OC43 PCR NOT DETECTED Nasal Enterovir/Rhinovir PCR NOT DETECTED Nasal Influenza B PCR NOT DETECTED Nasal Influenza A PCR NOT DETECTED Nasal Parainfluen 1 PCR NOT DETECTED Nasal Parainfluen 2 PCR NOT DETECTED Nasal Parainfluen 3 PCR NOT DETECTED Nasal Parainfluen 4 PCR NOT DETECTED Nasal RSV (PCR) NOT DETECTED Nasal B.pertussis DNA PCR NOT DETECTED Nasal C.pneumoniae (PCR) NOT DETECTED [place] Human Metapneumo PCR NOT DETECTED Nasal M.pneumoniae (PCR) NOT DETECTED Nasal SARS-CoV-2 (PCR) NOT DETECTED Blood Type A POSITIVE Blood Type Recheck Antibody Screen NEGATIVE PD MEDICAL DECISION MAKING - ED course Complexity details: reviewed results, re-evaluated patient, d/w patient, d/w family ED course: Patient presenting with shortness of breath, recent chills and runny nose found to be very hypoxic with room air sats of 65%.Patient required BiPAP to maintain oxygenation. She confirms she is a DNR DNI.Labs were reviewed. Patient has chronic anemia which appears to be at her baseline. Her lactic is elevated which could be attributed to her severe hypoxia.She is already anticoagulated on Xarelto. Her chest x-ray demonstrates bilateral Opacities, Left Greater than right. Her lung sounds are diminished and she does become more hypoxic/symptomatic if she lays flat. She has recently had a decrease in her Lasix dosing. Suspect the cause of her symptoms is a combination of congestive heart failure With possibility of pneumonia given recent URI symptoms with chills.Her respiratory panel is negative. Her troponin is negative. Discussed the case with Dr. Flaherty of tele hospitalist service who will admit the patient. 0354 - Color has improved and she feels better on BiPAP. is at the bedside. Patient and confirm that she is DNR/DNI. - Critical Care Time(min): 32 Time Includes: Direct patient care, Review records, Reassess patient, Document care Departure - Departure Disposition: 66 [facility] DC/Xfer Clinical Impression: Acute respiratory failure with hypoxia, Congestive heart failure, CAP (community acquired pneumonia) Condition: Serious
[2022-09-17] MEDS ORDERED: ONDANSETRON 4 MG/2 ML VIAL IVP STA (03:54)
[2022-09-17 04:26] LABS: B. PARAPERTUSSIS- RESP PCR PAN NOT DETECTED; B. PERTUSSIS- RESP PCR PANEL NOT DETECTED; C. PNEUMONIAE- RESP PCR PANEL NOT DETECTED; CORONAVIRUS 229E-RESP PCR NOT DETECTED; CORONAVIRUS HKU1-RESP PCR NOT DETECTED; CORONAVIRUS NL63-RESP PCR NOT DETECTED; CORONAVIRUS OC43-RESP PCR NOT DETECTED; HUMAN METAPNEUMOVIRUS NOT DETECTED; INFLUENZA A- RESP PCR PANEL NOT DETECTED; INFLUENZA B - RESP PCR PANEL NOT DETECTED; M. PNEUMONIAE- RESP PCR PANEL NOT DETECTED; PARAINFLUENZA VIRUS 1 NOT DETECTED; PARAINFLUENZA VIRUS 2 NOT DETECTED; PARAINFLUENZA VIRUS 3 NOT DETECTED; PARAINFLUENZA VIRUS 4 NOT DETECTED; RHINOVIRUS/ENTEROVIRUS NOT DETECTED; RSV- RESP PCR PANEL NOT DETECTED; SARS-CoV-2 -RESP PCR PANEL NOT DETECTED
[2022-09-17] MEDS ORDERED: cefTRIAXone 1 GM in SODIUM CHLORIDE 0.9% MINIBAG 100 ML IV STA (04:37)
[2022-09-17] MEDS ORDERED: AZITHROMYCIN INJ 500 MG in SODIUM CHLORIDE 0.9% 250 ML IV STA (04:37)
[2022-09-17] MEDS ORDERED: cefTRIAXone 1 GM VIAL ONE (04:41)
--- NOTE | 2022-09-17 06:17 | HISTORY & PHYSICAL EXAMINATION ---
History and Physical - History and Physical Chief complaint Shortness of breath History of present illness This is 81-year-old female who was seen in the emergency room due to complaint of shortness of breath with suddenly started last night and she woke up from her sleep. She had mild chills last evening. Patient denies any chest pain. Patient is not using any oxygen at home. Her oxygen saturation was in the 60s on room air therefore she was started on nonrebreather by EMS. Patient is currently on the BiPAP 100% FiO2. Patient is on Xarelto at home. Recently her Lasix was decreased by PCP from 80 mg twice a day to 40 mg twice a day. Patient also received IV Rocephin azithromycin and IV Lasix in the emergency room. Patient denies any diarrhea or dysuria. She had 1 episode of vomiting in the emergency room today. She denies any focal weakness numbness tingling headache etc. Past medical history Congestive heart failure Atrial fibrillation History of stroke Hypertension Dyslipidemia History of DVT Past surgical history None Family history No history of coronary artery disease Social history Patient is a prior smoker. No current alcohol or tobacco use Review of system 14 point review of system was done. It was negative except as per history of pr esent illness Allergies Reviewed Home medications Review Physical examination Vital signs Blood pressure 157/91 temperature 37.3 C, respiration 27/min, pulse 86, oxygen saturation 100% on high percent FiO2 on BiPAP Head is atraumatic normocephalic Pupils are round and reactive to light and accommodation Patient is on BiPAP Respiration tachypnea. Air entry is decreased bilaterally CVS tachycardia. 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 Patient is alert oriented to time place and person Musculoskeletal no calf muscle tenderness Labs Reviewed sodium 141, creatinine 1.6, AST and ALT is normal, sodium and potassium is normal, WBC 5.8, hemoglobin 11.2, ABG showed pH 7.37 with PO2 of 76 on 100% FiO2 on BiPAP, PCO2 of 28 lactic acid 5.1, beta-adrenergic peptide 354, viral test is negative, Chest x-ray Report is not available but as per the ED physician it showed bilateral inf iltrates/edema EKG Normal sinus rhythm without any ST-T elevation Assessment 1. Acute respiratory failure with hypoxia 2. Bilateral pneumonia versus pulmonary edema 3. Suspected acute on chronic congestive heart failure, probably systolic and diastolic 4. Previous history of stroke 5. Dyslipidemia 6. GERD 7. Lactic acidosis 8. Acute on chronic renal failure Plan Admit patient in ICU Continue BiPAP Continue IV Lasix Continue antibiotics Rocephin and doxycycline Check daily input output Get 2D echocardiogram We will try to review previous chart which is under different name Check daily CBC and BMP Check daily weight Follow troponin CODE STATUS DO NOT RESUSCITATEDO NOT INTUBATE Total time taken for this was 70 minutes. This was telemedicine evaluation using bedside telemedicine audiovisual cart with the help of bedside nursing staff .
[2022-09-17] MEDS ORDERED: DOXYCYCLINE INJ 100 MG in SODIUM CHLORIDE 0.9% MINIBAG 100 ML IV SCH (09:00)
[2022-09-17] MEDS ORDERED: FAMOTIDINE 20 MG TABLET PO SCH (09:00)
[2022-09-17] MEDS ORDERED: FUROSEMIDE 40 MG/4 ML VIAL IVP SCH (09:00)
[2022-09-17] MEDS: cefTRIAXone 1 GM in SODIUM CHLORIDE 0.9% MINIBAG 100 ML IV SCH (09:04)
[2022-09-17] MEDS: SODIUM CHLORIDE FLUSH 0.9% 10 ML SYRINGE IVP SCH ×3 (09:04→21:33)
--- NOTE | 2022-09-17 09:06 | XRAY Report ---
PROCEDURE: Chest 1 View X-Ray INDICATIONS: SOA TECHNIQUE: One view of the chest was acquired. COMPARISON: None. FINDINGS: Surgical changes and devices: None. Lungs and pleura: Mixed interstitial and alveolar opacity in the perihilar regions bilaterally, left worse than right. Patchy opacity in the retrocardiac region and obscuration of portions of the left diaphragm. No significant pleural effusion or pneumothorax. Mediastinum: Mediastinal contours appear normal. Heart size is normal. Bones and chest wall: No suspicious bony lesions. Overlying soft tissues appear unremarkable. IMPRESSION: 1. Bilateral mixed interstitial and alveolar opacity suggestive of pneumonia, less likely aspiration or edema. Correlate with BNP. 2. Final interpretation concordant with preliminary report. Reviewed by: Lisbet Smith MD on 09/17/2022 9:05 AM [facility] Approved by: Lisbet Smith MD on 09/17/2022 9:05 AM [facility] Station ID: [id number]
[2022-09-17] MEDS: ACETAMINOPHEN 325 MG TABLET PO PRN ×2 (12:21→15:21)
[2022-09-17] MEDS: FUROSEMIDE 40 MG/4 ML VIAL IVP SCH ×2 (13:16→22:11)
--- NOTE | 2022-09-17 14:07 | PHARMACY PROGRESS NOTE ---
- Best Possible Medication History Admit Date and Time: 09/17/22 0522 Processed by: Nursing Medication History completed: Yes As the person ultimately responsible for medication therapy, providers are able to order a medication from an existing home medication list in [facility] via the "Reconcile Routine" prior to Confirmation of that medication by accounting support specialist. Such practice is discouraged except when the physician, in their clinical judgment, deems that a medical need exists for a medication without regard to previous use.
[2022-09-17] MEDS ORDERED: DICLOFENAC SODIUM 1% GEL 50 GM TUBE TOP PRN (14:42)
[2022-09-17] MEDS ORDERED: ONDANSETRON ODT 4 MG TABLET PO PRN (14:42)
[2022-09-17] MEDS ORDERED: ALPRAZolam 0.25 MG TABLET PO PRN (14:42)
[2022-09-17] MEDS: traMADol 50 MG TABLET PO PRN (16:58)
[2022-09-17] MEDS ORDERED: MAGNESIUM OXIDE 400 MG TABLET PO ONE (20:57)
--- NOTE | 2022-09-17 21:02 | PROVIDER PROGRESS NOTE ---
Quality Reviewer Note - Quality Reviewer Note Quality Reviewer Note: Consult Information Member Facility: [facility] Facility Requesting Clinician: Miriam Cook Patient Name: Sonali Rodriguez Date of : 1940 Gender: Female Reason for Consult Reason for Consult: Drug Order/Clarification Clinical Note Clinical Note: per rn - "Pt admitted for CHF. Order clarification; lasix 40mg po ordered for 2099 & lasix 40mg IVP@ 2199, please clarify which you would like. 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 Can we please get an order for these. Last, lactic acid was 3.2 did you want to repeat lab in am? Thank you." unable to reach rn via phone pt already on famotidine as prescribed by primary team lasix IV already stopped by another provider pt currently on tizanidine prn for cramps, but magnesium oxide 200 mg x 1 dose ordered ok to repeat lactate continue close monitoring
[2022-09-17] MEDS: FUROSEMIDE 40 MG TABLET PO SCH (21:23)
[2022-09-17] MEDS: FAMOTIDINE 20 MG TABLET PO SCH (21:24)
[2022-09-17] MEDS: APIXABAN 5 MG TABLET PO SCH (21:24)
[2022-09-17] MEDS: ATORVASTATIN 10 MG TABLET PO SCH (21:24)
[2022-09-17] MEDS: POTASSIUM CHLORIDE 20 MEQ TABLET PO SCH (21:25)
[2022-09-17] MEDS: carvediloL 12.5 MG TABLET PO SCH (21:25)
[2022-09-17] MEDS: ONDANSETRON 4 MG/2 ML VIAL IVP PRN (21:32)
[2022-09-17] MEDS: tiZANidine 4 MG TABLET PO SCH (21:56)
[2022-09-18] MEDS ORDERED: VANCOMYCIN INJ 1.5 GM in SODIUM CHLORIDE 0.9% 500 ML IV SCH (05:00)
[2022-09-18] MEDS: SODIUM CHLORIDE FLUSH 0.9% 10 ML SYRINGE IVP PRN ×3 (05:22→13:35)
[2022-09-18 05:52] LABS: BASOPHILS % (AUTO) 0.3 %; EOSINOPHILS # (AUTO) 0.2 10^3/uL (0.0-0.7); EOSINOPHILS % (AUTO) 1.8 %; HCT - HEMATOCRIT 26.2 % (37.0-47.0); HGB - HEMOGLOBIN 8.3 g/dL (12.0-16.0); LYMPHOCYTES # (AUTO) 1.5 10^3/uL (1.5-3.5); LYMPHOCYTES % (AUTO) 12.3 %; MEAN CORPUSCULAR HEMOGLOBIN 28.9 pg (27.0-31.0); MEAN CORPUSCULAR HGB CONC 31.7 g/dL (32.0-36.0); MEAN CORPUSCULAR VOLUME 91.3 fL (81.0-99.0); MEAN PLATELET VOLUME 11.4 fL (7.9-10.8); MONOCYTES # (AUTO) 0.9 10^3/uL (0.0-1.0); MONOCYTES % (AUTO) 7.1 %; NEUTROPHILS # (AUTO) 9.6 10^3/uL (1.5-6.6); NEUTROPHILS % (AUTO) 77.8 %; PLT - PLATELET COUNT 185 10^3/uL (130-450); RED BLOOD COUNT 2.87 10^6/uL (4.20-5.40); RED CELL DISTRIBUTION WIDTH 15.4 % (12.0-15.0); WHITE BLOOD COUNT 12.4 x10^3/uL (4.8-10.8)
[2022-09-18 05:53] LABS: CALCIUM, IONIZED 1.17 mmol/L (1.15-1.33); VBG PH 7.384 (7.31-7.41)
[2022-09-18 06:25] LABS: CALCIUM 8.8 mg/dL (8.5-10.3); CREATININE 1.7 mg/dL (0.4-1.0); MAGNESIUM 1.5 mg/dL (1.7-2.8)
[2022-09-18] MEDS: MAGNESIUM OXIDE 400 MG TABLET PO SCH ×3 (09:00→21:23)
[2022-09-18] MEDS: FUROSEMIDE 40 MG TABLET PO SCH ×2 (09:00→21:24)
[2022-09-18] MEDS: ACETAMINOPHEN 325 MG TABLET PO PRN (09:00)
[2022-09-18] MEDS: POTASSIUM CHLORIDE 20 MEQ TABLET PO SCH ×2 (09:00→21:25)
[2022-09-18] MEDS: APIXABAN 5 MG TABLET PO SCH ×2 (09:00→21:24)
[2022-09-18] MEDS: ASPIRIN EC 81 MG TABLET PO SCH (09:01)
[2022-09-18] MEDS: FAMOTIDINE 20 MG TABLET PO SCH ×2 (09:01→21:23)
[2022-09-18] MEDS: predniSONE 5 MG TABLET PO SCH (09:01)
[2022-09-18] MEDS: carvediloL 12.5 MG TABLET PO SCH ×2 (09:01→21:25)
[2022-09-18] MEDS: cefTRIAXone 1 GM in SODIUM CHLORIDE 0.9% MINIBAG 100 ML IV SCH (09:17)
[2022-09-18] MEDS: SODIUM CHLORIDE FLUSH 0.9% 10 ML SYRINGE IVP SCH ×3 (09:25→22:00)
[2022-09-18] MEDS: AZITHROMYCIN INJ 500 MG in SODIUM CHLORIDE 0.9% 250 ML IV SCH (10:07)
[2022-09-18] MEDS: LIDOCAINE PATCH 5% TOP SCH (10:13)
--- NOTE | 2022-09-18 10:52 | PROVIDER PROGRESS NOTE ---
Subjective - Prog Note Date Prog Note Date: 09/18/22 Prog Note Time: 10:48 - Subjective Pt reports feeling: Improved Subjective: This morning she had good color in her face, she has no increased work of breathing and sitting comfortably in bed. Her blood cultures are positive for methacillin resistant staph epi under 24 hours in all 4 bottles. Current Medications - Current Medications Current Medications: Active Medications Acetaminophen (Acetaminophen 325 Mg Tablet) 650 mg PO Q4HR PRN PRN Reason: Pain 1 to 4, or Fever Last Admin: 09/18/22 09:00 Dose: 650 mg Alprazolam (Alprazolam 0.25 Mg Tablet) 0.25 mg PO QPM PRN PRN Reason: Insomnia Apixaban (Apixaban 5 Mg Tablet) 5 mg PO BID [facility] Last Admin: 09/18/22 09:00 Dose: 5 mg Aspirin (Aspirin Ec 81 Mg Tablet) 81 mg PO DAILY [facility] Last Admin: 09/18/22 09:01 Dose: 81 mg Atorvastatin Calcium (Atorvastatin 10 Mg Tablet) 20 mg PO QPM [facility] Last Admin: 09/17/22 21:24 Dose: 20 mg Carvedilol (Carvedilol 12.5 Mg Tablet) 12.5 mg PO BID [facility] Last Admin: 09/18/22 09:01 Dose: 12.5 mg Diclofenac Sodium (Diclofenac Sodium 1% Gel 50 Gm Tube) 4 gm TOP QID PRN PRN Reason: PAIN Famotidine (Famotidine 20 Mg Tablet) 20 mg PO BID [facility] Last Admin: 09/18/22 09:01 Dose: 20 mg Furosemide (Furosemide 40 Mg Tablet) 40 mg PO BID [facility] Last Admin: 09/18/22 09:00 Dose: 40 mg Ceftriaxone Sodium 1 gm/ (Sodium Chloride) 100 mls @ 200 mls/hr IV DAILY [facility] Last Infusion: 09/18/22 09:50 Dose: Infused Azithromycin 500 mg/ Sodium (Chloride) 250 mls @ 250 mls/hr IV DAILY [facility] Stop: 09/19/22 09:59 Last Admin: 09/18/22 10:07 Dose: 250 mls/hr Vancomycin HCl 1 gm/ Sodium (Chloride) 250 mls @ 167 mls/hr IV Q36H [facility] Lidocaine (Lidocaine Patch 5%) 1 patch TOP DAILY [facility] Last Admin: 09/18/22 10:13 Dose: 1 patch Magnesium Oxide (Magnesium Oxide 400 Mg Tablet) 400 mg PO Q6H [facility]; Protocol Stop: 09/18/22 14:01 Last Admin: 09/18/22 09:00 Dose: 400 mg Ondansetron HCl (Ondansetron 4 Mg/2 Ml Vial) 4 mg IVP Q6HR PRN PRN Reason: Nausea / Vomiting Last Admin: 09/17/22 21:32 Dose: 4 mg Ondansetron HCl (Ondansetron Odt 4 Mg Tablet) 4 mg PO Q8HR PRN PRN Reason: Nausea / Vomiting Potassium Chloride (Potassium Chloride 20 Meq Tablet) 20 meq PO BID [facility] Last Admin: 09/18/22 09:00 Dose: 20 meq Prednisone (Prednisone 5 Mg Tablet) 2.5 mg PO DAILYWM [facility] Last Admin: 09/18/22 09:01 Dose: 2.5 mg Sodium Chloride (Sodium Chloride Flush 0.9% 10 Ml Syringe) 10 ml IVP 0100,0900,1700 [facility] Last Admin: 09/18/22 09:25 Dose: Not Given Sodium Chloride (Sodium Chloride Flush 0.9% 10 Ml Syringe) 10 ml IVP PRN PRN PRN Reason: NEEDED PER PROVIDER ORDERS Last Admin: 09/18/22 08:30 Dose: 10 ml Tizanidine HCl (Tizanidine 4 Mg Tablet) 4 mg PO QPM [facility] Last Admin: 09/17/22 21:56 Dose: 2 mg Tramadol HCl (Tramadol 50 Mg Tablet) 100 mg PO Q6HR PRN PRN Reason: PAIN Last Admin: 09/17/22 16:58 Dose: 100 mg Alprazolam [Xanax] 0.25 mg PO QPM PRN 09/17/22 Aspirin EC [Ecotrin] 81 mg PO DAILY 09/17/22 Carvedilol [Coreg] 12.5 mg PO BID 09/17/22 Diclofenac Sodium 1% Gel [Voltaren Gel] 1 applic TOP QID PRN 09/17/22 Estrogens, Conjugated Cream [Premarin Cream] 1 applic TOP DAILY 09/17/22 Famotidine [Pepcid] 20 mg PO BID 09/17/22 Furosemide [Lasix] 40 mg PO BID 09/17/22 Lidocaine Patch 5% [Lidoderm Patch] 1 - 2 patch TOP DAILY 09/17/22 Lovastatin 40 mg PO QPM 09/17/22 Omeprazole 40 mg PO BID 09/17/22 Ondansetron Odt [Zofran Odt] 4 mg PO Q8HR PRN 09/17/22 Potassium Chloride 20 meq PO BID 09/17/22 Rivaroxaban [Xarelto] 15 mg PO QDDINNER 09/17/22 Tizanidine HCl 4 mg PO QPM 09/17/22 Tramadol HCl [Ultram] 1 - 2 tab PO Q6HR PRN 09/17/22 predniSONE [Prednisone] 2.5 mg PO DAILY 09/17/22 Objective - Vital Signs/Intake & Output Vital Signs: Vital Signs x48h Temp Pulse Resp BP Pulse Ox O2 Flow Rate 09/18/22 10:00 81 22 117/58 L 96 2 09/18/22 09:00 87 19 99/65 95 2 09/18/22 08:00 36.1 C L 82 18 124/63 93 2 09/18/22 07:00 66 18 120/70 94 2 09/18/22 06:00 70 16 132/60 H 94 2 09/18/22 05:00 68 17 123/63 95 2 09/18/22 04:00 58 L 16 113/56 L 96 2 09/18/22 03:00 62 18 100/46 L 97 2 Intake & Output: Intake & Output 09/15/22 09/16/22 09/17/22 09/18/22 23:59 23:59 23:59 23:59 Intake Total 1830 990 Output Total 300 300 Balance 1530 690 - Objective General Appearance: positive: No acute distress, Alert Eyes Bilateral: positive: PERRL, EOMI ENT: positive: Pharynx nml, No signs of dehydration Neck: positive: No JVD. negative: Lymphadenopathy (R), Lymphadenopathy (L), Stiff neck Respiratory: positive: Chest non-tender, No respiratory distress, Breath sounds nml Cardiovascular: positive: Regular rate & rhythm Abdomen: positive: Non-tender, No distention Skin: positive: Color nml, No rash, Warm, Dry. negative: Cyanosis, Puncture wound Extremities: positive: Nml appearance, Pedal edema Neurologic/Psychiatric: positive: Oriented x3, CN's nml (2-12), Mood/affect nml - Lab Results Fish Bones: 09/18/22 05:46 09/18/22 05:46 Other Labs: Lab Results x24hrs 09/18/22 09/18/22 09/18/22 Range/Units 05:46 05:46 05:46 WBC (4.8-10.8) x10^3/uL RBC (4.20-5.40) 10^6/uL Hgb (12.0-16.0) g/dL Hct (37.0-47.0) % MCV (81.0-99.0) fL MCH (27.0-31.0) pg MCHC (32.0-36.0) g/dL RDW (12.0-15.0) % Plt Count (130-450) 10^3/uL MPV (7.9-10.8) fL Neut # (Auto) (1.5-6.6) 10^3/uL Lymph # (Auto) (1.5-3.5) 10^3/uL Cooper # (Auto) (0.0-1.0) 10^3/uL Eos # (Auto) (0.0-0.7) 10^3/uL Baso # (Auto) (0.0-0.1) 10^3/uL Absolute Nucleated RBC x10^3/uL Nucleated RBC % /100WBC VBG pH 7.384 (7.31-7.41) Ionized Calcium 1.17 (1.15-1.33) mmol/L Sodium (135-145) mmol/L Potassium (3.5-5.0) mmol/L Chloride (101-111) mmol/L Carbon Dioxide (21-32) mmol/L Anion Gap (6-13) BUN (6-20) mg/dL Creatinine (0.4-1.0) mg/dL Estimated GFR (MDRD) (>89) Glucose (70-100) mg/dL Lactic Acid (0.5-2.2) mmol/L Calcium (8.5-10.3) mg/dL Phosphorus 3.1 (2.5-4.6) mg/dL Magnesium (1.7-2.8) mg/dL Procalcitonin 45.76 H* (<0.5) ng/mL Nasal Screen MRSA (PCR) (NEGATIVE) 09/18/22 09/18/22 09/17/22 Range/Units 05:46 05:46 21:14 WBC 12.4 H (4.8-10.8) x10^3/uL RBC 2.87 L (4.20-5.40) 10^6/uL Hgb 8.3 L (12.0-16.0) g/dL Hct 26.2 L (37.0-47.0) % MCV 91.3 (81.0-99.0) fL MCH 28.9 (27.0-31.0) pg MCHC 31.7 L (32.0-36.0) g/dL RDW 15.4 H (12.0-15.0) % Plt Count 185 (130-450) 10^3/uL MPV 11.4 H (7.9-10.8) fL Neut # (Auto) 9.6 H (1.5-6.6) 10^3/uL Lymph # (Auto) 1.5 (1.5-3.5) 10^3/uL Cooper # (Auto) 0.9 (0.0-1.0) 10^3/uL Eos # (Auto) 0.2 (0.0-0.7) 10^3/uL Baso # (Auto) 0.0 (0.0-0.1) 10^3/uL Absolute Nucleated RBC 0.00 x10^3/uL Nucleated RBC % 0.0 /100WBC VBG pH (7.31-7.41) Ionized Calcium (1.15-1.33) mmol/L Sodium 136 (135-145) mmol/L Potassium 4.0 (3.5-5.0) mmol/L Chloride 104 (101-111) mmol/L Carbon Dioxide 25 (21-32) mmol/L Anion Gap 7.0 (6-13) BUN 33 H (6-20) mg/dL Creatinine 1.7 H (0.4-1.0) mg/dL Estimated GFR (MDRD) 29 L (>89) Glucose 97 (70-100) mg/dL Lactic Acid 1.4 (0.5-2.2) mmol/L Calcium 8.8 (8.5-10.3) mg/dL Phosphorus (2.5-4.6) mg/dL Magnesium 1.5 L (1.7-2.8) mg/dL Procalcitonin (<0.5) ng/mL Nasal Screen MRSA (PCR) (NEGATIVE) 09/17/22 09/17/22 09/17/22 Range/Units 15:49 13:55 10:47 WBC (4.8-10.8) x10^3/uL RBC (4.20-5.40) 10^6/uL Hgb (12.0-16.0) g/dL Hct (37.0-47.0) % MCV (81.0-99.0) fL MCH (27.0-31.0) pg MCHC (32.0-36.0) g/dL RDW (12.0-15.0) % Plt Count (130-450) 10^3/uL MPV (7.9-10.8) fL Neut # (Auto) (1.5-6.6) 10^3/uL Lymph # (Auto) (1.5-3.5) 10^3/uL Cooper # (Auto) (0.0-1.0) 10^3/uL Eos # (Auto) (0.0-0.7) 10^3/uL Baso # (Auto) (0.0-0.1) 10^3/uL Absolute Nucleated RBC x10^3/uL Nucleated RBC % /100WBC VBG pH (7.31-7.41) Ionized Calcium (1.15-1.33) mmol/L Sodium (135-145) mmol/L Potassium (3.5-5.0) mmol/L Chloride (101-111) mmol/L Carbon Dioxide (21-32) mmol/L Anion Gap (6-13) BUN (6-20) mg/dL Creatinine (0.4-1.0) mg/dL Estimated GFR (MDRD) (>89) Glucose (70-100) mg/dL Lactic Acid 3.2 H* 2.7 H (0.5-2.2) mmol/L Calcium (8.5-10.3) mg/dL Phosphorus (2.5-4.6) mg/dL Magnesium (1.7-2.8) mg/dL Procalcitonin (<0.5) ng/mL Nasal Screen MRSA (PCR) NEGATIVE (NEGATIVE) Sepsis Event Note (H) - Evaluation Current Stage of Sepsis: Ruled out Assessment/Plan - Problem List (1) Acute respiratory failure with hypoxia Impression: Sonali was admitted for abrupt onset of SOB that started 09/16 and woke her up from sleep. Her oxygen was in the 60s on room air when EMS arrived and she was started on a nonrebreather. She was put on bipap 100% Fi02 in the ED. When her breathing became less laborious they removed bipap and she was breathing 96% on room air. Since then she has been stable on room air without increased work of breathing. Her CXR on bilateral mixed interstitial and alveolar opacity suggestive of penumonia, less likely aspiration or edema. Troponins are within normal limits Lactic acid was at 5.1 at 09/17 at 4am, by pm 09/17 it was within normal limits. Initial considerations for acute respiratory failure are pneumonia, CHF, interstitial lung disease, pulmonary embolism, arrhythmia, IA. Her viral panel on 09/17 was negative for all. Her white cell count on 09/17 was 5.8, on 09/18 its 12.4 and neutrophils have been stable at 11. BNP is 354, she has a history of CHF but in November of 2021 she had a normal echo. She had blood cultures drawn, all 4 came back positive for methacillin resistant staph epi under 24 hours. She denies being recently ill, denies vomiting, diarrhea, abdominal pain, cough, chest pain. However, she says that she has had a runny nose which she describes at chronic and she had chills in the evening before she woke up with shortness of breath. She is compliant with her home lasix, 40mg BID. She has chronic anemia, and appears to be at baseline. She has not had a fever. In the ED she was given 40mg BID of lasix and antibiotics which she responded to. She's been on telemetry since 09/17 at 19:48 that has been sinus rhythm. I'd like to repeat her CXR to evaluate pneumonia vs CHF for the cause of her SOB. She had a PICC line placed today by anesthesia. I will evaluate for an IA with EKG and troponins. Plan - continue telemetry - monitor O2, supplemental prn if she becomes hypoxic again - continue Lasix 40mg BID - repeat BNP - repeat CXR - Echo to be performed on tuesday when resource technician is available. - get an EKG and troponins. (2) Congestive heart failure Impression: She has a historyof CHF that managed by lasix. She is compliant with her lasix 40mg BID, and had an echo in November 2021 that was normal. Her CXR on 09/18 was read and thought to be more similar to pneumonia than edema. However, her BNP was 354 and she responded to lasix and antibiotics. It is still unclear if the etiology of her SOB this admission is a CHF exacerbation or due to pneumonia. Plan - continue lasix 40mg BID - Order an Echo, will not be performed until Tuesday 09/18 when an resource technician is available. - repeat BNP - repeat CXR (3) Dyslipidemia Impression: Sonali has a history of dyslipidemia that is managed with lovastatin 40mg qpm. Atorvastatin is on our formulary so she will be managed here with Lipitor 20mg qpm. (5) GERD (gastroesophageal reflux disease) Impression: she has a history of GERD with Tao's esophagus. She is managed with Famotidine 20mg BID, I will continue this while she is here. (6) History of stroke Impression: She has a history of stroke which is managed by Eliquis. Continue 5mg PO BID. (7) Hypertension Impression: Hypertension is managed with Carvedilol 12.5mg PO BID, she has not had elevated BP since admission. Infact, her blood pressure has been fluctuating. Her lowest was 80/50 on admission, and has gotten as high as 132/60. This afternoon is was 70/40. Plan - continue carvedilol but hold for BP <110, hold for pulse <60.
--- NOTE | 2022-09-18 12:25 | XRAY Report ---
PROCEDURE: Chest for Line Placement INDICATIONS: picc line TECHNIQUE: One view of the chest was acquired. COMPARISON: 09/17/2022, 11/19/2021 FINDINGS: Surgical changes and devices: The right-sided PICC line has been placed, the tip overlying the super ior aspect of the superior vena cava, 4 to 5 cm above the cavoatrial junction. Lungs and pleura: On the semiupright images, no large pneumothorax or large pleural effusions can be seen. Mild interstitial prominence can be seen. Low lung volumes can be seen, causing a crowded appe arance to the lung markings. Mediastinum: Mediastinal contours appear normal. Heart size is normal. Bones and chest wall: No suspicious bony lesions. Overlying soft tissues appear unremarkable. IMPRESSION: The tip of the right-sided PICC line is seen overlying the superior aspect of the superior vena cava. Mild interstitial prominence can be seen. Reviewed by: Abraham Hua MD on 09/18/2022 11:24 AM [facility] Approved by: Abraham Hua MD on 09/18/2022 11:24 AM [facility] Station ID: [id number]
--- NOTE | 2022-09-18 12:31 | ANESTHESIA PROCEDURE NOTE ---
Anesth Central Line Template - Central Line Central Line Preparation: Consent Obtained, Time out completed, Ultrasound used, Sterile prep and drape Central line location: Right Basilic Central line type: PICC Single Lumen Central line catheter tip site resides: Superior vena cava (SVC) Central line aftercare: Secured, Placement confirmed, No pneumothorax, No complications, Bundle checklist complete, Pt tolerated well (trimmed at 48cm, 4 cm left exposed. Confirmed by CXR, ok to use.)
--- NOTE | 2022-09-18 13:19 | XRAY Report ---
PROCEDURE: Chest 1 View X-Ray INDICATIONS: pneumonia vs. chf on admit, now resolved sob TECHNIQUE: One view of the chest was acquired. COMPARISON: Earlier in the day on 09/18/2022. FINDINGS: Surgical changes and devices: There is a stable right-sided PICC line. Lungs and pleura: No pneumothorax or large pleural effusion can be seen. The lungs are better aerate d on the current study than on the prior, with decreased interstitial prominence. Streaky opacities c an be seen at the lung bases. Mediastinum: Mediastinal contours appear normal. Heart size is normal. Macrocalcification Bones and chest wall: No suspicious bony lesions. Overlying soft tissues appear unremarkable. IMPRESSION: Improved aeration, with decrease in interstitial prominence. Likely atelectasis at the lung bases. Stable right-sided PICC line. Reviewed by: Abraham Hua MD on 09/18/2022 12:18 PM [facility] Approved by: Abraham Hua MD on 09/18/2022 12:18 PM [facility] Station ID: [id number]
[2022-09-18] MEDS: traMADol 50 MG TABLET PO PRN ×2 (13:33→21:22)
[2022-09-18] MEDS: ATORVASTATIN 10 MG TABLET PO SCH (21:20)
[2022-09-18] MEDS: tiZANidine 4 MG TABLET PO SCH (21:58)
[2022-09-19] MEDS: MAGNESIUM OXIDE 400 MG TABLET PO SCH (01:57)
[2022-09-19] MEDS: SODIUM CHLORIDE FLUSH 0.9% 10 ML SYRINGE IVP PRN (05:03)
[2022-09-19 05:28] LABS: BASOPHILS % (AUTO) 0.2 %; EOSINOPHILS # (AUTO) 0.3 10^3/uL (0.0-0.7); EOSINOPHILS % (AUTO) 3.1 %; HCT - HEMATOCRIT 27.2 % (37.0-47.0); HGB - HEMOGLOBIN 8.4 g/dL (12.0-16.0); LYMPHOCYTES # (AUTO) 1.5 10^3/uL (1.5-3.5); LYMPHOCYTES % (AUTO) 15.9 %; MEAN CORPUSCULAR HEMOGLOBIN 28.7 pg (27.0-31.0); MEAN CORPUSCULAR HGB CONC 30.9 g/dL (32.0-36.0); MEAN CORPUSCULAR VOLUME 92.8 fL (81.0-99.0); MEAN PLATELET VOLUME 10.9 fL (7.9-10.8); MONOCYTES # (AUTO) 0.6 10^3/uL (0.0-1.0); MONOCYTES % (AUTO) 6.3 %; NEUTROPHILS # (AUTO) 6.9 10^3/uL (1.5-6.6); NEUTROPHILS % (AUTO) 73.9 %; PLT - PLATELET COUNT 211 10^3/uL (130-450); RED BLOOD COUNT 2.93 10^6/uL (4.20-5.40); RED CELL DISTRIBUTION WIDTH 15.1 % (12.0-15.0); WHITE BLOOD COUNT 9.4 x10^3/uL (4.8-10.8)
[2022-09-19 05:40] LABS: CALCIUM, IONIZED 1.29 mmol/L (1.15-1.33); VBG PH 7.37 (7.31-7.41)
[2022-09-19 06:05] LABS: CALCIUM 9.2 mg/dL (8.5-10.3); CREATININE 1.5 mg/dL (0.4-1.0); CRP - C-REACTIVE PROTEIN 20.3 mg/dL (0-1.0); PHOSPHORUS 2.9 mg/dL (2.5-4.6); POTASSIUM 3.7 mmol/L (3.5-5.0)
[2022-09-19] MEDS ORDERED: POTASSIUM CHLORIDE 20 MEQ TABLET PO ONE (08:00)
[2022-09-19] MEDS: predniSONE 5 MG TABLET PO SCH (09:00)
[2022-09-19] MEDS: ASPIRIN EC 81 MG TABLET PO SCH (09:18)
[2022-09-19] MEDS: FUROSEMIDE 40 MG TABLET PO SCH ×2 (09:18→21:20)
[2022-09-19] MEDS: FAMOTIDINE 20 MG TABLET PO SCH ×2 (09:18→21:20)
[2022-09-19] MEDS: APIXABAN 5 MG TABLET PO SCH ×2 (09:18→21:27)
--- NOTE | 2022-09-19 09:18 | PROVIDER PROGRESS NOTE ---
Subjective - Prog Note Date Prog Note Date: 09/19/22 Prog Note Time: 09:16 - Subjective Pt reports feeling: Improved Subjective: Sonali is feeling better today, she is happy to have the PICC line placed because she was so hard for the nurses to find a vein for blood draws. She denies a cough, abdominal pain. She did feel short of breath today, when she walked to the bathroom her O2 dropped to 86. She wanted to leave by Tuesday to join her at his follow up [facility] for his lung cancer and I told her that was unlikely to happen but we would need to see how things progress until then. Current Medications - Current Medications Current Medications: Active Medications Acetaminophen (Acetaminophen 325 Mg Tablet) 650 mg PO Q4HR PRN PRN Reason: Pain 1 to 4, or Fever Last Admin: 09/18/22 09:00 Dose: 650 mg Alprazolam (Alprazolam 0.25 Mg Tablet) 0.25 mg PO QPM PRN PRN Reason: Insomnia Apixaban (Apixaban 5 Mg Tablet) 5 mg PO BID [facility] Last Admin: 09/18/22 21:24 Dose: 5 mg Aspirin (Aspirin Ec 81 Mg Tablet) 81 mg PO DAILY [facility] Last Admin: 09/18/22 09:01 Dose: 81 mg Atorvastatin Calcium (Atorvastatin 10 Mg Tablet) 20 mg PO QPM [facility] Last Admin: 09/18/22 21:20 Dose: 20 mg Carvedilol (Carvedilol 12.5 Mg Tablet) 12.5 mg PO BID [facility] Last Admin: 09/18/22 21:25 Dose: Not Given Diclofenac Sodium (Diclofenac Sodium 1% Gel 50 Gm Tube) 4 gm TOP QID PRN PRN Reason: PAIN Famotidine (Famotidine 20 Mg Tablet) 20 mg PO BID [facility] Last Admin: 09/18/22 21:23 Dose: 20 mg Furosemide (Furosemide 40 Mg Tablet) 40 mg PO BID [facility] Last Admin: 09/18/22 21:24 Dose: 40 mg Ceftriaxone Sodium 1 gm/ (Sodium Chloride) 100 mls @ 200 mls/hr IV DAILY [facility] Last Infusion: 09/18/22 09:50 Dose: Infused Azithromycin 500 mg/ Sodium (Chloride) 250 mls @ 250 mls/hr IV DAILY [facility] Stop: 09/19/22 09:59 Last Infusion: 09/18/22 11:16 Dose: Infused Vancomycin HCl 1 gm/ Sodium (Chloride) 250 mls @ 167 mls/hr IV Q36H [facility] Lidocaine (Lidocaine Patch 5%) 1 patch TOP DAILY [facility] Last Admin: 09/18/22 10:13 Dose: 1 patch Ondansetron HCl (Ondansetron 4 Mg/2 Ml Vial) 4 mg IVP Q6HR PRN PRN Reason: Nausea / Vomiting Last Admin: 09/17/22 21:32 Dose: 4 mg Ondansetron HCl (Ondansetron Odt 4 Mg Tablet) 4 mg PO Q8HR PRN PRN Reason: Nausea / Vomiting Potassium Chloride (Potassium Chloride 20 Meq Tablet) 20 meq PO BID [facility] Last Admin: 09/18/22 21:25 Dose: 20 meq Prednisone (Prednisone 5 Mg Tablet) 2.5 mg PO DAILYWM [facility] Last Admin: 09/18/22 09:01 Dose: 2.5 mg Sodium Chloride (Sodium Chloride Flush 0.9% 10 Ml Syringe) 10 ml IVP 0100,0900,1700 [facility] Last Admin: 09/18/22 22:00 Dose: 10 ml Sodium Chloride (Sodium Chloride Flush 0.9% 10 Ml Syringe) 10 ml IVP PRN PRN PRN Reason: NEEDED PER PROVIDER ORDERS Last Admin: 09/19/22 05:03 Dose: 30 ml Tizanidine HCl (Tizanidine 4 Mg Tablet) 4 mg PO QPM [facility] Last Admin: 09/18/22 21:58 Dose: 2 mg Tramadol HCl (Tramadol 50 Mg Tablet) 100 mg PO Q6HR PRN PRN Reason: PAIN Last Admin: 09/18/22 21:22 Dose: 50 mg Alprazolam [Xanax] 0.25 mg PO QPM PRN 09/17/22 Aspirin EC [Ecotrin] 81 mg PO DAILY 09/17/22 Carvedilol [Coreg] 12.5 mg PO BID 09/17/22 Diclofenac Sodium 1% Gel [Voltaren Gel] 1 applic TOP QID PRN 09/17/22 Estrogens, Conjugated Cream [Premarin Cream] 1 applic TOP DAILY 09/17/22 Famotidine [Pepcid] 20 mg PO BID 09/17/22 Furosemide [Lasix] 40 mg PO BID 09/17/22 Lidocaine Patch 5% [Lidoderm Patch] 1 - 2 patch TOP DAILY 09/17/22 Lovastatin 40 mg PO QPM 09/17/22 Omeprazole 40 mg PO BID 09/17/22 Ondansetron Odt [Zofran Odt] 4 mg PO Q8HR PRN 09/17/22 Potassium Chloride 20 meq PO BID 09/17/22 Rivaroxaban [Xarelto] 15 mg PO QDDINNER 09/17/22 Tizanidine HCl 4 mg PO QPM 09/17/22 Tramadol HCl [Ultram] 1 - 2 tab PO Q6HR PRN 09/17/22 predniSONE [Prednisone] 2.5 mg PO DAILY 09/17/22 Objective - Vital Signs/Intake & Output Vital Signs: Vital Signs x48h Temp Pulse Resp BP BP Pulse Ox O2 Flow Rate 09/19/22 09:00 70 14 130/81 H 94 2 09/19/22 08:00 36.6 C 64 11 L 100/88 H 91 L 2 09/19/22 07:00 49 L 13 131/67 H 94 2 09/19/22 06:00 50 L 12 151/78 H 97 2 09/19/22 05:00 64 14 172/78 H 90 L 2 09/19/22 04:00 46 L 11 L 135/69 H 96 2 09/19/22 03:00 50 L 12 125/59 L 98 2 09/19/22 02:00 55 L 14 136/71 H 96 2 Intake & Output: Intake & Output 09/16/22 09/17/22 09/18/22 09/19/22 23:59 23:59 23:59 23:59 Intake Total 1830 2560 930 Output Total 300 550 250 Balance 1530 2010 680 - Objective General Appearance: positive: No acute distress, Alert Eyes Bilateral: positive: PERRL, EOMI ENT: positive: No signs of dehydration Neck: positive: No JVD. negative: Stiff neck Respiratory: positive: No respiratory distress. negative: Wheezes, Rhonchi Cardiovascular: positive: Regular rate & rhythm Abdomen: positive: Non-tender, Nml bowel sounds, No distention Skin: positive: Warm, Dry Extremities: positive: Full ROM, Pedal edema Neurologic/Psychiatric: positive: Oriented x3, Mood/affect nml - Lab Results Fish Bones: 09/19/22 05:00 09/19/22 05:00 Other Labs: Lab Results x24hrs 09/19/22 09/19/22 09/19/22 Range/Units 05:00 05:00 05:00 WBC 9.4 (4.8-10.8) x10^3/uL RBC 2.93 L (4.20-5.40) 10^6/uL Hgb 8.4 L (12.0-16.0) g/dL Hct 27.2 L (37.0-47.0) % MCV 92.8 (81.0-99.0) fL MCH 28.7 (27.0-31.0) pg MCHC 30.9 L (32.0-36.0) g/dL RDW 15.1 H (12.0-15.0) % Plt Count 211 (130-450) 10^3/uL MPV 10.9 H (7.9-10.8) fL Neut # (Auto) 6.9 H (1.5-6.6) 10^3/uL Lymph # (Auto) 1.5 (1.5-3.5) 10^3/uL [place] # (Auto) 0.6 (0.0-1.0) 10^3/uL Eos # (Auto) 0.3 (0.0-0.7) 10^3/uL Baso # (Auto) 0.0 (0.0-0.1) 10^3/uL Absolute Nucleated RBC 0.00 x10^3/uL Nucleated RBC % 0.0 /100WBC VBG pH (7.31-7.41) Ionized Calcium (1.15-1.33) mmol/L Sodium (135-145) mmol/L Potassium (3.5-5.0) mmol/L Chloride (101-111) mmol/L Carbon Dioxide (21-32) mmol/L Anion Gap (6-13) BUN (6-20) mg/dL Creatinine (0.4-1.0) mg/dL Estimated GFR (MDRD) (>89) Glucose (70-100) mg/dL Calcium (8.5-10.3) mg/dL Phosphorus (2.5-4.6) mg/dL Magnesium 1.9 (1.7-2.8) mg/dL Troponin I High Sens (2.3-14.8) ng/L C-Reactive Protein (0-1.0) mg/dL B-Natriuretic Peptide 750 H (5-100) pg/mL Procalcitonin (<0.5) ng/mL 09/19/22 09/19/22 09/19/22 Range/Units 05:00 05:00 05:00 WBC (4.8-10.8) x10^3/uL RBC (4.20-5.40) 10^6/uL Hgb (12.0-16.0) g/dL Hct (37.0-47.0) % MCV (81.0-99.0) fL MCH (27.0-31.0) pg MCHC (32.0-36.0) g/dL RDW (12.0-15.0) % Plt Count (130-450) 10^3/uL MPV (7.9-10.8) fL Neut # (Auto) (1.5-6.6) 10^3/uL Lymph # (Auto) (1.5-3.5) 10^3/uL [place] # (Auto) (0.0-1.0) 10^3/uL Eos # (Auto) (0.0-0.7) 10^3/uL Baso # (Auto) (0.0-0.1) 10^3/uL Absolute Nucleated RBC x10^3/uL Nucleated RBC % /100WBC VBG pH 7.370 (7.31-7.41) Ionized Calcium 1.29 (1.15-1.33) mmol/L Sodium 139 (135-145) mmol/L Potassium 3.7 (3.5-5.0) mmol/L Chloride 104 (101-111) mmol/L Carbon Dioxide 25 (21-32) mmol/L Anion Gap 10.0 (6-13) BUN 29 H (6-20) mg/dL Creatinine 1.5 H (0.4-1.0) mg/dL Estimated GFR (MDRD) 33 L (>89) Glucose 116 H (70-100) mg/dL Calcium 9.2 (8.5-10.3) mg/dL Phosphorus 2.9 (2.5-4.6) mg/dL Magnesium (1.7-2.8) mg/dL Troponin I High Sens (2.3-14.8) ng/L C-Reactive Protein 20.3 H (0-1.0) mg/dL B-Natriuretic Peptide (5-100) pg/mL Procalcitonin 32.34 H* (<0.5) ng/mL 09/18/22 09/18/22 09/18/22 Range/Units 18:36 13:30 05:46 WBC (4.8-10.8) x10^3/uL RBC (4.20-5.40) 10^6/uL Hgb (12.0-16.0) g/dL Hct (37.0-47.0) % MCV (81.0-99.0) fL MCH (27.0-31.0) pg MCHC (32.0-36.0) g/dL RDW (12.0-15.0) % Plt Count (130-450) 10^3/uL MPV (7.9-10.8) fL Neut # (Auto) (1.5-6.6) 10^3/uL Lymph # (Auto) (1.5-3.5) 10^3/uL [place] # (Auto) (0.0-1.0) 10^3/uL Eos # (Auto) (0.0-0.7) 10^3/uL Baso # (Auto) (0.0-0.1) 10^3/uL Absolute Nucleated RBC x10^3/uL Nucleated RBC % /100WBC VBG pH (7.31-7.41) Ionized Calcium (1.15-1.33) mmol/L Sodium (135-145) mmol/L Potassium (3.5-5.0) mmol/L Chloride (101-111) mmol/L Carbon Dioxide (21-32) mmol/L Anion Gap (6-13) BUN (6-20) mg/dL Creatinine (0.4-1.0) mg/dL Estimated GFR (MDRD) (>89) Glucose (70-100) mg/dL Calcium (8.5-10.3) mg/dL Phosphorus (2.5-4.6) mg/dL Magnesium 1.8 (1.7-2.8) mg/dL Troponin I High Sens 9.1 (2.3-14.8) ng/L C-Reactive Protein (0-1.0) mg/dL B-Natriuretic Peptide 359 H (5-100) pg/mL Procalcitonin (<0.5) ng/mL Sepsis Event Note (H) - Evaluation Current Stage of Sepsis: Ruled out Assessment/Plan - Problem List (1) Acute respiratory failure with hypoxia Impression: Sonali was admitted for abrupt onset of SOB that started 09/16 and woke her up from sleep. Her oxygen was in the 60s on room air when EMS arrived and she was started on a nonrebreather. She was put on bipap 100% Fi02 in the ED. When her breathing became less laborious they removed bipap and she was breathing 96% on room air. Since then she has been on 2L of oxygen, I had seen her a few times without her oxygen on while she was in bed and I thought she was consistently on room air but she has been using 2L of oxygen. 09/19 she walked to the bathroom and desatted to 86%. She does not require bipap anymore, so she can be moved from ICU to [facility]. Initial considerations for acute respiratory failure are pneumonia, CHF, interstitial lung disease, pulmonary embolism, arrhythmia, ID. Her viral panel on 09/17 was negative. She had blood cultures drawn, all 4 came back positive for methacillin resistant staph epi under 24 hours. She denies being recently ill, denies vomiting, diarrhea, abdominal pain, cough, chest pain. However, she says that she has had a runny nose which she describes at chronic and she had chills in the evening before she woke up with shortness of breath. She is compliant with her home lasix, 40mg BID. She has chronic anemia, and appears to be at baseline. She has not had a fever. Her repeat blood cultures were drawn in the morning on 09/19, pending results. She's been on telemetry since 09/17 at 19:48 that has been sinus rhythm. Her troponins on 09/18 were 9.1, within normal limits. I discussed the case with Infectious Disease with who recommended a transesophageal echo. She also recommends IV therapy for at least 7 days. If her transesophageal echo is negative for valvular vegetation she can stop after 7 days, if it's positive she will need IV antibiotics for 4-6 weeks. She should still get a transthoracic echo when it is available here. Plan - continue telemetry - continue O2 - continue Lasix 40mg BID - Transthoracic echo to be performed on thursday 09/20 when senior maintenance technician is a vailable. (2) Pneumonia Impression: My primary working diagnosis at this point is pneumonia, however she continues to be very nonspecific in her findings. She presented to the ED with severe hypoxia, with O2 in the 60s on room air. She was stabilized on a Bipap in the ED and recovered with less laborious breathing and has been stable on 2L of oxygen via nasal cannula. She was not feeling ill leading up to her hypoxia, she had a runny nose that day and that is it. Her increased CRP and Procalcitonin are making me lean towards pneumonia. She had an elevated WBC on 09/18 at 12.4, on 09/19 it is down to 9.4. 09/19 neutrophilia is at 6.9. She seems to be res ponding to antibiotic therapy. CXR on 09/17 showed bilateral mixed interstitial and alveolar opacity suggestive of penumonia, less likely aspiration or edema. 09/18 that showed improved aeration, decrease in interstitial prominence. Likely atelectasis at the lung bases. Stable right sided PICC line. She was started on Azithromycin 500mg IV and Vancomycin 1.5gm IV by the admitting provider. She had one dose of each, since then she has received Ceftriaxone 1g IV since 09/17. Plan -Continue O2 supplement -Continue ceftriaxone (3) Congestive heart failure Impression: She has a history of CHF that managed by lasix. She is compliant with her lasix 40mg BID, and had an echo in November 2021 that was normal. Her CXR on 09/18 was read and thought to be more similar to pneumonia than edema. However, her BNP was 354 and she responded to lasix and antibiotics. It is still unclear if the etiology of her SOB this admission is a CHF exacerbation or due to pneumonia. 09/19 her BNP has risen to 750. This rise could be due to a CHF exacerbation or it could be rising in correlation with her renal dysfunction. Since admission her BUN/cr has been 09/17, 39/1.6; 09/18, 33/1.7; 09/19, 29/1.5. Based on her history of labs here, she seems to have had chronic kidney disease stage 3with GFR between(30-69) Plan - continue lasix 40mg BID - Order an Echo, will not be performed until Thursday 09/20 when an senior maintenance technician is available. - monitor I&O (4) Chronic kidney disease, stage 3 Since admission her BUN/cr has been 09/17, 39/1.6; 09/18, 33/1.7; 09/19, 29/1.5. Based on her history of labs here, she seems to have had chronic kidney disease stage 3 with GFR between(30-69). This could be contributing to her elevated BNP. Plan - monitor BMP daily (5) Dyslipidemia Impression: Sonali has a history of dyslipidemia that is managed with lovastatin 40mg qpm. Atorvastatin is on our formulary so she will be managed here with Lipitor 20mg qpm. (6) GERD (gastroesophageal reflux disease) Impression: she has a history of GERD with Tao's esophagus. She is managed with Famotidine 20mg BID, I will continue this while she is here. (7) History of stroke Impression: She has a history of stroke which is managed by Eliquis. Continue 5mg PO BID. (8) Hypertension Impression: Hypertension is managed with Carvedilol 12.5mg PO BID 09/19 am her BP is 130/81. Plan - continue carvedilol but hold for BP <110, hold for pulse <60.
[2022-09-19] MEDS: cefTRIAXone 1 GM in SODIUM CHLORIDE 0.9% MINIBAG 100 ML IV SCH (09:27)
[2022-09-19] MEDS: LIDOCAINE PATCH 5% TOP SCH (09:30)
[2022-09-19] MEDS: SODIUM CHLORIDE FLUSH 0.9% 10 ML SYRINGE IVP SCH ×2 (09:30→16:25)
[2022-09-19] MEDS: POTASSIUM CHLORIDE 20 MEQ TABLET PO SCH ×2 (09:32→21:20)
[2022-09-19] MEDS: AZITHROMYCIN INJ 500 MG in SODIUM CHLORIDE 0.9% 250 ML IV SCH (10:10)
[2022-09-19] MEDS: carvediloL 12.5 MG TABLET PO SCH ×2 (10:14→21:21)
[2022-09-19] MEDS: traMADol 50 MG TABLET PO PRN (16:25)
[2022-09-19] MEDS ORDERED: VANCOMYCIN INJ 1 GM in SODIUM CHLORIDE 0.9% 250 ML IV SCH (17:00)
[2022-09-19] MEDS: CALCIUM CARBONATE CHEW 500 MG TABLET PO PRN (21:20)
[2022-09-19] MEDS: tiZANidine 4 MG TABLET PO SCH (21:20)
[2022-09-19] MEDS: ATORVASTATIN 10 MG TABLET PO SCH (21:27)
[2022-09-20] MEDS: SODIUM CHLORIDE FLUSH 0.9% 10 ML SYRINGE IVP SCH ×3 (01:10→17:33)
[2022-09-20] MEDS ORDERED: VANCOMYCIN INJ 1 GM in SODIUM CHLORIDE 0.9% 250 ML IV SCH (05:00)
[2022-09-20 06:21] LABS: BASOPHILS % (AUTO) 0.5 %; EOSINOPHILS # (AUTO) 0.4 10^3/uL (0.0-0.7); EOSINOPHILS % (AUTO) 4.6 %; HCT - HEMATOCRIT 27.2 % (37.0-47.0); HGB - HEMOGLOBIN 8.3 g/dL (12.0-16.0); LYMPHOCYTES # (AUTO) 1.4 10^3/uL (1.5-3.5); LYMPHOCYTES % (AUTO) 17.9 %; MEAN CORPUSCULAR HEMOGLOBIN 28.1 pg (27.0-31.0); MEAN CORPUSCULAR HGB CONC 30.5 g/dL (32.0-36.0); MEAN CORPUSCULAR VOLUME 92.2 fL (81.0-99.0); MONOCYTES # (AUTO) 0.7 10^3/uL (0.0-1.0); MONOCYTES % (AUTO) 9.1 %; NEUTROPHILS # (AUTO) 5.3 10^3/uL (1.5-6.6); NEUTROPHILS % (AUTO) 67.5 %; PLT - PLATELET COUNT 231 10^3/uL (130-450); RED BLOOD COUNT 2.95 10^6/uL (4.20-5.40); RED CELL DISTRIBUTION WIDTH 14.9 % (12.0-15.0); WHITE BLOOD COUNT 7.9 x10^3/uL (4.8-10.8)
[2022-09-20 06:36] LABS: CALCIUM 9.2 mg/dL (8.5-10.3); CREATININE 1.3 mg/dL (0.4-1.0); CRP - C-REACTIVE PROTEIN 8.2 mg/dL (0-1.0); MAGNESIUM 1.7 mg/dL (1.7-2.8); PHOSPHORUS 2.9 mg/dL (2.5-4.6); POTASSIUM 3.6 mmol/L (3.5-5.0)
[2022-09-20 06:44] LABS: CALCIUM, IONIZED 1.24 mmol/L (1.15-1.33); VBG PH 7.391 (7.31-7.41)
[2022-09-20] MEDS: POTASSIUM CHLORIDE 20 MEQ TABLET PO SCH ×2 (08:35→20:45)
[2022-09-20] MEDS: predniSONE 5 MG TABLET PO SCH (08:35)
[2022-09-20] MEDS: carvediloL 12.5 MG TABLET PO SCH ×2 (08:35→20:46)
[2022-09-20] MEDS: FUROSEMIDE 40 MG TABLET PO SCH ×2 (08:36→20:46)
[2022-09-20] MEDS: FAMOTIDINE 20 MG TABLET PO SCH ×2 (08:36→20:45)
[2022-09-20] MEDS: APIXABAN 5 MG TABLET PO SCH ×2 (08:37→20:46)
[2022-09-20] MEDS: ASPIRIN EC 81 MG TABLET PO SCH (08:38)
[2022-09-20] MEDS: LIDOCAINE PATCH 5% TOP SCH (08:39)
[2022-09-20] MEDS: cefTRIAXone 1 GM in SODIUM CHLORIDE 0.9% MINIBAG 100 ML IV SCH (08:42)
--- NOTE | 2022-09-20 11:03 | PROVIDER PROGRESS NOTE ---
Subjective - Prog Note Date Prog Note Date: 09/20/22 Prog Note Time: 11:00 - Subjective Pt reports feeling: Improved Subjective: Sonali feels okay today, she is very tired when i'm speaking to her. She is upset that she wont be able to leave here to go to her 's appointment at [facility]. She says her only discomfort is her lower back which is chronic. Stable on 2L of oxygen. Current Medications - Current Medications Current Medications: Active Medications Acetaminophen (Acetaminophen 325 Mg Tablet) 650 mg PO Q4HR PRN PRN Reason: Pain 1 to 4, or Fever Last Admin: 09/18/22 09:00 Dose: 650 mg Alprazolam (Alprazolam 0.25 Mg Tablet) 0.25 mg PO QPM PRN PRN Reason: Insomnia Apixaban (Apixaban 5 Mg Tablet) 5 mg PO BID [facility] Last Admin: 09/20/22 08:37 Dose: 5 mg Aspirin (Aspirin Ec 81 Mg Tablet) 81 mg PO DAILY [facility] Last Admin: 09/20/22 08:38 Dose: 81 mg Atorvastatin Calcium (Atorvastatin 10 Mg Tablet) 20 mg PO QPM [facility] Last Admin: 09/19/22 21:27 Dose: 20 mg Calcium Carbonate/Glycine (Calcium Carbonate Chew 500 Mg Tablet) 500 mg PO BID PRN PRN Reason: INDIGESTION Last Admin: 09/19/22 21:20 Dose: 500 mg Carvedilol (Carvedilol 12.5 Mg Tablet) 12.5 mg PO BID [facility] Last Admin: 09/20/22 08:35 Dose: 12.5 mg Diclofenac Sodium (Diclofenac Sodium 1% Gel 50 Gm Tube) 4 gm TOP QID PRN PRN Reason: PAIN Famotidine (Famotidine 20 Mg Tablet) 20 mg PO BID [facility] Last Admin: 09/20/22 08:36 Dose: 20 mg Furosemide (Furosemide 40 Mg Tablet) 40 mg PO BID [facility] Last Admin: 09/20/22 08:36 Dose: 40 mg Ceftriaxone Sodium 1 gm/ (Sodium Chloride) 100 mls @ 200 mls/hr IV DAILY [facility] Last Admin: 09/20/22 08:42 Dose: 200 mls/hr Vancomycin HCl 1 gm/ Sodium (Chloride) 250 mls @ 167 mls/hr IV Q36H [facility] Last Infusion: 09/19/22 18:05 Dose: Infused Lidocaine (Lidocaine Patch 5%) 1 patch TOP DAILY [facility] Last Admin: 09/20/22 08:39 Dose: 1 patch Ondansetron HCl (Ondansetron 4 Mg/2 Ml Vial) 4 mg IVP Q6HR PRN PRN Reason: Nausea / Vomiting Last Admin: 09/17/22 21:32 Dose: 4 mg Ondansetron HCl (Ondansetron Odt 4 Mg Tablet) 4 mg PO Q8HR PRN PRN Reason: Nausea / Vomiting Potassium Chloride (Potassium Chloride 20 Meq Tablet) 20 meq PO BID [facility] Last Admin: 09/20/22 08:35 Dose: 20 meq Prednisone (Prednisone 5 Mg Tablet) 2.5 mg PO DAILYWM [facility] Last Admin: 09/20/22 08:35 Dose: 2.5 mg Sodium Chloride (Sodium Chloride Flush 0.9% 10 Ml Syringe) 10 ml IVP 0100,0900,1700 [facility] Last Admin: 09/20/22 01:10 Dose: 10 ml Sodium Chloride (Sodium Chloride Flush 0.9% 10 Ml Syringe) 10 ml IVP PRN PRN PRN Reason: NEEDED PER PROVIDER ORDERS Last Admin: 09/19/22 05:03 Dose: 30 ml Tizanidine HCl (Tizanidine 4 Mg Tablet) 4 mg PO QPM [facility] Last Admin: 09/19/22 21:20 Dose: 4 mg Tramadol HCl (Tramadol 50 Mg Tablet) 100 mg PO Q6HR PRN PRN Reason: PAIN Last Admin: 09/19/22 16:25 Dose: 50 mg Alprazolam [Xanax] 0.25 mg PO QPM PRN 09/17/22 Aspirin EC [Ecotrin] 81 mg PO DAILY 09/17/22 Carvedilol [Coreg] 12.5 mg PO BID 09/17/22 Diclofenac Sodium 1% Gel [Voltaren Gel] 1 applic TOP QID PRN 09/17/22 Estrogens, Conjugated Cream [Premarin Cream] 1 applic TOP DAILY 09/17/22 Famotidine [Pepcid] 20 mg PO BID 09/17/22 Furosemide [Lasix] 40 mg PO BID 09/17/22 Lidocaine Patch 5% [Lidoderm Patch] 1 - 2 patch TOP DAILY 09/17/22 Lovastatin 40 mg PO QPM 09/17/22 Omeprazole 40 mg PO BID 09/17/22 Ondansetron Odt [Zofran Odt] 4 mg PO Q8HR PRN 09/17/22 Potassium Chloride 20 meq PO BID 09/17/22 Rivaroxaban [Xarelto] 15 mg PO QDDINNER 09/17/22 Tizanidine HCl 4 mg PO QPM 09/17/22 Tramadol HCl [Ultram] 1 - 2 tab PO Q6HR PRN 09/17/22 predniSONE [Prednisone] 2.5 mg PO DAILY 09/17/22 Objective - Vital Signs/Intake & Output Reviewed Vital Signs: Yes Vital Signs: Vital Signs x48h Temp Pulse Resp BP BP Pulse Ox O2 Flow Rate 09/20/22 08:16 37.2 C 71 18 165/90 H 97 2 09/20/22 04:07 36.7 C 76 16 152/73 H 93 2 Intake & Output: Intake & Output 09/17/22 09/18/22 09/19/22 09/20/22 23:59 23:59 23:59 23:59 Intake Total 1830 2560 2490 240 Output Total 573 280 1814 200 Balance 1530 2010 1365 40 - Objective General Appearance: positive: No acute distress, Alert Eyes Bilateral: positive: PERRL, EOMI, Conjunctivae nml ENT: positive: No signs of dehydration Neck: positive: No JVD. negative: Lymphadenopathy (R), Lymphadenopathy (L), Stiff neck Respiratory: positive: Chest non-tender, No respiratory distress, Other (upper airway bronchial breathsounds on the anterior chest. Lower lung stein have rales bilaterally.) Cardiovascular: positive: Regular rate & rhythm Abdomen: positive: Non-tender, Nml bowel sounds, No distention Skin: positive: Warm, Dry Extremities: positive: Full ROM, Nml appearance, No pedal edema - Lab Results Fish Bones: 09/20/22 05:58 09/20/22 05:58 Other Labs: Lab Results x24hrs 09/20/22 09/20/22 09/20/22 Range/Units 05:58 05:58 05:58 WBC 7.9 (4.8-10.8) x10^3/uL RBC 2.95 L (4.20-5.40) 10^6/uL Hgb 8.3 L (12.0-16.0) g/dL Hct 27.2 L (37.0-47.0) % MCV 92.2 (81.0-99.0) fL MCH 28.1 (27.0-31.0) pg MCHC 30.5 L (32.0-36.0) g/dL RDW 14.9 (12.0-15.0) % Plt Count 231 (130-450) 10^3/uL MPV 11.0 H (7.9-10.8) fL Neut # (Auto) 5.3 (1.5-6.6) 10^3/uL Lymph # (Auto) 1.4 L (1.5-3.5) 10^3/uL Weld # (Auto) 0.7 (0.0-1.0) 10^3/uL Eos # (Auto) 0.4 (0.0-0.7) 10^3/uL Baso # (Auto) 0.0 (0.0-0.1) 10^3/uL Absolute Nucleated RBC 0.00 x10^3/uL Nucleated RBC % 0.0 /100WBC VBG pH 7.391 (7.31-7.41) Ionized Calcium 1.24 (1.15-1.33) mmol/L Sodium 139 (135-145) mmol/L Potassium 3.6 (3.5-5.0) mmol/L Chloride 101 (101-111) mmol/L Carbon Dioxide 29 (21-32) mmol/L Anion Gap 9.0 (6-13) BUN 22 H (6-20) mg/dL Creatinine 1.3 H (0.4-1.0) mg/dL Estimated GFR (MDRD) 39 L (>89) Glucose 94 (70-100) mg/dL Calcium 9.2 (8.5-10.3) mg/dL Phosphorus 2.9 (2.5-4.6) mg/dL Magnesium 1.7 (1.7-2.8) mg/dL C-Reactive Protein 8.2 H (0-1.0) mg/dL Procalcitonin (<0.5) ng/mL Stl C. diff Tox B Gene (NEGATIVE) 09/20/22 09/19/22 Range/Units 05:58 23:40 WBC (4.8-10.8) x10^3/uL RBC (4.20-5.40) 10^6/uL Hgb (12.0-16.0) g/dL Hct (37.0-47.0) % MCV (81.0-99.0) fL MCH (27.0-31.0) pg MCHC (32.0-36.0) g/dL RDW (12.0-15.0) % Plt Count (130-450) 10^3/uL MPV (7.9-10.8) fL Neut # (Auto) (1.5-6.6) 10^3/uL Lymph # (Auto) (1.5-3.5) 10^3/uL Weld # (Auto) (0.0-1.0) 10^3/uL Eos # (Auto) (0.0-0.7) 10^3/uL Baso # (Auto) (0.0-0.1) 10^3/uL Absolute Nucleated RBC x10^3/uL Nucleated RBC % /100WBC VBG pH (7.31-7.41) Ionized Calcium (1.15-1.33) mmol/L Sodium (135-145) mmol/L Potassium (3.5-5.0) mmol/L Chloride (101-111) mmol/L Carbon Dioxide (21-32) mmol/L Anion Gap (6-13) BUN (6-20) mg/dL Creatinine (0.4-1.0) mg/dL Estimated GFR (MDRD) (>89) Glucose (70-100) mg/dL Calcium (8.5-10.3) mg/dL Phosphorus (2.5-4.6) mg/dL Magnesium (1.7-2.8) mg/dL C-Reactive Protein (0-1.0) mg/dL Procalcitonin 17.30 H* (<0.5) ng/mL Stl C. diff Tox B Gene NEGATIVE (NEGATIVE) Sepsis Event Note (H) - Evaluation Current Stage of Sepsis: Ruled out Assessment/Plan - Problem List (1) Bacteremia due to methicillin resistant Staphylococcus epidermidis Impression: Sonali was admitted for abrupt onset of SOB that started in the middle of the night 09/16 with oxygen in the 60s on room air. She was on Bipap briefly in the ED, was able to be removed within a few hours after her breathing became less laborious and has been stable on 2L of oxygen at 96%. Initial considerations for her acute respiratory failure were pneumonia, CHF, interstitial lung disease, PE, arrhythmia, or [place]. Viral panel was negative on 09/17. Starting on 09/17 in the ED she was given 500mg azithromycin and she was given 3 doses in total for empiric therapy and 1 dose of ceftriaxone 1gm qd in the ED which has been continued. She had blood cultures drawn on 09/17 that was positive for staphylococcus epidermis in all 4 bottles with growth under 24 hours. This amount of growth so early led me to believe this is a true bacteremia due MRSE and not a contamination. I spoke with Infectious Disease at on 09/19 who agreed that it is most likely a true infection. She has not had any ports, IVs, dental procedures, or artificial hardware in her body prior to her admission to us. As such, infectious disease and I agreed that she will need a transesophageal echo to evaluate for valvular vegetations as a possible source of bacteremia. If she has a normal echo, she should only need antibiotic therapy for a total of 7 days. If she has vegetation she will need 6 weeks of IV therapy. We do not have the capability for a transesophageal echo so I am working on getting her transportation to have this performed somewhere else and then come back here. 09/18 repeat blood cultures were ordered. 09/19 preliminary results are no growth after one day. Vancomycin was started 09/19 1g q36h Cephtriaxone was started 09/17 1g IV qd Plan - montitor repeat blood cultures when they are resulted - continue vancomycin and cephtriaxone - transesophageal echo when available - transthoracic echo when available (production control technologist only works Tuesday - here. will plan for echo 09/21/22 if possible.) (2) Pneumonia Impression: My primary working diagnosis at this point is pneumonia, however she continues to be very nonspecific in her findings. She presented to the ED with severe hypoxia, with O2 in the 60s on room air. She was stabilized on a Bipap in the ED and recovered with less laborious breathing and has been stable on 2L of oxygen via nasal cannula. She was not feeling ill leading up to her hypoxia, she had a runny nose that day and that is it. Her increased CRP and Procalcitonin are making me lean towards pneumonia. She had an elevated WBC on 09/18 at 12.4, on 09/19 it is down to 9.4. 09/19 neutrophilia is at 6.9. She seems to be responding to antibiotic therapy. CXR on 09/17 showed bilateral mixed interstitial and alveolar opacity suggestive of penumonia, less likely aspiration or edema. 09/18 that showed improved aeration, decrease in interstitial prominence. Likely atelectasis at the lung bases. Stable right sided PICC line. She was started on Azithromycin 500mg IV for 3 doses and Cephtriaxone 1g for empiric therapy. She has continued cephtriaxone 1g qd since 09/17 and started vancomycin 1g IV q36h on 09/19. Her procalcitonin is improving. 09/19: 32.34; 09/20: 17.30 WBC count is within normal limits 09/17: 5.8; 09/18: 12.4; 09/19: 9.4; 09/20: 7.8 Neutrophils are within normal limits 09/20. Plan -Continue O2 supplement -Continue ceftriaxone and vancomycin -monitor CBC & BMP daily (3) Interstitial pneumonitis Impression: History of interstitial pneumonitis at the base of her lungs. Rales heard at the bases bilaterally, this is likely contributing to her hypoxia. She is stable on 2L oxygen at 97. She is on a home dose of prednisone 2.5mg PO qd which she has been receiving here as well. Plan - continue prednisone - monitor O2 (4) Acute respiratory failure with hypoxia Impression: Sonali was admitted for abrupt onset of SOB that started 09/16 and woke her up from sleep. Her oxygen was in the 60s on room air when EMS arrived and she was started on a nonrebreather. She was put on bipap 100% Fi02 in the ED. When her breathing became less laborious they removed bipap and she was breathing 96% on room air. Since then she has been on 2L of oxygen, I had seen her a few times without her oxygen on while she was in bed and I thought she was consistently on room air but she has been using 2L of oxygen. 09/19 she walked to the bathroom and desatted to 86%. She was moved to [facility] on 09/19 when her respiratory failure resolved 09/20 continues to be stable on 2L oxygen at 97%. (5) Congestive heart failure Impression: She has a history of CHF that is managed by lasix. She is compliant with her lasix 40mg BID, and had an echo in November 2021 that was normal. Her CXR on 09/18 was read and thought to be more similar to pneumonia than edema. However, her BNP was 354 and she responded to lasix and antibiotics. It is still unclear if the etiology of her SOB this admission is a CHF exacerbation or due to pneumonia. 09/19 her BNP frank to 750. This rise could be due to a CHF exacerbation or it could be rising in correlation with her renal dysfunction. Since admission her BUN/cr has been 09/17, 39/1.6; 09/18, 33/1.7; 09/19, 29/1.5. Based on her history of labs here, she seems to have had chronic kidney disease stage 3with GFR between(30-69) Plan - continue lasix 40mg BID - Order an Echo, will not be performed until Friday 09/21 when an health tech is available. - monitor I&O (6) Dyslipidemia Impression: Sonali has a history of dyslipidemia that is managed with lovastatin 40mg qpm. Atorvastatin is on our formulary so she will be managed here with Lipitor 20mg qpm. (7) GERD (gastroesophageal reflux disease) Impression: she has a history of GERD with Tao's esophagus. She is managed with Famotidine 20mg BID, I will continue this while she is here. (8) Chronic kidney disease Impression: Based on her history of labs here, she seems to have had chronic kidney disease stage 3 with GFR between(30-69). This could be contributing to her elevated BNP. Since admission her BUN/cr has been 09/17: 39/1.6; 09/18: 33/1.7; 09/19: 29/1.5, 09/20: 22/1.3. Plan - monitor BMP daily Qualifiers: Chronic kidney disease stage: stage 3 (moderate) (9) History of stroke Impression: She has a history of stroke which is managed by Eliquis. Continue 5mg PO BID. (10) Hypertension Impression: Hypertension is managed with Carvedilol 12.5mg PO BID. Allergy to BETY inhibitors is noted. 09/19 am her BP is 130/81. 09/20 am BP is 152/73 Plan - continue carvedilol
[2022-09-20] MEDS: VANCOMYCIN INJ 1 GM in SODIUM CHLORIDE 0.9% 250 ML IV SCH (16:48)
[2022-09-20] MEDS: CALCIUM CARBONATE CHEW 500 MG TABLET PO PRN ×2 (16:56→20:51)
[2022-09-20] MEDS: CHOLECALCIFEROL 25 MCG TABLET PO SCH (17:33)
[2022-09-20] MEDS: MULTIVITAMIN W/MINERALS TABLET PO SCH (17:33)
[2022-09-20] MEDS: tiZANidine 4 MG TABLET PO SCH (20:45)
[2022-09-20] MEDS: ATORVASTATIN 10 MG TABLET PO SCH (20:45)
[2022-09-20] MEDS: ACETAMINOPHEN 325 MG TABLET PO PRN (20:51)
[2022-09-21] MEDS: SODIUM CHLORIDE FLUSH 0.9% 10 ML SYRINGE IVP SCH ×4 (00:45→23:37)
[2022-09-21] MEDS: ACETAMINOPHEN 325 MG TABLET PO PRN ×2 (05:00→23:39)
[2022-09-21] MEDS: CALCIUM CARBONATE CHEW 500 MG TABLET PO PRN (05:06)
[2022-09-21 05:50] LABS: BASOPHILS % (AUTO) 0.7 %; EOSINOPHILS # (AUTO) 0.4 10^3/uL (0.0-0.7); EOSINOPHILS % (AUTO) 6.1 %; HCT - HEMATOCRIT 29.8 % (37.0-47.0); HGB - HEMOGLOBIN 9.3 g/dL (12.0-16.0); LYMPHOCYTES # (AUTO) 1.5 10^3/uL (1.5-3.5); LYMPHOCYTES % (AUTO) 25.5 %; MEAN CORPUSCULAR HEMOGLOBIN 28.6 pg (27.0-31.0); MEAN CORPUSCULAR HGB CONC 31.2 g/dL (32.0-36.0); MEAN CORPUSCULAR VOLUME 91.7 fL (81.0-99.0); MEAN PLATELET VOLUME 10.6 fL (7.9-10.8); MONOCYTES # (AUTO) 0.9 10^3/uL (0.0-1.0); MONOCYTES % (AUTO) 15.7 %; NEUTROPHILS % (AUTO) 51.8 %; PLT - PLATELET COUNT 255 10^3/uL (130-450); RED BLOOD COUNT 3.25 10^6/uL (4.20-5.40); RED CELL DISTRIBUTION WIDTH 14.6 % (12.0-15.0); WHITE BLOOD COUNT 5.7 x10^3/uL (4.8-10.8)
[2022-09-21 06:06] LABS: CALCIUM 9.7 mg/dL (8.5-10.3); CREATININE 1.3 mg/dL (0.4-1.0); CRP - C-REACTIVE PROTEIN 3.7 mg/dL (0-1.0); MAGNESIUM 1.7 mg/dL (1.7-2.8); POTASSIUM 3.3 mmol/L (3.5-5.0)
[2022-09-21] MEDS: ASPIRIN EC 81 MG TABLET PO SCH (08:12)
[2022-09-21] MEDS: MULTIVITAMIN W/MINERALS TABLET PO SCH (08:12)
[2022-09-21] MEDS: predniSONE 5 MG TABLET PO SCH (08:12)
[2022-09-21] MEDS: carvediloL 12.5 MG TABLET PO SCH ×2 (08:14→20:36)
[2022-09-21] MEDS: CHOLECALCIFEROL 25 MCG TABLET PO SCH (08:14)
[2022-09-21] MEDS: POTASSIUM CHLORIDE 20 MEQ TABLET PO SCH ×2 (08:16→20:39)
[2022-09-21] MEDS: FUROSEMIDE 40 MG TABLET PO SCH ×2 (08:18→16:27)
[2022-09-21] MEDS: APIXABAN 5 MG TABLET PO SCH ×2 (08:18→20:39)
[2022-09-21] MEDS: FAMOTIDINE 20 MG TABLET PO SCH (08:18)
[2022-09-21] MEDS: cefTRIAXone 1 GM in SODIUM CHLORIDE 0.9% MINIBAG 100 ML IV SCH (08:19)
[2022-09-21] MEDS: LIDOCAINE PATCH 5% TOP SCH (08:19)
--- NOTE | 2022-09-21 14:31 | PROVIDER PROGRESS NOTE ---
Assessment/Plan - Problem List (1) Bacteremia due to methicillin resistant Staphylococcus epidermidis Assessment/Plan: Sonali was admitted for abrupt onset of SOB that started in the middle of the night 09/16 with oxygen saturation in the 60s on room air. She was on Bipap briefly in the ED, was able to be removed within a few hours after her breathing became less laborious and stable on 2L of oxygen at 96%. Initial considerations for her acute respiratory failure were pneumonia, CHF, interstitial lung disease, PE, arrhythmia, or NM. Viral panel was negative on 09/17. Starting on 09/17 in the ED she was given 500mg azithromycin and ceftriaxone 1gm which have been continued. She had blood cultures drawn on 09/17 that became positive for staphylococcus epidermis in all 4 bottles with growth under 24 hours. This amount of growth so quickly, points to a true bacteremia due to MRSE and not a contamination. The last Hospitalist spoke with Infectious Disease at on 09/19 who agreed that it is most likely a true infection. She has not had any ports, IVs, dental procedures, or artificial hardware in her body prior to her admission to us. As such, infectious disease advised that she will need a transesophageal echo to evaluate for valvular vegetations as a possible source of bacteremia. If she has a normal echo, she should only need antibiotic therapy for a total of 7-10 days. If she has vegetation, she will need 6 weeks of IV therapy. She had her Echo today and vegetations could not be ruled out. We do not have the capability for a transesophageal echo here, so we are working on getting her transportation to have this performed somewhere else and then come back here. 09/18 repeat blood cultures were ordered. 09/19 preliminary results are no growth after one day. Vancomycin was started 09/19 1g q36h Cephtriaxone was started 09/17 1g IV qd Plan - monitor repeat blood cultures when they are resulted - continue vancomycin and cephtriaxone - transesophageal echo now planned when available, I have called [facility] [place] - will need determination of what antibx and duration, after RANJAN done (2) Pneumonia Impression: The working diagnosis at this point is pneumonia, however she continues to be very nonspecific in her findings. She presented to the ED with severe hypoxia, with O2 sat in the 60s on room air. She was stabilized on a Bipap in the ED and recovered with less laborious breathing and has been stable on 2L of oxygen via nasal cannula. She was not feeling ill leading up to her hypoxia, she had a runny nose that day and that is it. Her increased CRP and Procalcitonin are making us lean towards suspecting pneumonia. She had an elevated WBC on 09/18 at 12.4, on 09/19 it is down to 9.4. 09/19 neutrophilia is at 6.9. She seems to be responding to antibiotic therapy. CXR on 09/17 showed bilateral mixed interstitial and alveolar opacity suggestive of penumonia, less likely aspiration or edema. 09/18 that showed improved aeration, decrease in interstitial prominence. Likely atelectasis at the lung bases. Stable right sided PICC line. She was started on Azithromycin 500mg IV for 3 doses and Cephtriaxone 1g for empiric therapy. She has continued cephtriaxone 1g qd since 09/17 and started vancomycin 1g IV q36h on 09/19. Her procalcitonin is improving. 32.34>> 17.30, and CRP improving 20>> 8>> and is 3 today. 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 Rales heard at the bases bilaterally, this is likely contributing to her hypoxia. She is stable on 2L oxygen, with sats at 97%. She is on a home dose of prednisone 2.5mg PO qd which she has been receiving here as well. Plan: - continue prednisone - monitor O2 (4) Acute respiratory failure with hypoxia Impression: Sonali was admitted for abrupt onset of SOB that started 09/16 and woke her up from sleep. Her oxygen was in the 60s on room air when EMS arrived and she was started on a nonrebreather. She was put on bipap 100% Fi02 in the ED. When her breathing became less laborious they removed bipap and she was saturating 96% on 2L of oxygen. The last Hospitalist had seen her a few times without her oxygen on while she was at rest in bed 09/19 she walked to the bathroom and desaturated to 86%. She was moved to [facility] on 09/19 Plan: continue suppl O2, target sats are at least 90-92% (5) Congestive heart failure Impression: She has a history of CHF that is managed by lasix. She is compliant with her lasix 40mg BID, and had an echo in November 2021 that was normal. Her CXR on 09/18 was read and thought to be more similar to pneumonia than edema. However, her BNP was 354 and she responded to lasix and antibiotics. It is still unclear if the etiology of her SOB this admission is a CHF exacerbation or due to pneumonia. 09/19 her BNP frank to 750. This rise could be due to a CHF exacerbation or it could be rising in correlation with her renal dysfunction. (Since admission her BUN/cr has been 39/1.6>> 33/1.7>> 29/1.5. Based on her history of labs here, she seems to have had chronic kidney disease stage with GFR between 30-69). Today her Echo was done and showed a preserved LVEF of 60% Plan - continue lasix 40mg BIDdiuretic dosing - monitor I&O (6) Dyslipidemia Impression: Sonali has a history of dyslipidemia that is managed with lovastatin 40mg qpm. Plan: She is managed here with Lipitor 20mg qpm, since Lovastatin is not on hosp formulary.. (7) GERD (gastroesophageal reflux disease) Impression: She has a history of GERD with Tao's esophagus. Plan: She is managed with Famotidine 20mg BID, continuing this while she is here. (8) Chronic kidney disease Impression: Since admission her BUN/cr has been 39/1.6>> 33/1.7>> 29/1.5Based on her history of labs here, she seems to have had chronic kidney disease stage 3 with GFR between(30-69). This could be contributing to her elevated BNP. Plan: - avoid nephrotoxins - monitor BMP daily Qualifiers: Chronic kidney disease stage: stage 3 (moderate) (9) History of stroke Impression: She has a history of stroke with residual L sided mild weakness, and is managed by being on Eliquis. Continue Eliquis 5mg PO BID. (10) Hypertension Impression: Hypertension is managed with Carvedilol 12.5mg PO BID. Allergy to BETY inhibitors is noted. Plan: - continue carvedilol - Current Meds Current Meds: Current Medications Generic Name Dose Route Start Last Admin Trade Name Nicola PRN Reason Stop Dose Admin Acetaminophen 650 mg 09/17/22 05:22 09/21/22 05:00 Acetaminophen 325 Mg Tablet PO 650 mg Q4HR PRN Administration Pain 1 to 4, or Fever Apixaban 5 mg 09/17/22 21:00 09/21/22 08:18 Apixaban 5 Mg Tablet PO 5 mg BID JENNYFER Administration Aspirin 81 mg 09/18/22 09:00 09/21/22 08:12 Aspirin Ec 81 Mg Tablet PO 81 mg DAILY JENNYFER Administration Atorvastatin Calcium 20 mg 09/17/22 21:00 09/20/22 20:45 Atorvastatin 10 Mg Tablet PO 20 mg QPM JENNYFER Administration Calcium Carbonate/Glycine 500 mg 09/19/22 20:57 09/21/22 05:06 Calcium Carbonate Chew 500 Mg Tablet PO 500 mg BID PRN Administration INDIGESTION Carvedilol 12.5 mg 09/18/22 13:13 09/21/22 08:14 Carvedilol 12.5 Mg Tablet PO 12.5 mg BID JENNYFER Administration Cholecalciferol 50 mcg 09/20/22 17:00 09/21/22 08:14 Cholecalciferol 25 Mcg Tablet PO 50 mcg DAILY JENNYFER Administration Furosemide 40 mg 09/17/22 21:00 09/21/22 08:18 Furosemide 40 Mg Tablet PO 40 mg BID JENNYFER Administration Ceftriaxone Sodium 1 gm/ 100 mls @ 200 mls/hr 09/17/22 09:00 09/21/22 09:20 Sodium Chloride IV Infused DAILY JENNYFER Infusion Vancomycin HCl 1 gm/ Sodium 250 mls @ 167 mls/hr 09/20/22 16:30 09/20/22 18:32 Chloride IV Infused Q24H JENNYFER Infusion Lidocaine 1 patch 09/18/22 09:00 09/21/22 08:19 Lidocaine Patch 5% TOP 1 patch DAILY JENNYFER Administration Multivitamins/Minerals 1 tab 09/20/22 17:00 09/21/22 08:12 Multivitamin W/Minerals Tablet PO 1 tab DAILYWM JENNYFER Administration Ondansetron HCl 4 mg 09/17/22 05:22 09/17/22 21:32 Ondansetron 4 Mg/2 Ml Vial IVP 4 mg Q6HR PRN Administration Nausea / Vomiting Potassium Chloride 20 meq 09/17/22 21:00 09/21/22 08:16 Potassium Chloride 20 Meq Tablet PO 20 meq BID JENNYFER Administration Prednisone 2.5 mg 09/18/22 08:00 09/21/22 08:12 Prednisone 5 Mg Tablet PO 2.5 mg DAILYWM JENNYFER Administration Sodium Chloride 10 ml 09/17/22 09:00 09/21/22 08:19 Sodium Chloride Flush 0.9% 10 Ml Syringe IVP 10 ml 0100,0900,1700 JENNYFER Administration Sodium Chloride 10 ml 09/17/22 05:22 09/19/22 05:03 Sodium Chloride Flush 0.9% 10 Ml Syringe IVP 30 ml PRN PRN Administration NEEDED PER PROVIDER ORDERS Tizanidine HCl 4 mg 09/17/22 21:00 09/20/22 20:45 Tizanidine 4 Mg Tablet PO 4 mg QPM JENNYFER Administration Tramadol HCl 100 mg 09/17/22 14:42 09/19/22 16:25 Tramadol 50 Mg Tablet PO 50 mg Q6HR PRN Administration PAIN - Lab Result Fish Bone Diagrams: 09/21/22 05:30 09/21/22 05:30 - Additional Planning My Orders: My Active Orders 09/21/22 21:00 Patient Own Med [Patient Own Medication] 2 each PO BID 09/22/22 16:00 VANCOMYCIN TROUGH [CHEM] Timed Subjective - Subjective Patient Reports: Feeling Better, Other (Is admittedly nervous about getting a RANJAN) Objective Vital Signs: Vital Signs - 24 hr 09/20/22 09/20/22 09/21/22 15:43 20:20 00:09 Temperature 37.1 C 36.6 C Heart Rate [ 64 62 Brachial] Respiratory 16 16 Rate Blood Pressure 154/61 H [Left Brachial artery] Blood Pressure 115/78 [Left Radial artery] Blood Pressure [Right Radial artery] O2 Saturation 98 94 If not protocol 2 2 2 : Oxygen Flow, liters/minute 09/21/22 07:33 Temperature 36.6 C Heart Rate [ 73 Brachial] Respiratory 16 Rate Blood Pressure [Left Brachial artery] Blood Pressure [Left Radial artery] Blood Pressure 152/76 H [Right Radial artery] O2 Saturation 94 If not protocol 2 : Oxygen Flow, liters/minute Oxygen O2 Source Nasal cannula I&O (Last 24 Hrs): Intake and Output Totals x24h 09/19/22 09/20/22 09/21/22 23:59 23:59 23:59 Intake Total 2490 1078 320 Output Total 1128 6145 100 Balance 1365 -197 220 General: Alert, Oriented x3 HEENT: Mucous membr. moist/pink, Other (wearing O2 per n.c.) Neuro: Alert, Other (L hand 4/5 strength, L leg also weaker (per pt, after stroke years ago).) Cardiovascular: Regular rate, No murmurs Respiratory: No respiratory distress (on O2 per n.c.), Rales (at both bases) Extremities: No clubbing, No edema - Results Results: Laboratory Results WBC 5.7 x10^3/uL (4.8-10.8) 09/21/22 05:30 RBC 3.25 10^6/uL (4.20-5.40) L 09/21/22 05:30 Hgb 9.3 g/dL (12.0-16.0) L 09/21/22 05:30 Hct 29.8 % (37.0-47.0) L 09/21/22 05:30 MCV 91.7 fL (81.0-99.0) 09/21/22 05:30 MCH 28.6 pg (27.0-31.0) 09/21/22 05:30 MCHC 31.2 g/dL (32.0-36.0) L 09/21/22 05:30 RDW 14.6 % (12.0-15.0) 09/21/22 05:30 Plt Count 255 10^3/uL (130-450) 09/21/22 05:30 MPV 10.6 fL (7.9-10.8) 09/21/22 05:30 Neut # (Auto) 3.0 10^3/uL (1.5-6.6) 09/21/22 05:30 Lymph # (Auto) 1.5 10^3/uL (1.5-3.5) 09/21/22 05:30 [place] # (Auto) 0.9 10^3/uL (0.0-1.0) 09/21/22 05:30 Eos # (Auto) 0.4 10^3/uL (0.0-0.7) 09/21/22 05:30 Baso # (Auto) 0.0 10^3/uL (0.0-0.1) 09/21/22 05:30 Absolute Nucleated RBC 0.00 x10^3/uL 09/21/22 05:30 Nucleated RBC % 0.0 /100WBC 09/21/22 05:30 Bld Gas Analysis Time 03109/17/22 03:12 Sample Site RIGHT BRACHIAL 09/17/22 03:12 ABG pH 7.37 (7.35-7.45) 09/17/22 03:12 ABG pCO2 28 mmHg (34-45) L 09/17/22 03:12 ABG pO2 76 mmHg (80-100) L 09/17/22 03:12 ABG HCO3 15.5 mmol/L (22.0-26.0) L 09/17/22 03:12 ABG Total CO2 16.4 MMOL/L (21.0-29.0) L 09/17/22 03:12 ABG O2 Saturation 94 % (94-98) 09/17/22 03:12 ABG Base Excess -8.4 mmol/L (-2.0-3.0) L 09/17/22 03:12 Jt Test NOT APPLICABLE 09/17/22 03:12 VBG pH 7.391 (7.31-7.41) 09/20/22 05:58 Ionized Calcium 1.24 mmol/L (1.15-1.33) 09/20/22 05:58 O2 Delivery Device BiPAP 09/17/22 03:12 Vent Mode SYNCHRONOUS/TIMES 09/17/22 03:12 FiO2 100.00 09/17/22 03:12 Pressure Support Vent 7 cmH2O 09/17/22 03:12 EPAP 5 cmH2O 09/17/22 03:12 IPAP 12 cmH2O 09/17/22 03:12 Sodium 139 mmol/L (135-145) 09/21/22 05:30 Potassium 3.3 mmol/L (3.5-5.0) L 09/21/22 05:30 Chloride 99 mmol/L (101-111) L 09/21/22 05:30 Carbon Dioxide 30 mmol/L (21-32) 09/21/22 05:30 Anion Gap 10.0 (6-13) 09/21/22 05:30 BUN 19 mg/dL (6-20) 09/21/22 05:30 Creatinine 1.3 mg/dL (0.4-1.0) H 09/21/22 05:30 Estimated GFR (MDRD) 39 (>89) L 09/21/22 05:30 Glucose 125 mg/dL (70-100) H 09/21/22 05:30 Lactic Acid 1.4 mmol/L (0.5-2.2) 09/17/22 21:14 Calcium 9.7 mg/dL (8.5-10.3) 09/21/22 05:30 Phosphorus 2.9 mg/dL (2.5-4.6) 09/20/22 05:58 Magnesium 1.7 mg/dL (1.7-2.8) 09/21/22 05:30 Total Bilirubin 0.6 mg/dL (0.2-1.0) 09/17/22 02:51 AST 19 IU/L (10-42) 09/17/22 02:51 ALT 14 IU/L (10-60) 09/17/22 02:51 Alkaline Phosphatase 88 IU/L (42-121) 09/17/22 02:51 Troponin I High Sens 9.1 ng/L (2.3-14.8) 09/18/22 13:30 C-Reactive Protein 3.7 mg/dL (0-1.0) H 09/21/22 05:30 B-Natriuretic Peptide 750 pg/mL (5-100) H 09/19/22 05:00 Total Protein 6.9 g/dL (6.7-8.2) 09/17/22 02:51 Albumin 3.7 g/dL (3.2-5.5) 09/17/22 02:51 Globulin 3.2 g/dL (2.1-4.2) 09/17/22 02:51 Albumin/Globulin Ratio 1.2 (1.0-2.2) 09/17/22 02:51 Procalcitonin 17.30 ng/mL (<0.5) H* 09/20/22 05:58 Nasal Adenovirus (PCR) NOT DETECTED 09/17/22 03:20 Nasal B. parapertussis DNA (PCR) NOT DETECTED 09/17/22 03:20 Nasal Coronavir 229E PCR NOT DETECTED 09/17/22 03:20 Nasal Coronavir HKU1 PCR NOT DETECTED 09/17/22 03:20 Nasal Coronavir NL63 PCR NOT DETECTED 09/17/22 03:20 Nasal Coronavir OC43 PCR NOT DETECTED 09/17/22 03:20 Nasal Enterovir/Rhinovir PCR NOT DETECTED 09/17/22 03:20 Nasal Influenza B PCR NOT DETECTED 09/17/22 03:20 Nasal Influenza A PCR NOT DETECTED 09/17/22 03:20 Nasal Parainfluen 1 PCR NOT DETECTED 09/17/22 03:20 Nasal Parainfluen 2 PCR NOT DETECTED 09/17/22 03:20 Nasal Parainfluen 3 PCR NOT DETECTED 09/17/22 03:20 Nasal Parainfluen 4 PCR NOT DETECTED 09/17/22 03:20 Nasal RSV (PCR) NOT DETECTED 09/17/22 03:20 Nasal Screen MRSA (PCR) NEGATIVE (NEGATIVE) 09/17/22 13:55 Nasal B.pertussis DNA PCR NOT DETECTED 09/17/22 03:20 Nasal C.pneumoniae (PCR) NOT DETECTED 09/17/22 03:20 [place] Human Metapneumo PCR NOT DETECTED 09/17/22 03:20 Nasal M.pneumoniae (PCR) NOT DETECTED 09/17/22 03:20 Nasal SARS-CoV-2 (PCR) NOT DETECTED 09/17/22 03:20 Stl C. diff Tox B Gene NEGATIVE (NEGATIVE) 09/19/22 23:40 Blood Type A POSITIVE 09/17/22 03:41 Blood Type Recheck A POSITIVE 09/17/22 02:51 Antibody Screen NEGATIVE 09/17/22 03:41 Sepsis Event Note (H) - Evaluation Current Stage of Sepsis: Ruled out
[2022-09-21] MEDS: VANCOMYCIN INJ 1 GM in SODIUM CHLORIDE 0.9% 250 ML IV SCH (16:27)
[2022-09-21] MEDS: traMADol 50 MG TABLET PO PRN (16:35)
[2022-09-21] MEDS: ATORVASTATIN 10 MG TABLET PO SCH (20:39)
[2022-09-21] MEDS: tiZANidine 4 MG TABLET PO SCH (20:39)
[2022-09-21] MEDS: OMEPRAZOLE 20 MG PO SCH (20:40)
[2022-09-21] MEDS ORDERED: PANTOPRAZOLE 40 MG TABLET PO SCH (21:00)
[2022-09-22] MEDS: FUROSEMIDE 40 MG TABLET PO SCH ×2 (05:51→14:01)
[2022-09-22 06:12] LABS: BASOPHILS # (AUTO) 0.1 10^3/uL (0.0-0.1); BASOPHILS % (AUTO) 1.3 %; EOSINOPHILS # (AUTO) 0.4 10^3/uL (0.0-0.7); HCT - HEMATOCRIT 29.8 % (37.0-47.0); LYMPHOCYTES % (AUTO) 30.9 %; MEAN CORPUSCULAR HGB CONC 30.2 g/dL (32.0-36.0); MEAN CORPUSCULAR VOLUME 92.5 fL (81.0-99.0); MEAN PLATELET VOLUME 10.3 fL (7.9-10.8); MONOCYTES # (AUTO) 1.1 10^3/uL (0.0-1.0); NEUTROPHILS # (AUTO) 2.7 10^3/uL (1.5-6.6); NEUTROPHILS % (AUTO) 43.3 %; PLT - PLATELET COUNT 265 10^3/uL (130-450); RED BLOOD COUNT 3.22 10^6/uL (4.20-5.40); RED CELL DISTRIBUTION WIDTH 14.8 % (12.0-15.0); WHITE BLOOD COUNT 6.3 x10^3/uL (4.8-10.8)
[2022-09-22 06:26] LABS: CALCIUM 9.4 mg/dL (8.5-10.3); CREATININE 1.4 mg/dL (0.4-1.0); CRP - C-REACTIVE PROTEIN 1.5 mg/dL (0-1.0); POTASSIUM 3.9 mmol/L (3.5-5.0)
[2022-09-22] MEDS: ACETAMINOPHEN 325 MG TABLET PO PRN (07:38)
[2022-09-22] MEDS: SACCHAROMYCES BOULARDII 250 MG CAPSULE PO SCH ×2 (07:54→17:15)
[2022-09-22] MEDS: LOPERAMIDE 2 MG CAPSULE PO PRN (07:54)
[2022-09-22] MEDS: cefTRIAXone 1 GM in SODIUM CHLORIDE 0.9% MINIBAG 100 ML IV SCH (08:54)
[2022-09-22] MEDS: ASPIRIN EC 81 MG TABLET PO SCH (08:55)
[2022-09-22] MEDS: APIXABAN 5 MG TABLET PO SCH ×2 (08:55→21:05)
[2022-09-22] MEDS: MULTIVITAMIN W/MINERALS TABLET PO SCH (08:55)
[2022-09-22] MEDS: POTASSIUM CHLORIDE 20 MEQ TABLET PO SCH ×2 (08:55→21:05)
[2022-09-22] MEDS: predniSONE 5 MG TABLET PO SCH (08:55)
[2022-09-22] MEDS: carvediloL 12.5 MG TABLET PO SCH ×2 (08:55→21:05)
[2022-09-22] MEDS: CHOLECALCIFEROL 25 MCG TABLET PO SCH (08:55)
[2022-09-22] MEDS: LIDOCAINE PATCH 5% TOP SCH (08:56)
[2022-09-22] MEDS: OMEPRAZOLE 20 MG PO SCH ×2 (08:56→21:06)
[2022-09-22] MEDS: SODIUM CHLORIDE FLUSH 0.9% 10 ML SYRINGE IVP SCH ×2 (08:57→17:15)
[2022-09-22] MEDS: SODIUM CHLORIDE FLUSH 0.9% 10 ML SYRINGE IVP PRN (10:53)
[2022-09-22] MEDS: ONDANSETRON 4 MG/2 ML VIAL IVP PRN (10:53)
[2022-09-22] MEDS: VANCOMYCIN INJ 1 GM in SODIUM CHLORIDE 0.9% 250 ML IV SCH (16:52)
[2022-09-22] MEDS: traMADol 50 MG TABLET PO PRN (17:04)
--- NOTE | 2022-09-22 18:03 | PROVIDER PROGRESS NOTE ---
Assessment/Plan - Problem List (1) Bacteremia due to methicillin resistant Staphylococcus epidermidis Assessment/Plan: Sonali was admitted for abrupt onset of SOB that started in the middle of the night 09/16 with oxygen saturation in the 60s on room air. She was on Bipap briefly in the ED, was able to be removed within a few hours after her breathing became less laborious and stable on 2L of oxygen at 96%. Initial considerations for her acute respiratory failure were pneumonia, CHF, interstitial lung disease, PE, arrhythmia, or LA. Viral panel was negative on 09/17. Starting on 09/17 in the ED she was given 500mg azithromycin and ceftriaxone 1gm which have been continued. She had blood cultures drawn on 09/17 that became positive for staphylococcus epidermis in all 4 bottles with growth under 24 hours. This amount of growth so quickly, points to a true bacteremia due to MRSE and not a contamination. The last Hospitalist spoke with Infectious Disease at on 09/19 who agreed that it is most likely a true infection. She has not had any ports, IVs, dental procedures, or artificial hardware in her body prior to her admission to us. As such, infectious disease advised that she will need a transesophageal echo to evaluate for valvular vegetations as a possible source of bacteremia. If she has a normal echo, she should only need antibiotic therapy for a total of 7-10 days. If she has vegetation, she will need 6 weeks of IV therapy. She had her Echo today and vegetations could not be ruled out. We do not have the capability for a transesophageal echo here, so we are working on getting her transportation to have this performed somewhere else and then come back here. 09/18 repeat blood cultures were ordered. 09/19 preliminary results are no growth after one day. Vancomycin was started 09/19 1g q36h Cephtriaxone was started 09/17 1g IV qd Plan - monitor repeat blood cultures when they are resulted - continue vancomycin and ceftriaxone ubtil vegetation ruled out - transesophageal echo now planned when available. The Last Hospitalist spoke to Dr Smith on 09/20 to prepare them, after Echo here I called [facility] yesterday 09/21 and put her on their list. Our instrument engineer Cherrie called [facility] today 09/22 and was told pt is not scheduled for today, they said "probably tomorrow". - will need determination of what antibx and duration, after RANJAN done (2) Pneumonia Impression: The working diagnosis at this point is pneumonia, however she continues to be very nonspecific in her findings. She presented to the ED with severe hypoxia, with O2 sat in the 60s on room air. She was stabilized on a Bipap in the ED and recovered with less laborious breathing and has been stable on 2L of oxygen via nasal cannula. She was not feeling ill leading up to her hypoxia, she had a runny nose that day and that is it. Her increased CRP and Procalcitonin are making us lean towards suspecting pneumonia. She had an elevated WBC on 09/18 at 12.4, on 09/19 it is down to 9.4. 09/19 neutrophilia is at 6.9. She seems to be responding to antibiotic therapy. CXR on 09/17 showed bilateral mixed interstitial and alveolar opacity suggestive of penumonia, less likely aspiration or edema. 09/18 that showed improved aeration, decrease in interstitial prominence. Likely atelectasis at the lung bases. Stable right sided PICC line. She was started on Azithromycin 500mg IV for 3 doses and Cephtriaxone 1g for empiric therapy. She has continued cephtriaxone 1g qd since 09/17 and started vancomycin 1g IV q36h on 09/19. Her procalcitonin is improving. 32.34>> 17.30, and CRP improving 20>> 8>> and is 3 today. WBC count is within normal limits Neutrophils are within normal limits Plan: -Continue O2 supplement, target sats are 90-92%. -Continue ceftriaxone and vancomycin -monitor CBC & BMP daily (3) Interstitial pneumonitis Impression: History of interstitial pneumonitis at the base of her lungs. Rales heard at the bases bilaterally, this is likely contributing to her hypoxia. She is stable on 2L oxygen, with sats at 97%. She is on a home dose of prednisone 2.5mg PO qd which she has been receiving here as well. Plan: - continue prednisone - monitor O2 (4) Acute respiratory failure with hypoxia Impression: Sonali was admitted for abrupt onset of SOB that started 09/16 and woke her up from sleep. Her oxygen was in the 60s on room air when EMS arrived and she was started on a nonrebreather. She was put on bipap 100% Fi02 in the ED. When her breathing became less laborious they removed bipap and she was saturating 96% on 2L of oxygen. The last Hospitalist had seen her a few times without her oxygen on while she was at rest in bed 09/19 she walked to the bathroom and desaturated to 86%. She was moved to [facility] on 09/19 Plan: continue suppl O2, target sats are at least 90-92% (5) Congestive heart failure Impression: She has a history of CHF that is managed by lasix. She is compliant with her lasix 40mg BID, and had an echo in November 2021 that was normal. Her CXR on 09/18 was read and thought to be more similar to pneumonia than edema. However, her BNP was 354 and she responded to lasix and antibiotics. It is still unclear if the etiology of her SOB this admission is a CHF exacerbation or due to pneumonia. 09/19 her BNP frank to 750. This rise could be due to a CHF exacerbation or it could be rising in correlation with her renal dysfunction. (Since admission her BUN/cr has been 39/1.6>> 33/1.7>> 29/1.5. Based on her history of labs here, she seems to have had chronic kidney disease stage with GFR between 30-69). Today her Echo was done and showed a preserved LVEF of 60% Plan - continue lasix 40mg BIDdiuretic dosing - monitor I&O (6) Dyslipidemia Impression: Sonali has a history of dyslipidemia that is managed with lovastatin 40mg qpm. Plan: She is managed here with Lipitor 20mg qpm, since Lovastatin is not on hosp formulary.. (7) GERD (gastroesophageal reflux disease) Impression: She has a history of GERD with Tao's esophagus. Plan: She is managed with Famotidine 20mg BID, continuing this while she is here. (8) Chronic kidney disease Impression: Since admission her BUN/cr has been 39/1.6>> 33/1.7>> 29/1.5Based on her history of labs here, she seems to have had chronic kidney disease stage 3 with GFR between(30-69). This could be contributing to her elevated BNP. Plan: - avoid nephrotoxins - monitor BMP daily Qualifiers: Chronic kidney disease stage: stage 3 (moderate) (9) History of stroke Impression: She has a history of stroke with residual L sided mild weakness, and is managed by being on Eliquis. Continue Eliquis 5mg PO BID. (10) Hypertension Impression: Hypertension is managed with Carvedilol 12.5mg PO BID. Allergy to BETY inhibitors is noted. Plan: - continue carvedilol - Current Meds Current Meds: Current Medications Generic Name Dose Route Start Last Admin Trade Name Nicola PRN Reason Stop Dose Admin Acetaminophen 650 mg 09/17/22 05:22 09/22/22 07:38 Acetaminophen 325 Mg Tablet PO 650 mg Q4HR PRN Administration Pain 1 to 4, or Fever Apixaban 5 mg 09/17/22 21:00 09/22/22 08:55 Apixaban 5 Mg Tablet PO 5 mg BID CARLO Administration Aspirin 81 mg 09/18/22 09:00 09/22/22 08:55 Aspirin Ec 81 Mg Tablet PO 81 mg DAILY CARLO Administration Atorvastatin Calcium 20 mg 09/17/22 21:00 09/21/22 20:39 Atorvastatin 10 Mg Tablet PO 20 mg QPM CARLO Administration Calcium Carbonate/Glycine 500 mg 09/19/22 20:57 09/21/22 05:06 Calcium Carbonate Chew 500 Mg Tablet PO 500 mg BID PRN Administration INDIGESTION Carvedilol 12.5 mg 09/18/22 13:13 09/22/22 08:55 Carvedilol 12.5 Mg Tablet PO 12.5 mg BID CARLO Administration Cholecalciferol 50 mcg 09/20/22 17:00 09/22/22 08:55 Cholecalciferol 25 Mcg Tablet PO 50 mcg DAILY CARLO Administration Furosemide 40 mg 09/21/22 16:00 09/22/22 14:01 Furosemide 40 Mg Tablet PO 40 mg BIDDIURETIC CARLO Administration Ceftriaxone Sodium 1 gm/ 100 mls @ 200 mls/hr 09/17/22 09:00 09/22/22 09:24 Sodium Chloride IV Infused DAILY CARLO Infusion Vancomycin HCl 1 gm/ Sodium 250 mls @ 167 mls/hr 09/20/22 16:30 09/22/22 16:52 Chloride IV 167 mls/hr Q24H CARLO Administration Lidocaine 1 patch 09/18/22 09:00 09/22/22 08:56 Lidocaine Patch 5% TOP 1 patch DAILY CARLO Administration Loperamide HCl 2 mg 09/22/22 07:38 09/22/22 07:54 Loperamide 2 Mg Capsule PO 2 mg QID PRN Administration Diarrhea Multivitamins/Minerals 1 tab 09/20/22 17:00 09/22/22 08:55 Multivitamin W/Minerals Tablet PO 1 tab DAILYWM CARLO Administration Ondansetron HCl 4 mg 09/17/22 05:22 09/22/22 10:53 Ondansetron 4 Mg/2 Ml Vial IVP 4 mg Q6HR PRN Administration Nausea / Vomiting Omeprazole 20mg 2 each 09/21/22 21:00 09/22/22 08:56 Capsule PO 2 each BID CARLO Administration Potassium Chloride 20 meq 09/17/22 21:00 09/22/22 08:55 Potassium Chloride 20 Meq Tablet PO 20 meq BID CARLO Administration Prednisone 2.5 mg 09/18/22 08:00 09/22/22 08:55 Prednisone 5 Mg Tablet PO 2.5 mg DAILYWM CARLO Administration Saccharomyces Boulardii 250 mg 09/22/22 08:00 09/22/22 17:15 Saccharomyces Boulardii 250 Mg Capsule PO 250 mg BIDWM CARLO Administration Sodium Chloride 10 ml 09/17/22 09:00 09/22/22 17:15 Sodium Chloride Flush 0.9% 10 Ml Syringe IVP 10 ml 0100,0900,1700 CARLO Administration Sodium Chloride 10 ml 09/17/22 05:22 09/22/22 10:53 Sodium Chloride Flush 0.9% 10 Ml Syringe IVP 10 ml PRN PRN Administration NEEDED PER PROVIDER ORDERS Tizanidine HCl 4 mg 09/17/22 21:00 09/21/22 20:39 Tizanidine 4 Mg Tablet PO 4 mg QPM CARLO Administration Tramadol HCl 100 mg 09/17/22 14:42 09/22/22 17:04 Tramadol 50 Mg Tablet PO 50 mg Q6HR PRN Administration PAIN - Lab Result Fish Bone Diagrams: 09/23/22 09:15 09/23/22 09:15 - Additional Planning My Orders: My Active Orders 09/21/22 21:00 Patient Own Med [Patient Own Medication] 2 each PO BID 09/22/22 07:38 Loperamide [Imodium] 2 mg PO QID PRN 09/22/22 08:00 Saccharomyces Boulardii [Florastor] 250 mg PO BIDWM 09/22/22 10:56 Miscellaenous Nursing Order [RC] QSHIFT Subjective - Subjective Patient Reports: Resting Comfortably, No Complaints Nursing Reports: Other ([facility] does not have her on their carlo for a RANJAN for today) Objective Vital Signs: Vital Signs - 24 hr 09/21/22 09/22/22 09/22/22 23:53 07:25 07:32 Temperature 36.8 C 36.7 C Heart Rate [ 71 79 Brachial] Respiratory 16 16 Rate Blood Pressure 125/51 L 123/62 [Right Radial artery] O2 Saturation 96 90 L 94 If not protocol 2 1 : Oxygen Flow, liters/minute 09/22/22 09/22/22 09/22/22 09:00 14:11 15:44 Temperature 37.3 C Heart Rate [ 69 Brachial] Respiratory 18 Rate Blood Pressure 115/48 L 122/53 L [Right Radial artery] O2 Saturation 95 If not protocol 1 2 : Oxygen Flow, liters/minute Oxygen O2 Source Nasal cannula I&O (Last 24 Hrs): Intake and Output Totals x24h 09/20/22 09/21/22 09/22/22 23:59 23:59 23:59 Intake Total 1078 820 860 Output Total 1275 300 650 Balance -197 520 210 General: Alert, Oriented x3 HEENT: Mucous membr. moist/pink, Other (wearing O2 by n.c.) Neck: Supple, No JVD Neuro: Alert Cardiovascular: No murmurs Respiratory: No respiratory distress (on O2), Breath sounds nml Abdomen: Normal bowel sounds, Soft Extremities: No clubbing, No edema - Results Results: Laboratory Results WBC 6.3 x10^3/uL (4.8-10.8) 09/22/22 05:55 RBC 3.22 10^6/uL (4.20-5.40) L 09/22/22 05:55 Hgb 9.0 g/dL (12.0-16.0) L 09/22/22 05:55 Hct 29.8 % (37.0-47.0) L 09/22/22 05:55 MCV 92.5 fL (81.0-99.0) 09/22/22 05:55 MCH 28.0 pg (27.0-31.0) 09/22/22 05:55 MCHC 30.2 g/dL (32.0-36.0) L 09/22/22 05:55 RDW 14.8 % (12.0-15.0) 09/22/22 05:55 Plt Count 265 10^3/uL (130-450) 09/22/22 05:55 MPV 10.3 fL (7.9-10.8) 09/22/22 05:55 Neut # (Auto) 2.7 10^3/uL (1.5-6.6) 09/22/22 05:55 Lymph # (Auto) 2.0 10^3/uL (1.5-3.5) 09/22/22 05:55 [place] # (Auto) 1.1 10^3/uL (0.0-1.0) H 09/22/22 05:55 Eos # (Auto) 0.4 10^3/uL (0.0-0.7) 09/22/22 05:55 Baso # (Auto) 0.1 10^3/uL (0.0-0.1) 09/22/22 05:55 Absolute Nucleated RBC 0.00 x10^3/uL 09/22/22 05:55 Nucleated RBC % 0.0 /100WBC 09/22/22 05:55 Bld Gas Analysis Time 0314 09/17/22 03:12 Sample Site RIGHT BRACHIAL 09/17/22 03:12 ABG pH 7.37 (7.35-7.45) 09/17/22 03:12 ABG pCO2 28 mmHg (34-45) L 09/17/22 03:12 ABG pO2 76 mmHg (80-100) L 09/17/22 03:12 ABG HCO3 15.5 mmol/L (22.0-26.0) L 09/17/22 03:12 ABG Total CO2 16.4 MMOL/L (21.0-29.0) L 09/17/22 03:12 ABG O2 Saturation 94 % (94-98) 09/17/22 03:12 ABG Base Excess -8.4 mmol/L (-2.0-3.0) L 09/17/22 03:12 Jt Test NOT APPLICABLE 09/17/22 03:12 VBG pH 7.391 (7.31-7.41) 09/20/22 05:58 Ionized Calcium 1.24 mmol/L (1.15-1.33) 09/20/22 05:58 O2 Delivery Device BiPAP 09/17/22 03:12 Vent Mode SYNCHRONOUS/TIMES 09/17/22 03:12 FiO2 100.00 09/17/22 03:12 Pressure Support Vent 7 cmH2O 09/17/22 03:12 EPAP 5 cmH2O 09/17/22 03:12 IPAP 12 cmH2O 09/17/22 03:12 Sodium 140 mmol/L (135-145) 09/22/22 05:55 Potassium 3.9 mmol/L (3.5-5.0) 09/22/22 05:55 Chloride 101 mmol/L (101-111) 09/22/22 05:55 Carbon Dioxide 29 mmol/L (21-32) 09/22/22 05:55 Anion Gap 10.0 (6-13) 09/22/22 05:55 BUN 22 mg/dL (6-20) H 09/22/22 05:55 Creatinine 1.4 mg/dL (0.4-1.0) H 09/22/22 05:55 Estimated GFR (MDRD) 36 (>89) L 09/22/22 05:55 Glucose 99 mg/dL (70-100) 09/22/22 05:55 Lactic Acid 1.4 mmol/L (0.5-2.2) 09/17/22 21:14 Calcium 9.4 mg/dL (8.5-10.3) 09/22/22 05:55 Phosphorus 2.9 mg/dL (2.5-4.6) 09/20/22 05:58 Magnesium 1.7 mg/dL (1.7-2.8) 09/21/22 05:30 Total Bilirubin 0.6 mg/dL (0.2-1.0) 09/17/22 02:51 AST 19 IU/L (10-42) 09/17/22 02:51 ALT 14 IU/L (10-60) 09/17/22 02:51 Alkaline Phosphatase 88 IU/L (42-121) 09/17/22 02:51 Troponin I High Sens 9.1 ng/L (2.3-14.8) 09/18/22 13:30 C-Reactive Protein 1.5 mg/dL (0-1.0) H 09/22/22 05:55 B-Natriuretic Peptide 750 pg/mL (5-100) H 09/19/22 05:00 Total Protein 6.9 g/dL (6.7-8.2) 09/17/22 02:51 Albumin 3.7 g/dL (3.2-5.5) 09/17/22 02:51 Globulin 3.2 g/dL (2.1-4.2) 09/17/22 02:51 Albumin/Globulin Ratio 1.2 (1.0-2.2) 09/17/22 02:51 Procalcitonin 17.30 ng/mL (<0.5) H* 09/20/22 05:58 Nasal Adenovirus (PCR) NOT DETECTED 09/17/22 03:20 Nasal B. parapertussis DNA (PCR) NOT DETECTED 09/17/22 03:20 Nasal Coronavir 229E PCR NOT DETECTED 09/17/22 03:20 Nasal Coronavir HKU1 PCR NOT DETECTED 09/17/22 03:20 Nasal Coronavir NL63 PCR NOT DETECTED 09/17/22 03:20 Nasal Coronavir OC43 PCR NOT DETECTED 09/17/22 03:20 Nasal Enterovir/Rhinovir PCR NOT DETECTED 09/17/22 03:20 Nasal Influenza B PCR NOT DETECTED 09/17/22 03:20 Nasal Influenza A PCR NOT DETECTED 09/17/22 03:20 Nasal Parainfluen 1 PCR NOT DETECTED 09/17/22 03:20 Nasal Parainfluen 2 PCR NOT DETECTED 09/17/22 03:20 Nasal Parainfluen 3 PCR NOT DETECTED 09/17/22 03:20 Nasal Parainfluen 4 PCR NOT DETECTED 09/17/22 03:20 Nasal RSV (PCR) NOT DETECTED 09/17/22 03:20 Nasal Screen MRSA (PCR) NEGATIVE (NEGATIVE) 09/17/22 13:55 Nasal B.pertussis DNA PCR NOT DETECTED 09/17/22 03:20 Nasal C.pneumoniae (PCR) NOT DETECTED 09/17/22 03:20 [place] Human Metapneumo PCR NOT DETECTED 09/17/22 03:20 Nasal M.pneumoniae (PCR) NOT DETECTED 09/17/22 03:20 Nasal SARS-CoV-2 (PCR) NOT DETECTED 09/17/22 03:20 Stl C. diff Tox B Gene NEGATIVE (NEGATIVE) 09/19/22 23:40 Last Dose Date Not Reportable 09/22/22 16:15 Last Dose Time Not Reportable 09/22/22 16:15 Vancomycin Trough 19.0 ug/mL (10.0-20.0) 09/22/22 16:15 Blood Type A POSITIVE 09/17/22 03:41 Blood Type Recheck A POSITIVE 09/17/22 02:51 Antibody Screen NEGATIVE 09/17/22 03:41 Sepsis Event Note (H) - Evaluation Current Stage of Sepsis: Ruled out
[2022-09-22] MEDS: tiZANidine 4 MG TABLET PO SCH (21:05)
[2022-09-22] MEDS: ATORVASTATIN 10 MG TABLET PO SCH (21:05)
[2022-09-23] MEDS: SODIUM CHLORIDE FLUSH 0.9% 10 ML SYRINGE IVP SCH ×3 (00:15→17:40)
[2022-09-23] MEDS: ACETAMINOPHEN 325 MG TABLET PO PRN ×2 (05:21→13:38)
[2022-09-23] MEDS: FUROSEMIDE 40 MG TABLET PO SCH (05:21)
[2022-09-23] MEDS: MULTIVITAMIN W/MINERALS TABLET PO SCH (09:19)
[2022-09-23] MEDS: CHOLECALCIFEROL 25 MCG TABLET PO SCH (09:21)
[2022-09-23] MEDS: APIXABAN 5 MG TABLET PO SCH ×2 (09:21→20:24)
[2022-09-23] MEDS: ASPIRIN EC 81 MG TABLET PO SCH (09:23)
[2022-09-23 09:26] LABS: BASOPHILS # (AUTO) 0.1 10^3/uL (0.0-0.1); BASOPHILS % (AUTO) 0.6 %; EOSINOPHILS # (AUTO) 0.4 10^3/uL (0.0-0.7); EOSINOPHILS % (AUTO) 4.9 %; HCT - HEMATOCRIT 28.1 % (37.0-47.0); HGB - HEMOGLOBIN 8.5 g/dL (12.0-16.0); LYMPHOCYTES # (AUTO) 1.9 10^3/uL (1.5-3.5); LYMPHOCYTES % (AUTO) 24.1 %; MEAN CORPUSCULAR HEMOGLOBIN 28.2 pg (27.0-31.0); MEAN CORPUSCULAR HGB CONC 30.2 g/dL (32.0-36.0); MEAN CORPUSCULAR VOLUME 93.4 fL (81.0-99.0); MEAN PLATELET VOLUME 10.3 fL (7.9-10.8); MONOCYTES # (AUTO) 1.3 10^3/uL (0.0-1.0); MONOCYTES % (AUTO) 15.9 %; NEUTROPHILS # (AUTO) 4.3 10^3/uL (1.5-6.6); PLT - PLATELET COUNT 259 10^3/uL (130-450); RED BLOOD COUNT 3.01 10^6/uL (4.20-5.40); RED CELL DISTRIBUTION WIDTH 14.7 % (12.0-15.0)
[2022-09-23] MEDS: cefTRIAXone 1 GM in SODIUM CHLORIDE 0.9% MINIBAG 100 ML IV SCH (09:28)
[2022-09-23] MEDS: carvediloL 12.5 MG TABLET PO SCH ×2 (09:38→20:23)
[2022-09-23 09:44] LABS: BUN - BLOOD UREA NITROGEN 25 mg/dL (6-20); CARBON DIOXIDE - CO2 28 mmol/L (21-32); CHLORIDE 99 mmol/L (101-111); GFR - MDRD 24 (>89); GLUCOSE 133 mg/dL (70-100); POTASSIUM 3.6 mmol/L (3.5-5.0); SODIUM 136 mmol/L (135-145)
[2022-09-23 09:47] LABS: CRP - C-REACTIVE PROTEIN < 1.0 mg/dL (0-1.0)
[2022-09-23] MEDS: predniSONE 5 MG TABLET PO SCH (09:50)
[2022-09-23] MEDS: SACCHAROMYCES BOULARDII 250 MG CAPSULE PO SCH ×2 (09:52→17:40)
[2022-09-23] MEDS: POTASSIUM CHLORIDE 20 MEQ TABLET PO SCH ×2 (09:52→20:24)
[2022-09-23] MEDS: OMEPRAZOLE 20 MG PO SCH ×2 (09:54→20:24)
[2022-09-23] MEDS: LIDOCAINE PATCH 5% TOP SCH (11:03)
[2022-09-23] MEDS ORDERED: VANCOMYCIN INJ 1 GM in SODIUM CHLORIDE 0.9% 250 ML IV SCH (12:56)
[2022-09-23] MEDS ORDERED: SODIUM CHLORIDE 0.9% 1,000 ML IV SCH (13:00)
--- NOTE | 2022-09-23 13:10 | PHARMACY PROGRESS NOTE ---
- Therapy Status Vancomycin regimen day #: 7 (SCR UP TO 2.0 FROM 1.3) Basis for treatment: Culture result Treatment indication: BACTEREMIA VS ENDOCARDITIS Trough goal: 15-20 Concurrent antibiotics: CTX 1Gq24H - DONNY Risk Risk level for Acute Kidney Injury: High Acute Kidney Injury risk factors: Duration >7 days, Goal trough >15 - Monitoring and Recommendation Clinical response to treatment: I&O Previous 24 hours 09/21/22 09/22/22 09/23/22 23:59 23:59 23:59 Intake Total 820 1360 200 Output Total 300 750 300 Balance 520 610 -100 Lab Results 09/23/22 09/22/22 09/21/22 09:15 05:55 05:30 BUN 25 H 22 H 19 Creatinine 2.0 H 1.4 H 1.3 H Estimated GFR (MDRD) 24 L 36 L 39 L 09/20/22 09/19/22 09/18/22 05:58 05:00 05:46 BUN 22 H 29 H 33 H Creatinine 1.3 H 1.5 H 1.7 H Estimated GFR (MDRD) 39 L 33 L 29 L 09/17/22 02:51 BUN 29 H Creatinine 1.6 H Estimated GFR (MDRD) 31 L Vancomycin Monitoring 09/22/22 16:15 Vancomycin Trough 19.0 Cultures 09/17/22 02:57 Blood Blood Culture - Final 09/17/22 02:51 Blood Blood Culture - Final Coag Negative Staphylococcus Coag Negative Staphylococcus#2 09/19/22 05:00 Blood Blood Culture - Preliminary NO GROWTH AFTER 2 DAYS 09/17/22 02:57 Blood Blood Culture (PCR) - Final 09/17/22 02:51 Blood Blood Culture (PCR) - Final Monitoring plan: Daily serum creatinine Next trough due (date/time): 09/24/22 @1600 Pharmacy recommendation: Hold dose (SCR UP TODAY TO 2.0 FROM 1.4 YESTERDAY. VANCO TROUGH 09/22/20~[address] Owusu, AND DR Owusu WANTS TO CONTINUE VANCO INSTEAD OF LINEZOLID. PLAN: HOLD TODAY'S DOSE, CHANGE TO 1GQ48H TO START 09/24 @1700. VANCO LEVEL 09/24 @1600.)
--- NOTE | 2022-09-23 17:06 | PROVIDER PROGRESS NOTE ---
Assessment/Plan - Problem List (1) Bacteremia due to methicillin resistant Staphylococcus epidermidis Assessment/Plan: Sonali was admitted for abrupt onset of SOB that started in the middle of the night 09/16 with oxygen saturation in the 60s on room air. She was on Bipap briefly in the ED, was able to be removed within a few hours after her breathing became less laborious and stable on 2L of oxygen at 96%. Initial considerations for her acute respiratory failure were pneumonia, CHF, interstitial lung disease, PE, arrhythmia, or GA. Viral panel was negative on 09/17. Starting on 09/17 in the ED she was given 500mg azithromycin and ceftriaxone 1gm which have been continued. She had blood cultures drawn on 09/17 that became positive for staphylococcus epidermis in all 4 bottles with growth under 24 hours. This amount of growth so quickly, points to a true bacteremia due to MRSE and not a contamination. The last Hospitalist spoke with Infectious Disease at on 09/19 who agreed that it is most likely a true infection. She has not had any ports, IVs, dental procedures, or artificial hardware in her body prior to her admission to us. As such, infectious disease advised that she will need a RANJAN to evaluate for valvular vegetations as a possible source of bacteremia, if she has a normal e cho, she should only need antibiotic therapy for a total of 7-10 days. If she has vegetation, she will need 6 weeks of IV therapy. She had her Echo and vegetations could not be ruled out. We do not have the capability for a transesophageal echo here, so we are working on getting her transportation to have this performed somewhere else and then come back here. 09/18 repeat blood cultures were ordered. 09/19 preliminary results are no growth after one day. Vancomycin was started 09/19 1g q36h Cephtriaxone was started 09/17 1g IV qd Plan: - monitor repeat blood cultures when they are resulted - continue vancomycin and ceftriaxone until vegetation ruled out, discussed with our Pharmacist Destiney - transesophageal echo now planned when available. The Last Hospitalist spoke to Dr Smith on 09/20 to prepare them, after Echo here I called [facility] transfer center yesterday 09/21 and put her on their list. Our slip laster Cherrie called [facility] today 09/22 and was told pt is not scheduled for today, they said "probably tomorrow". Today, Hugh Ortiz called us and she will be having her RANJAN there tomorrow morning, then come back to us; transportation arranged. - will need determination of what antibx and duration, after RANJAN done (2) Pneumonia Impression: The working diagnosis at this point is pneumonia, however she continues to be very nonspecific in her findings. She presented to the ED with severe hypoxia, with O2 sat in the 60s on room air. She was stabilized on a Bipap in the ED and recovered with less laborious breathing and has been stable on 2L of oxygen via nasal cannula. She was not feeling ill leading up to her hypoxia, she had a runny nose that day and that is it. Her increased CRP and Procalcitonin are making us lean towards suspecting pneumonia. She had an elevated WBC on 09/18 at 12.4, on 09/19 it is down to 9.4. 09/19 neutrophilia is at 6.9. She seems to be responding to antibiotic therapy. CXR on 09/17 showed bilateral mixed interstitial and alveolar opacity suggestive of penumonia, less likely aspiration or edema. 09/18 that showed improved aeration, decrease in interstitial prominence. Likely atelectasis at the lung bases. Stable right sided PICC line. She was started on Azithromycin 500mg IV for 3 doses and Cephtriaxone 1g for empiric therapy. She has continued cephtriaxone 1g qd since 09/17 and started vancomycin 1g IV q36h on 09/19. Her procalcitonin is improving. 32.34>> 17.30, and CRP improving 20>> 8>> 3 WBC count is within normal limits Neutrophils are within normal limits Plan: -Continue O2 supplement, target sats are 90-92%. -Continue ceftriaxone and vancomycin -monitor CBC & BMP daily (3) Interstitial pneumonitis Impression: History of interstitial pneumonitis at the base of her lungs. Rales heard at the bases bilaterally, this is likely contributing to her hypoxia. She is stable on 2L oxygen, with sats at 97%. She is on a home dose of prednisone 2.5mg PO qd which she has been receiving here as well. Plan: - continue prednisone - monitor O2 (4) Acute respiratory failure with hypoxia Impression: Sonali was admitted for abrupt onset of SOB that started 09/16 and woke her up from sleep. Her oxygen was in the 60s on room air when EMS arrived and she was started on a nonrebreather. She was put on bipap 100% Fi02 in the ED. When her breathing became less laborious they removed bipap and she was saturating 96% on 2L of oxygen. The last Hospitalist had seen her a few times without her oxygen on while she was at rest in bed 09/19 she walked to the bathroom and desaturated to 86%. She was moved to [facility] on 09/19 Plan: continue suppl O2, target sats are at least 90-92% (5) Acute on Chronic kidney disease Impression: Since admission her creat has been 1.6>> 1.7>> 1.5. Based on her history of labs here, she seems to have had chronic kidney disease stage 3 with GFR between(30- 69). Her creat frank from 1.4 to 2.0 today. It is likely from being on Lasix twice daily. Plan: Will decrease her Lasix to just once daily. Will give normal saline 1 L at 40 cc/hr Avoid nephrotoxins Follow BMP day (6) Congestive heart failure Impression: She has a history of CHF that is managed by lasix. She is compliant with her lasix 40mg BID, and had an echo in November 2021 that was normal. Her CXR on 09/18 was read and thought to be more similar to pneumonia than edema. However, her BNP was 354 and she responded to lasix and antibiotics. It is still unclear if the etiology of her SOB this admission is a CHF exacerbation or due to pneumonia. 09/19 her BNP frank to 750. Echo was done therefore and showed a preserved LVEF of 60% Plan: - today we will decrease Lasix to daily and give 1L NS slowly, for managing the DONNY - monitor I&O (7) Dyslipidemia Impression: Sonali has a history of dyslipidemia that is managed with lovastatin 40mg qpm. Plan: She is managed here with Lipitor 20mg qpm, since Lovastatin is not on hosp formulary.. (8) GERD (gastroesophageal reflux disease) Impression: She has a history of GERD with Tao's esophagus. Plan: She is managed with Famotidine 20mg BID, continuing this while she is here. (9) History of stroke Impression: She has a history of stroke with residual L sided mild weakness, and is managed by being on Eliquis. Continue Eliquis 5mg PO BID. (10) Hypertension Impression: Hypertension is managed with Carvedilol 12.5mg PO BID. Allergy to BETY inhibitors is noted. Plan: - continue carvedilol - Current Meds Current Meds: Current Medications Generic Name Dose Route Start Last Admin Trade Name Freq PRN Reason Stop Dose Admin Acetaminophen 650 mg 09/17/22 05:22 09/23/22 13:38 Acetaminophen 325 Mg Tablet PO 650 mg Q4HR PRN Administration Pain 1 to 4, or Fever Apixaban 5 mg 09/17/22 21:00 09/23/22 09:21 Apixaban 5 Mg Tablet PO 5 mg BID JENNYFER Administration Aspirin 81 mg 09/18/22 09:00 09/23/22 09:23 Aspirin Ec 81 Mg Tablet PO 81 mg DAILY JENNYFER Administration Atorvastatin Calcium 20 mg 09/17/22 21:00 09/22/22 21:05 Atorvastatin 10 Mg Tablet PO 20 mg QPM JENNYFER Administration Calcium Carbonate/Glycine 500 mg 09/19/22 20:57 09/21/22 05:06 Calcium Carbonate Chew 500 Mg Tablet PO 500 mg BID PRN Administration INDIGESTION Carvedilol 12.5 mg 09/18/22 13:13 09/23/22 09:38 Carvedilol 12.5 Mg Tablet PO Not Given BID JENNYFER Cholecalciferol 50 mcg 09/20/22 17:00 09/23/22 09:21 Cholecalciferol 25 Mcg Tablet PO 50 mcg DAILY JENNYFER Administration Ceftriaxone Sodium 1 gm/ 100 mls @ 200 mls/hr 09/17/22 09:00 09/23/22 11:05 Sodium Chloride IV Infused DAILY JENNYFER Infusion Sodium Chloride 1,000 mls @ 40 mls/hr 09/23/22 13:00 09/23/22 13:38 Normal Saline 0.9% IV 09/24/22 13:59 40 mls/hr .Q25H JENNYFER Administration Lidocaine 1 patch 09/18/22 09:00 09/23/22 11:03 Lidocaine Patch 5% TOP 1 patch DAILY JENNYFER Administration Loperamide HCl 2 mg 09/22/22 07:38 09/22/22 07:54 Loperamide 2 Mg Capsule PO 2 mg QID PRN Administration Diarrhea Multivitamins/Minerals 1 tab 09/20/22 17:00 09/23/22 09:19 Multivitamin W/Minerals Tablet PO 1 tab DAILYWM JENNYFER Administration Ondansetron HCl 4 mg 09/17/22 05:22 09/22/22 10:53 Ondansetron 4 Mg/2 Ml Vial IVP 4 mg Q6HR PRN Administration Nausea / Vomiting Omeprazole 20mg 2 each 09/21/22 21:00 09/23/22 09:54 Capsule PO 2 each BID JENNYFER Administration Potassium Chloride 20 meq 09/17/22 21:00 09/23/22 09:52 Potassium Chloride 20 Meq Tablet PO 20 meq BID JENNYFER Administration Prednisone 2.5 mg 09/18/22 08:00 09/23/22 09:50 Prednisone 5 Mg Tablet PO 2.5 mg DAILYWM JENNYFER Administration Saccharomyces Boulardii 250 mg 09/22/22 08:00 09/23/22 09:52 Saccharomyces Boulardii 250 Mg Capsule PO 250 mg BIDWM JENNYFER Administration Sodium Chloride 10 ml 09/17/22 09:00 09/23/22 10:05 Sodium Chloride Flush 0.9% 10 Ml Syringe IVP 10 ml 0100,0900,1700 JENNYFER Administration Sodium Chloride 10 ml 09/17/22 05:22 09/22/22 10:53 Sodium Chloride Flush 0.9% 10 Ml Syringe IVP 10 ml PRN PRN Administration NEEDED PER PROVIDER ORDERS Tizanidine HCl 4 mg 09/17/22 21:00 09/22/22 21:05 Tizanidine 4 Mg Tablet PO 4 mg QPM JENNYFER Administration Tramadol HCl 100 mg 09/17/22 14:42 09/22/22 17:04 Tramadol 50 Mg Tablet PO 50 mg Q6HR PRN Administration PAIN - Lab Result Fish Bone Diagrams: 09/23/22 09:15 09/23/22 09:15 - Additional Planning My Orders: My Active Orders 09/23/22 13:00 Sodium Chloride 0.9% [Normal Saline 0.9%] 1,000 ml IV 40 mls/hr 09/23/22 16:25 VANCOMYCIN TROUGH [CHEM] Timed 09/24/22 00:01 DIET [NPO except Meds] [DIET] 09/24/22 05:00 BMP - BASIC METABOLIC PANEL [CHEM] DAILYLAB CBC - COMP BLD CT W/AUTO DIFF [HEME] DAILYLAB CRP - C-REACTIVE PROTEIN [CHEM] DAILYLAB 09/24/22 06:00 ALPRAZolam [Xanax] 0.25 mg PO ONCE PRN 09/24/22 09:00 Furosemide [Lasix] 40 mg PO DAILY 09/24/22 17:00 Vancomycin Inj [Vancomycin] 1 gm Sodium Chloride 0.9% [Normal Saline 0.9%] 250 ml IV Q48H Subjective - Subjective Patient Reports: Resting Comfortably, No Complaints Objective Vital Signs: Vital Signs - 24 hr 09/22/22 09/23/22 09/23/22 22:00 00:21 08:13 Temperature 37 C 36.7 C Heart Rate [ 84 73 Brachial] Respiratory 16 19 Rate Blood Pressure 104/52 L [Left Brachial artery] Blood Pressure 108/60 [Right Radial artery] O2 Saturation 96 92 If not protocol 1 1 1 : Oxygen Flow, liters/minute 09/23/22 09:00 Temperature Heart Rate [ Brachial] Respiratory Rate Blood Pressure [Left Brachial artery] Blood Pressure [Right Radial artery] O2 Saturation If not protocol 1 : Oxygen Flow, liters/minute Oxygen O2 Source Nasal cannula I&O (Last 24 Hrs): Intake and Output Totals x24h 09/21/22 09/22/22 09/23/22 23:59 23:59 23:59 Intake Total 820 1360 680 Output Total 300 750 300 Balance 520 610 380 General: Alert, Oriented x3 HEENT: Mucous membr. moist/pink, Other (wearing O2 at 1L/min via n.c.) Neck: Supple Neuro: Alert, Non Focal Cardiovascular: Regular rate, No murmurs Respiratory: No respiratory distress (on suppl O2), Breath sounds nml Abdomen: Soft Extremities: No clubbing, No edema - Results Results: Laboratory Results WBC 8.0 x10^3/uL (4.8-10.8) 09/23/22 09:15 RBC 3.01 10^6/uL (4.20-5.40) L 09/23/22 09:15 Hgb 8.5 g/dL (12.0-16.0) L 09/23/22 09:15 Hct 28.1 % (37.0-47.0) L 09/23/22 09:15 MCV 93.4 fL (81.0-99.0) 09/23/22 09:15 MCH 28.2 pg (27.0-31.0) 09/23/22 09:15 MCHC 30.2 g/dL (32.0-36.0) L 09/23/22 09:15 RDW 14.7 % (12.0-15.0) 09/23/22 09:15 Plt Count 259 10^3/uL (130-450) 09/23/22 09:15 MPV 10.3 fL (7.9-10.8) 09/23/22 09:15 Neut # (Auto) 4.3 10^3/uL (1.5-6.6) 09/23/22 09:15 Lymph # (Auto) 1.9 10^3/uL (1.5-3.5) 09/23/22 09:15 Sharp # (Auto) 1.3 10^3/uL (0.0-1.0) H 09/23/22 09:15 Eos # (Auto) 0.4 10^3/uL (0.0-0.7) 09/23/22 09:15 Baso # (Auto) 0.1 10^3/uL (0.0-0.1) 09/23/22 09:15 Absolute Nucleated RBC 0.00 x10^3/uL 09/23/22 09:15 Nucleated RBC % 0.0 /100WBC 09/23/22 09:15 Bld Gas Analysis Time 0314 09/17/22 03:12 Sample Site RIGHT BRACHIAL 09/17/22 03:12 ABG pH 7.37 (7.35-7.45) 09/17/22 03:12 ABG pCO2 28 mmHg (34-45) L 09/17/22 03:12 ABG pO2 76 mmHg (80-100) L 09/17/22 03:12 ABG HCO3 15.5 mmol/L (22.0-26.0) L 09/17/22 03:12 ABG Total CO2 16.4 MMOL/L (21.0-29.0) L 09/17/22 03:12 ABG O2 Saturation 94 % (94-98) 09/17/22 03:12 ABG Base Excess -8.4 mmol/L (-2.0-3.0) L 09/17/22 03:12 Jt Test NOT APPLICABLE 09/17/22 03:12 VBG pH 7.391 (7.31-7.41) 09/20/22 05:58 Ionized Calcium 1.24 mmol/L (1.15-1.33) 09/20/22 05:58 O2 Delivery Device BiPAP 09/17/22 03:12 Vent Mode SYNCHRONOUS/TIMES 09/17/22 03:12 FiO2 100.00 09/17/22 03:12 Pressure Support Vent 7 cmH2O 09/17/22 03:12 EPAP 5 cmH2O 09/17/22 03:12 IPAP 12 cmH2O 09/17/22 03:12 Sodium 136 mmol/L (135-145) 09/23/22 09:15 Potassium 3.6 mmol/L (3.5-5.0) 09/23/22 09:15 Chloride 99 mmol/L (101-111) L 09/23/22 09:15 Carbon Dioxide 28 mmol/L (21-32) 09/23/22 09:15 Anion Gap 9.0 (6-13) 09/23/22 09:15 BUN 25 mg/dL (6-20) H 09/23/22 09:15 Creatinine 2.0 mg/dL (0.4-1.0) H 09/23/22 09:15 Estimated GFR (MDRD) 24 (>89) L 09/23/22 09:15 Glucose 133 mg/dL (70-100) H 09/23/22 09:15 Lactic Acid 1.4 mmol/L (0.5-2.2) 09/17/22 21:14 Calcium 9.0 mg/dL (8.5-10.3) 09/23/22 09:15 Phosphorus 2.9 mg/dL (2.5-4.6) 09/20/22 05:58 Magnesium 1.7 mg/dL (1.7-2.8) 09/21/22 05:30 Total Bilirubin 0.6 mg/dL (0.2-1.0) 09/17/22 02:51 AST 19 IU/L (10-42) 09/17/22 02:51 ALT 14 IU/L (10-60) 09/17/22 02:51 Alkaline Phosphatase 88 IU/L (42-121) 09/17/22 02:51 Troponin I High Sens 9.1 ng/L (2.3-14.8) 09/18/22 13:30 C-Reactive Protein < 1.0 mg/dL (0-1.0) 09/23/22 09:15 B-Natriuretic Peptide 750 pg/mL (5-100) H 09/19/22 05:00 Total Protein 6.9 g/dL (6.7-8.2) 09/17/22 02:51 Albumin 3.7 g/dL (3.2-5.5) 09/17/22 02:51 Globulin 3.2 g/dL (2.1-4.2) 09/17/22 02:51 Albumin/Globulin Ratio 1.2 (1.0-2.2) 09/17/22 02:51 Procalcitonin 17.30 ng/mL (<0.5) H* 09/20/22 05:58 Nasal Adenovirus (PCR) NOT DETECTED 09/17/22 03:20 Nasal B. parapertussis DNA (PCR) NOT DETECTED 09/17/22 03:20 Nasal Coronavir 229E PCR NOT DETECTED 09/17/22 03:20 Nasal Coronavir HKU1 PCR NOT DETECTED 09/17/22 03:20 Nasal Coronavir NL63 PCR NOT DETECTED 09/17/22 03:20 Nasal Coronavir OC43 PCR NOT DETECTED 09/17/22 03:20 Nasal Enterovir/Rhinovir PCR NOT DETECTED 09/17/22 03:20 Nasal Influenza B PCR NOT DETECTED 09/17/22 03:20 Nasal Influenza A PCR NOT DETECTED 09/17/22 03:20 Nasal Parainfluen 1 PCR NOT DETECTED 09/17/22 03:20 Nasal Parainfluen 2 PCR NOT DETECTED 09/17/22 03:20 Nasal Parainfluen 3 PCR NOT DETECTED 09/17/22 03:20 Nasal Parainfluen 4 PCR NOT DETECTED 09/17/22 03:20 Nasal RSV (PCR) NOT DETECTED 09/17/22 03:20 Nasal Screen MRSA (PCR) NEGATIVE (NEGATIVE) 09/17/22 13:55 Nasal B.pertussis DNA PCR NOT DETECTED 09/17/22 03:20 Nasal C.pneumoniae (PCR) NOT DETECTED 09/17/22 03:20 Douglas Human Metapneumo PCR NOT DETECTED 09/17/22 03:20 Nasal M.pneumoniae (PCR) NOT DETECTED 09/17/22 03:20 Nasal SARS-CoV-2 (PCR) NOT DETECTED 09/17/22 03:20 Stl C. diff Tox B Gene NEGATIVE (NEGATIVE) 09/19/22 23:40 Last Dose Date Not Reportable 09/22/22 16:15 Last Dose Time Not Reportable 09/22/22 16:15 Vancomycin Trough 19.0 ug/mL (10.0-20.0) 09/22/22 16:15 Blood Type A POSITIVE 09/17/22 03:41 Blood Type Recheck A POSITIVE 09/17/22 02:51 Antibody Screen NEGATIVE 09/17/22 03:41 Sepsis Event Note (H) - Evaluation Current Stage of Sepsis: Ruled out
[2022-09-23 17:19] LABS: VANCOMYCIN,TROUGH 30.3 ug/mL (10.0-20.0)
[2022-09-23] MEDS: ATORVASTATIN 10 MG TABLET PO SCH (20:22)
[2022-09-23] MEDS: traMADol 50 MG TABLET PO PRN (20:23)
[2022-09-23] MEDS: tiZANidine 4 MG TABLET PO SCH (20:24)
[2022-09-24] MEDS: SODIUM CHLORIDE FLUSH 0.9% 10 ML SYRINGE IVP SCH ×3 (01:06→16:37)
[2022-09-24] MEDS: ACETAMINOPHEN 325 MG TABLET PO PRN ×2 (04:04→15:28)
[2022-09-24] MEDS: LOPERAMIDE 2 MG CAPSULE PO PRN ×2 (04:05→18:38)
[2022-09-24] MEDS: traMADol 50 MG TABLET PO PRN (05:08)
[2022-09-24] MEDS ORDERED: ALPRAZolam 0.25 MG TABLET PO PRN (06:00)
[2022-09-24 07:49] LABS: BASOPHILS # (AUTO) 0.1 10^3/uL (0.0-0.1); BASOPHILS % (AUTO) 0.7 %; EOSINOPHILS # (AUTO) 0.5 10^3/uL (0.0-0.7); EOSINOPHILS % (AUTO) 6.6 %; HCT - HEMATOCRIT 26.5 % (37.0-47.0); HGB - HEMOGLOBIN 8.1 g/dL (12.0-16.0); LYMPHOCYTES # (AUTO) 1.9 10^3/uL (1.5-3.5); LYMPHOCYTES % (AUTO) 27.9 %; MEAN CORPUSCULAR HEMOGLOBIN 28.7 pg (27.0-31.0); MEAN CORPUSCULAR HGB CONC 30.6 g/dL (32.0-36.0); MEAN PLATELET VOLUME 10.2 fL (7.9-10.8); MONOCYTES # (AUTO) 1.1 10^3/uL (0.0-1.0); MONOCYTES % (AUTO) 15.4 %; NEUTROPHILS # (AUTO) 3.3 10^3/uL (1.5-6.6); NEUTROPHILS % (AUTO) 48.8 %; PLT - PLATELET COUNT 251 10^3/uL (130-450); RED BLOOD COUNT 2.82 10^6/uL (4.20-5.40); RED CELL DISTRIBUTION WIDTH 14.7 % (12.0-15.0); WHITE BLOOD COUNT 6.8 x10^3/uL (4.8-10.8)
[2022-09-24 08:07] LABS: BUN - BLOOD UREA NITROGEN 21 mg/dL (6-20); CALCIUM 9.2 mg/dL (8.5-10.3); CARBON DIOXIDE - CO2 28 mmol/L (21-32); CHLORIDE 108 mmol/L (101-111); CREATININE 1.6 mg/dL (0.4-1.0); GFR - MDRD 31 (>89); GLUCOSE 93 mg/dL (70-100); SODIUM 142 mmol/L (135-145)
[2022-09-24 08:16] LABS: CRP - C-REACTIVE PROTEIN < 1.0 mg/dL (0-1.0)
[2022-09-24] MEDS: predniSONE 5 MG TABLET PO SCH (15:28)
[2022-09-24] MEDS: ASPIRIN EC 81 MG TABLET PO SCH (15:28)
[2022-09-24] MEDS: SACCHAROMYCES BOULARDII 250 MG CAPSULE PO SCH ×2 (15:29→16:11)
[2022-09-24] MEDS: cefTRIAXone 1 GM in SODIUM CHLORIDE 0.9% MINIBAG 100 ML IV SCH (15:29)
[2022-09-24] MEDS: carvediloL 12.5 MG TABLET PO SCH ×2 (15:29→21:38)
[2022-09-24] MEDS: APIXABAN 5 MG TABLET PO SCH ×2 (15:29→21:38)
[2022-09-24] MEDS: POTASSIUM CHLORIDE 20 MEQ TABLET PO SCH ×2 (15:38→21:38)
[2022-09-24] MEDS: CHOLECALCIFEROL 25 MCG TABLET PO SCH (15:38)
[2022-09-24] MEDS: MULTIVITAMIN W/MINERALS TABLET PO SCH (15:38)
[2022-09-24] MEDS: FUROSEMIDE 40 MG TABLET PO SCH (15:38)
[2022-09-24] MEDS: OMEPRAZOLE 20 MG PO SCH ×2 (15:39→21:39)
[2022-09-24] MEDS: VANCOMYCIN INJ 1 GM in SODIUM CHLORIDE 0.9% 250 ML IV SCH (17:14)
[2022-09-24] MEDS: LIDOCAINE PATCH 5% TOP SCH (18:34)
--- NOTE | 2022-09-24 18:59 | PROVIDER PROGRESS NOTE ---
Assessment/Plan - Problem List (1) Bacteremia due to methicillin resistant Staphylococcus epidermidis Assessment/Plan: Sonali was admitted for abrupt onset of SOB. She had blood cultures drawn on 09/17 that became positive for Staphylococcus Epidermis in all 4 bottles with growth under 24 hours. This amount of growth so quickly, points to a true bacteremia due to MRSE and not a contamination. The last Hospitalist spoke with Infectious Disease at on 09/19 who agreed that it is most likely a true infection. She has not had any ports, IVs, dental procedures, or artificial hardware in her body prior to her admission to us. As such, infectious disease advised that she will need a RANJAN to evaluate for valvular vegetations as a possible source of bacteremia, if she has a normal Echo, she should only need antibiotic therapy for a total of 7-10 days. If she has vegetation, she will need 6 weeks of IV therapy. She had her Echo done here and vegetations could not be ruled out. She went for her RANJAN today and had a normal result, no vegetations. Vancomycin was started 09/19 1g q36h. Cephtriaxone was started 09/17 1g IV qd Plan: - monitor repeat blood cultures when they are resulted - continue vancomycin for a 10 day course - will stop ceftriaxone since vegetation ruled out (2) Pneumonia Impression: The working diagnosis at this point is pneumonia, however she continues to be very nonspecific in her findings. She presented to the ED with severe hypoxia, with O2 sat in the 60s on room air. She was stabilized on a Bipap in the ED and recovered with less laborious breathing and has been stable on 2L of oxygen via nasal cannula. She was not feeling ill leading up to her hypoxia, she had a runny nose that day and that is it. Her increased CRP and Procalcitonin are making us lean towards suspecting pneumonia. She had an elevated WBC on 09/18 at 12.4, on 09/19 it is down to 9.4. 09/19 neutrophilia is at 6.9. She seems to be responding to antibiotic therapy. CXR on 09/17 showed bilateral mixed interstitial and alveolar opacity suggestive of penumonia, less likely aspiration or edema. 09/18 that showed improved aeration, decrease in interstitial prominence. Likely atelectasis at the lung bases. Stable right sided PICC line. She was started on Azithromycin 500mg IV for 3 doses and Cephtriaxone 1g for empiric therapy. She has continued cephtriaxone 1g qd since 09/17 and started vancomycin 1g IV q36h on 09/19. Her procalcitonin is improving. 32.34>> 17.30, and CRP improving 20>> 8>> 3 WBC count is within normal limits Neutrophils are within normal limits Plan: -Continue O2 supplement, target sats are 90-92%. 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 Rales heard at the bases bilaterally, this is likely contributing to her hypoxia. She is stable on 2L oxygen, with sats at 97%. She is on a home dose of prednisone 2.5mg PO qd which she has been receiving here as well. Plan: - continue prednisone -Will do an oximetry walk test on the day of discharge (4) Acute respiratory failure with hypoxia Impression: Sonali was admitted for abrupt onset of SOB that started 09/16 and woke her up from sleep. Her oxygen was in the 60s on room air when EMS arrived and she was started on a nonrebreather. She was put on bipap 100% Fi02 in the ED. When her breathing became less laborious they removed bipap and she was saturating 96% on 2L of oxygen. The last Hospitalist had seen her a few times without her oxygen on while she was at rest in bed 09/19 she walked to the bathroom and desaturated to 86%. She was moved to [facility] on 09/19 Plan: -continue suppl O2, target sats are at least 90-92% -Will do an oximetry walk test on the day of discharge (5) Acute on Chronic kidney disease Impression: Since admission her creat has been 1.6>> 1.7>> 1.5. Based on her history of labs here, she seems to have had chronic kidney disease stage 3 with GFR between(30- 69). Her creat frank from 1.4 to 2.0 today. It is likely from being on Lasix twice daily. Plan: -We decreased her Lasix to just once daily and gave normal saline 1 L at 40 cc/hr Avoid nephrotoxins Follow BMP day (6) Congestive heart failure Impression: She has a history of CHF that is managed by lasix. She is compliant with her lasix 40mg BID, and had an echo in November 2021 that was normal. Her CXR on 09/18 was read and thought to be more similar to pneumonia than edema. However, her BNP was 354 and she responded to lasix and antibiotics. It is still unclear if the etiology of her SOB this admission is a CHF exacerbation or due to pneumonia. 09/19 her BNP frank to 750. Echo was done therefore and showed a preserved LVEF of 60% Plan: -We decreased her Lasix to just once daily and gave normal saline 1 L at 40 cc/hr -Will do an oximetry walk test on the day of discharge (7) Dyslipidemia Impression: Sonali has a history of dyslipidemia that is managed with lovastatin 40mg qpm. Plan: She is managed here with Lipitor 20mg qpm, since Lovastatin is not on hosp formulary.. (8) GERD (gastroesophageal reflux disease) Impression: She has a history of GERD with Tao's esophagus. Plan: She is managed with Famotidine 20mg BID, continuing this while she is here. (9) History of stroke Impression: She has a history of stroke with residual L sided mild weakness, and is managed by being on Eliquis. Continue Eliquis 5mg PO BID. (10) Hypertension Impression: Hypertension is managed with Carvedilol 12.5mg PO BID. Allergy to BETY inhibitors is noted. Plan: - continue carvedilol - Current Meds Current Meds: Current Medications Generic Name Dose Route Start Last Admin Trade Name Freq PRN Reason Stop Dose Admin Acetaminophen 650 mg 09/17/22 05:22 09/24/22 15:28 Acetaminophen 325 Mg Tablet PO 650 mg Q4HR PRN Administration Pain 1 to 4, or Fever Apixaban 5 mg 09/17/22 21:00 09/24/22 15:29 Apixaban 5 Mg Tablet PO 5 mg BID JENNYFER Administration Aspirin 81 mg 09/18/22 09:00 09/24/22 15:28 Aspirin Ec 81 Mg Tablet PO 81 mg DAILY JENNYFER Administration Atorvastatin Calcium 20 mg 09/17/22 21:00 09/23/22 20:22 Atorvastatin 10 Mg Tablet PO 20 mg QPM JENNYFER Administration Calcium Carbonate/Glycine 500 mg 09/19/22 20:57 09/21/22 05:06 Calcium Carbonate Chew 500 Mg Tablet PO 500 mg BID PRN Administration INDIGESTION Carvedilol 12.5 mg 09/18/22 13:13 09/24/22 15:29 Carvedilol 12.5 Mg Tablet PO 12.5 mg BID [facility] Administration Cholecalciferol 50 mcg 09/20/22 17:00 09/24/22 15:38 Cholecalciferol 25 Mcg Tablet PO Not Given DAILY JENNYFER Furosemide 40 mg 09/24/22 09:00 09/24/22 15:38 Furosemide 40 Mg Tablet PO Not Given DAILY JENNYFER Ceftriaxone Sodium 1 gm/ 100 mls @ 200 mls/hr 09/17/22 09:00 09/24/22 16:28 Sodium Chloride IV Infused DAILY JENNYFER Infusion Vancomycin HCl 1 gm/ Sodium 250 mls @ 167 mls/hr 09/24/22 17:00 09/24/22 18:56 Chloride IV Infused Q36H [facility] Infusion Lidocaine 1 patch 09/18/22 09:00 09/24/22 18:34 Lidocaine Patch 5% TOP 1 patch DAILY JENNYFER Administration Loperamide HCl 2 mg 09/22/22 07:38 09/24/22 18:38 Loperamide 2 Mg Capsule PO 2 mg QID PRN Administration Diarrhea Multivitamins/Minerals 1 tab 09/20/22 17:00 09/24/22 15:38 Multivitamin W/Minerals Tablet PO Not Given DAILYWM [facility] Ondansetron HCl 4 mg 09/17/22 05:22 09/22/22 10:53 Ondansetron 4 Mg/2 Ml Vial IVP 4 mg Q6HR PRN Administration Nausea / Vomiting Omeprazole 20mg 2 each 09/21/22 21:00 09/24/22 15:39 Capsule PO 2 each BID [facility] Administration Potassium Chloride 20 meq 09/17/22 21:00 09/24/22 15:38 Potassium Chloride 20 Meq Tablet PO Not Given BID [facility] Prednisone 2.5 mg 09/18/22 08:00 09/24/22 15:28 Prednisone 5 Mg Tablet PO 2.5 mg DAILYWM [facility] Administration Saccharomyces Boulardii 250 mg 09/22/22 08:00 09/24/22 16:11 Saccharomyces Boulardii 250 Mg Capsule PO Not Given BIDWM [facility] Sodium Chloride 10 ml 09/17/22 09:00 09/24/22 16:37 Sodium Chloride Flush 0.9% 10 Ml Syringe IVP 10 ml 0100,0900,1700 [facility] Administration Sodium Chloride 10 ml 09/17/22 05:22 09/22/22 10:53 Sodium Chloride Flush 0.9% 10 Ml Syringe IVP 10 ml PRN PRN Administration NEEDED PER PROVIDER ORDERS Tizanidine HCl 4 mg 09/17/22 21:00 09/23/22 20:24 Tizanidine 4 Mg Tablet PO 4 mg QPM JENNYFER Administration Tramadol HCl 100 mg 09/17/22 14:42 09/24/22 05:08 Tramadol 50 Mg Tablet PO 100 mg Q6HR PRN Administration PAIN - Lab Result Fish Bone Diagrams: 09/24/22 07:35 09/24/22 07:35 - Additional Planning My Orders: My Active Orders 09/24/22 09:00 Furosemide [Lasix] 40 mg PO DAILY 09/24/22 Dinner Regular Diet [DIET] 09/24/22 17:00 Vancomycin Inj [Vancomycin] 1 gm Sodium Chloride 0.9% [Normal Saline 0.9%] 250 ml IV Q36H Subjective - Subjective Patient Reports: Other (Pt not een before she left for [facility] to have RANJAN, then return. Seen after.) Objective Vital Signs: Vital Signs - 24 hr 09/23/22 09/24/22 09/24/22 22:10 06:37 07:00 Temperature 36.6 C Heart Rate [ 73 Brachial] Respiratory 20 Rate Blood Pressure 127/78 [Left Brachial artery] Blood Pressure [Right Radial artery] O2 Saturation 93 If not protocol 1 1 1 : Oxygen Flow, liters/minute 09/24/22 09/24/22 14:43 15:40 Temperature 36.6 C 36.3 C L Heart Rate [ 79 77 Brachial] Respiratory 18 18 Rate Blood Pressure [Left Brachial artery] Blood Pressure 152/70 H 163/72 H [Right Radial artery] O2 Saturation 95 98 If not protocol 1 1 : Oxygen Flow, liters/minute Oxygen O2 Source Nasal cannula I&O (Last 24 Hrs): Intake and Output Totals x24h 09/22/22 09/23/22 09/24/22 23:59 23:59 23:59 Intake Total 1360 1470 1271.333 Output Total 750 300 0 Balance 610 1170 1271.333 General: Alert HEENT: Mucous membr. moist/pink Neck: Supple Cardiovascular: Regular rate Respiratory: No respiratory distress (On O2 suppl via n.c.) Abdomen: No tenderness Extremities: No edema - Results Results: Laboratory Results WBC 6.8 x10^3/uL (4.8-10.8) 09/24/22 07:35 RBC 2.82 10^6/uL (4.20-5.40) L 09/24/22 07:35 Hgb 8.1 g/dL (12.0-16.0) L 09/24/22 07:35 Hct 26.5 % (37.0-47.0) L 09/24/22 07:35 MCV 94.0 fL (81.0-99.0) 09/24/22 07:35 MCH 28.7 pg (27.0-31.0) 09/24/22 07:35 MCHC 30.6 g/dL (32.0-36.0) L 09/24/22 07:35 RDW 14.7 % (12.0-15.0) 09/24/22 07:35 Plt Count 251 10^3/uL (130-450) 09/24/22 07:35 MPV 10.2 fL (7.9-10.8) 09/24/22 07:35 Neut # (Auto) 3.3 10^3/uL (1.5-6.6) 09/24/22 07:35 Lymph # (Auto) 1.9 10^3/uL (1.5-3.5) 09/24/22 07:35 Hill # (Auto) 1.1 10^3/uL (0.0-1.0) H 09/24/22 07:35 Eos # (Auto) 0.5 10^3/uL (0.0-0.7) 09/24/22 07:35 Baso # (Auto) 0.1 10^3/uL (0.0-0.1) 09/24/22 07:35 Absolute Nucleated RBC 0.00 x10^3/uL 09/24/22 07:35 Nucleated RBC % 0.0 /100WBC 09/24/22 07:35 Bld Gas Analysis Time 0314 09/17/22 03:12 Sample Site RIGHT BRACHIAL 09/17/22 03:12 ABG pH 7.37 (7.35-7.45) 09/17/22 03:12 ABG pCO2 28 mmHg (34-45) L 09/17/22 03:12 ABG pO2 76 mmHg (80-100) L 09/17/22 03:12 ABG HCO3 15.5 mmol/L (22.0-26.0) L 09/17/22 03:12 ABG Total CO2 16.4 MMOL/L (21.0-29.0) L 09/17/22 03:12 ABG O2 Saturation 94 % (94-98) 09/17/22 03:12 ABG Base Excess -8.4 mmol/L (-2.0-3.0) L 09/17/22 03:12 Jt Test NOT APPLICABLE 09/17/22 03:12 VBG pH 7.391 (7.31-7.41) 09/20/22 05:58 Ionized Calcium 1.24 mmol/L (1.15-1.33) 09/20/22 05:58 O2 Delivery Device BiPAP 09/17/22 03:12 Vent Mode SYNCHRONOUS/TIMES 09/17/22 03:12 FiO2 100.00 09/17/22 03:12 Pressure Support Vent 7 cmH2O 09/17/22 03:12 EPAP 5 cmH2O 09/17/22 03:12 IPAP 12 cmH2O 09/17/22 03:12 Sodium 142 mmol/L (135-145) 09/24/22 07:35 Potassium 4.0 mmol/L (3.5-5.0) 09/24/22 07:35 Chloride 108 mmol/L (101-111) 09/24/22 07:35 Carbon Dioxide 28 mmol/L (21-32) 09/24/22 07:35 Anion Gap 6.0 (6-13) 09/24/22 07:35 BUN 21 mg/dL (6-20) H 09/24/22 07:35 Creatinine 1.6 mg/dL (0.4-1.0) H 09/24/22 07:35 Estimated GFR (MDRD) 31 (>89) L 09/24/22 07:35 Glucose 93 mg/dL (70-100) 09/24/22 07:35 Lactic Acid 1.4 mmol/L (0.5-2.2) 09/17/22 21:14 Calcium 9.2 mg/dL (8.5-10.3) 09/24/22 07:35 Phosphorus 2.9 mg/dL (2.5-4.6) 09/20/22 05:58 Magnesium 1.7 mg/dL (1.7-2.8) 09/21/22 05:30 Total Bilirubin 0.6 mg/dL (0.2-1.0) 09/17/22 02:51 AST 19 IU/L (10-42) 09/17/22 02:51 ALT 14 IU/L (10-60) 09/17/22 02:51 Alkaline Phosphatase 88 IU/L (42-121) 09/17/22 02:51 Troponin I High Sens 9.1 ng/L (2.3-14.8) 09/18/22 13:30 C-Reactive Protein < 1.0 mg/dL (0-1.0) 09/24/22 07:35 B-Natriuretic Peptide 750 pg/mL (5-100) H 09/19/22 05:00 Total Protein 6.9 g/dL (6.7-8.2) 09/17/22 02:51 Albumin 3.7 g/dL (3.2-5.5) 09/17/22 02:51 Globulin 3.2 g/dL (2.1-4.2) 09/17/22 02:51 Albumin/Globulin Ratio 1.2 (1.0-2.2) 09/17/22 02:51 Procalcitonin 17.30 ng/mL (<0.5) H* 09/20/22 05:58 Nasal Adenovirus (PCR) NOT DETECTED 09/17/22 03:20 Nasal B. parapertussis DNA (PCR) NOT DETECTED 09/17/22 03:20 Nasal Coronavir 229E PCR NOT DETECTED 09/17/22 03:20 Nasal Coronavir HKU1 PCR NOT DETECTED 09/17/22 03:20 Nasal Coronavir NL63 PCR NOT DETECTED 09/17/22 03:20 Nasal Coronavir OC43 PCR NOT DETECTED 09/17/22 03:20 Nasal Enterovir/Rhinovir PCR NOT DETECTED 09/17/22 03:20 Nasal Influenza B PCR NOT DETECTED 09/17/22 03:20 Nasal Influenza A PCR NOT DETECTED 09/17/22 03:20 Nasal Parainfluen 1 PCR NOT DETECTED 09/17/22 03:20 Nasal Parainfluen 2 PCR NOT DETECTED 09/17/22 03:20 Nasal Parainfluen 3 PCR NOT DETECTED 09/17/22 03:20 Nasal Parainfluen 4 PCR NOT DETECTED 09/17/22 03:20 Nasal RSV (PCR) NOT DETECTED 09/17/22 03:20 Nasal Screen MRSA (PCR) NEGATIVE (NEGATIVE) 09/17/22 13:55 Nasal B.pertussis DNA PCR NOT DETECTED 09/17/22 03:20 Nasal C.pneumoniae (PCR) NOT DETECTED 09/17/22 03:20 Douglas Human Metapneumo PCR NOT DETECTED 09/17/22 03:20 Nasal M.pneumoniae (PCR) NOT DETECTED 09/17/22 03:20 Nasal SARS-CoV-2 (PCR) NOT DETECTED 09/17/22 03:20 Stl C. diff Tox B Gene NEGATIVE (NEGATIVE) 09/19/22 23:40 Last Dose Date Not Reportable 09/22/22 16:15 Last Dose Time Not Reportable 09/22/22 16:15 Vancomycin Trough 30.3 ug/mL (10.0-20.0) H* 09/23/22 16:25 Blood Type A POSITIVE 09/17/22 03:41 Blood Type Recheck A POSITIVE 09/17/22 02:51 Antibody Screen NEGATIVE 09/17/22 03:41 Sepsis Event Note (H) - Evaluation Current Stage of Sepsis: Ruled out
[2022-09-24] MEDS: tiZANidine 4 MG TABLET PO SCH (21:38)
[2022-09-24] MEDS: ATORVASTATIN 10 MG TABLET PO SCH (21:38)
[2022-09-25] MEDS: SODIUM CHLORIDE FLUSH 0.9% 10 ML SYRINGE IVP SCH ×3 (02:25→16:47)
[2022-09-25] MEDS: POTASSIUM CHLORIDE 20 MEQ TABLET PO SCH ×2 (08:51→20:29)
[2022-09-25] MEDS: SACCHAROMYCES BOULARDII 250 MG CAPSULE PO SCH ×2 (08:55→16:47)
[2022-09-25] MEDS: predniSONE 5 MG TABLET PO SCH (08:55)
[2022-09-25] MEDS: carvediloL 12.5 MG TABLET PO SCH ×2 (08:56→20:29)
[2022-09-25] MEDS: ASPIRIN EC 81 MG TABLET PO SCH (08:57)
[2022-09-25] MEDS: MULTIVITAMIN W/MINERALS TABLET PO SCH (08:57)
[2022-09-25] MEDS: CHOLECALCIFEROL 25 MCG TABLET PO SCH (08:57)
[2022-09-25] MEDS: APIXABAN 5 MG TABLET PO SCH ×2 (08:57→20:29)
[2022-09-25] MEDS: cefTRIAXone 1 GM in SODIUM CHLORIDE 0.9% MINIBAG 100 ML IV SCH (08:57)
[2022-09-25] MEDS: OMEPRAZOLE 20 MG PO SCH ×2 (09:00→20:30)
[2022-09-25] MEDS: LOPERAMIDE 2 MG CAPSULE PO PRN (09:09)
[2022-09-25] MEDS ORDERED: ACETAMINOPHEN 325 MG TABLET PO ONE (11:31)
[2022-09-25] MEDS ORDERED: diphenhydrAMINE INJ 50 MG/ML VIAL IVP ONE (11:33)
[2022-09-25] MEDS: traMADol 50 MG TABLET PO PRN ×2 (12:40→20:29)
[2022-09-25] MEDS: FUROSEMIDE 40 MG TABLET PO SCH (12:57)
--- NOTE | 2022-09-25 15:43 | PROVIDER PROGRESS NOTE ---
Assessment/Plan - Problem List (1) Bacteremia due to methicillin resistant Staphylococcus epidermidis Assessment/Plan: Sonali was admitted for abrupt onset of SOB. She had blood cultures drawn on 09/17 that became positive for Staphylococcus Epidermis in all 4 bottles with growth under 24 hours. This amount of growth so quickly, pointed to a true bacteremia due to MRSE and not a contamination. Infectious Disease at contacted on 09/19 and agreed that it is most likely a true infection. She has not had any ports, IVs, dental procedures, or artificial hardware in her body prior to her admission to us. As such, infectious disease advised that she needed a RANJAN to evaluate for valvular vegetations as a possible source of bacteremia, if she has a normal Echo, she should only need antibiotic therapy for a total of 7-10 days. If she has vegetation, she will need 6 weeks of IV therapy. She had her Echo done here and vegetations could not be ruled out. She went for her RANJAN yesterday 09/24 and had a normal result, no vegetations. Today she remembered that she had a 1 week or longer, large open wound on her toe of R foot, it was examined by me today and a scab is still present Vancomycin was started 09/19 1g q36h. Ceftriaxone was started 09/17 1g IV qd Plan: - monitor repeat blood cultures when they are resulted, these are neg to date - continue vancomycin for a 10 day course. Her last dose will be tomorrow,,as calculated by Pharmacist QUAN Valencia. - will stop ceftriaxone since vegetation ruled out, and she has received 9 days (7 needed for PNA) (2) Pneumonia Impression: The working diagnosis is pneumonia, however she continues to be very nonspecific in her findings. She presented to the ED with severe hypoxia, with O2 sat in the 60s on room air. She was stabilized on a Bipap in the ED and recovered with less laborious breathing and has been stable on 2L of oxygen via nasal cannula. She was not feeling ill leading up to her hypoxia, she had a runny nose that day and that is it. Her increased CRP and Procalcitonin are making us lean towards suspecting pneumonia. She had an elevated WBC on 09/18 at 12.4, on 09/19 it is down to 9.4. 09/19 neutrophilia is at 6.9. She seems to be responding to antibiotic therapy. CXR on 09/17 showed bilateral mixed interstitial and alveolar opacity suggestive of penumonia, less likely aspiration or edema. 09/18 that showed improved aeration, decrease in interstitial prominence. Likely atelectasis at the lung bases. Stable right sided PICC line. She was started on Azithromycin 500mg IV for 3 doses and Ceftriaxone 1g for empiric therapy. She has continued cephtriaxone 1g qd since 09/17 and started vancomycin 1g IV q36h on 09/19. Her procalcitonin is improving. 32.34>> 17.30, and CRP improving 20>> 8>> 3 WBC count is within normal limits Neutrophils are within normal limits Plan: -Continue O2 supplement, target sats are 90-92%. -will stop ceftriaxone since vegetation ruled out, and she has received 9 days (7 needed for PNA) (3) Interstitial pneumonitis Impression: History of interstitial pneumonitis at the base of her lungs. Rales heard at the bases bilaterally, this is likely contributing to her hypoxia. She is stable on 2L oxygen, with sats at 97%. She is on a home dose of prednisone 2.5mg PO qd which she has been receiving here as well. Plan: - continue prednisone -Will do an oximetry walk test on the day of discharge (4) Acute respiratory failure with hypoxia Impression: Sonali was admitted for abrupt onset of SOB that started 09/16 and woke her up from sleep. Her oxygen was in the 60s on room air when EMS arrived and she was started on a nonrebreather. She was put on bipap 100% Fi02 in the ED. When her breathing became less laborious they removed bipap and she was saturating 96% on 2L of oxygen. The last Hospitalist had seen her a few times without her oxygen on while she was at rest in bed 09/19 she walked to the bathroom and desaturated to 86%. She was moved to [facility] on 09/19 Plan: -continue suppl O2, target sats are at least 90-92% -Will do an oximetry walk test on the day of discharge, planned for tomorrow (5) Acute on Chronic kidney disease Impression: Since admission her creat has been 1.6>> 1.7>> 1.5. Based on her history of labs here, she seems to have had chronic kidney disease stage 3 with GFR between(30- 69). Her creat frank from 1.4 to 2.0 today. It is likely from being on Lasix twice daily. Plan: -We decreased her Lasix to just once daily and gave normal saline 1 L at 40 cc/hr Avoid nephrotoxins Follow BMP day (6) Congestive heart failure Impression: She has a history of CHF that is managed by lasix. She is compliant with her lasix 40mg BID, and had an echo in November 2021 that was normal. Her CXR on 09/18 was read and thought to be more similar to pneumonia than edema. However, her BNP was 354 and she responded to lasix and antibiotics. It is still unclear if the etiology of her SOB this admission is a CHF exacerbation or due to pneumonia. 09/19 her BNP frank to 750. Echo was done therefore and showed a preserved LVEF of 60% Plan: -We decreased her Lasix to just once daily and gave normal saline 1 L at 40 cc/hr -Will do an oximetry walk test on the day of discharge (7) Dyslipidemia Impression: Sonali has a history of dyslipidemia that is managed with lovastatin 40mg qpm. Plan: She is managed here with Lipitor 20mg qpm, since Lovastatin is not on hosp formulary.. (8) GERD (gastroesophageal reflux disease) Impression: She has a history of GERD with Tao's esophagus. Plan: She is managed with Famotidine 20mg BID, continuing this while she is here. (9) History of stroke Impression: She has a history of stroke with residual L sided mild weakness, and is managed by being on Eliquis. Continue Eliquis 5mg PO BID. (10) Hypertension Impression: Hypertension is managed with Carvedilol 12.5mg PO BID. Allergy to BETY inhibitors is noted. Plan: - continue carvedilol - Current Meds Current Meds: Current Medications Generic Name Dose Route Start Last Admin Trade Name Freq PRN Reason Stop Dose Admin Acetaminophen 650 mg 09/17/22 05:22 09/24/22 15:28 Acetaminophen 325 Mg Tablet PO 650 mg Q4HR PRN Administration Pain 1 to 4, or Fever Apixaban 5 mg 09/17/22 21:00 09/25/22 08:57 Apixaban 5 Mg Tablet PO 5 mg BID JENNYFER Administration Aspirin 81 mg 09/18/22 09:00 09/25/22 08:57 Aspirin Ec 81 Mg Tablet PO 81 mg DAILY JENNYFER Administration Atorvastatin Calcium 20 mg 09/17/22 21:00 09/24/22 21:38 Atorvastatin 10 Mg Tablet PO 20 mg QPM JENNYFER Administration Calcium Carbonate/Glycine 500 mg 09/19/22 20:57 09/21/22 05:06 Calcium Carbonate Chew 500 Mg Tablet PO 500 mg BID PRN Administration INDIGESTION Carvedilol 12.5 mg 09/18/22 13:13 09/25/22 08:56 Carvedilol 12.5 Mg Tablet PO 12.5 mg BID JENNYFER Administration Cholecalciferol 50 mcg 09/20/22 17:00 09/25/22 08:57 Cholecalciferol 25 Mcg Tablet PO 50 mcg DAILY JENNYFER Administration Furosemide 40 mg 09/24/22 09:00 09/25/22 12:57 Furosemide 40 Mg Tablet PO 40 mg DAILY JENNYFER Administration Ceftriaxone Sodium 1 gm/ 100 mls @ 200 mls/hr 09/17/22 09:00 09/25/22 09:30 Sodium Chloride IV Infused DAILY JENNYFER Infusion Vancomycin HCl 1 gm/ Sodium 250 mls @ 167 mls/hr 09/24/22 17:00 09/24/22 18:56 Chloride IV Infused Q36H JENNYFER Infusion Loperamide HCl 2 mg 09/22/22 07:38 09/25/22 09:09 Loperamide 2 Mg Capsule PO 2 mg QID PRN Administration Diarrhea Multivitamins/Minerals 1 tab 09/20/22 17:00 09/25/22 08:57 Multivitamin W/Minerals Tablet PO 1 tab DAILYWM JENNYFER Administration Ondansetron HCl 4 mg 09/17/22 05:22 09/22/22 10:53 Ondansetron 4 Mg/2 Ml Vial IVP 4 mg Q6HR PRN Administration Nausea / Vomiting Omeprazole 20mg 2 each 09/21/22 21:00 09/25/22 09:00 Capsule PO 2 each BID JENNYFER Administration Potassium Chloride 20 meq 09/17/22 21:00 09/25/22 08:51 Potassium Chloride 20 Meq Tablet PO 20 meq BID JENNYFER Administration Prednisone 2.5 mg 09/18/22 08:00 09/25/22 08:55 Prednisone 5 Mg Tablet PO 2.5 mg DAILYWM JENNYFER Administration Saccharomyces Boulardii 250 mg 09/22/22 08:00 09/25/22 08:55 Saccharomyces Boulardii 250 Mg Capsule PO 250 mg BIDWM JENNYFER Administration Sodium Chloride 10 ml 09/17/22 09:00 09/25/22 09:00 Sodium Chloride Flush 0.9% 10 Ml Syringe IVP 10 ml 0100,0900,1700 JENNYFER Administration Sodium Chloride 10 ml 09/17/22 05:22 09/22/22 10:53 Sodium Chloride Flush 0.9% 10 Ml Syringe IVP 10 ml PRN PRN Administration NEEDED PER PROVIDER ORDERS Tizanidine HCl 4 mg 09/17/22 21:00 09/24/22 21:38 Tizanidine 4 Mg Tablet PO 4 mg QPM JENNYFER Administration Tramadol HCl 100 mg 09/17/22 14:42 09/25/22 12:40 Tramadol 50 Mg Tablet PO 100 mg Q6HR PRN Administration PAIN - Lab Result Fish Bone Diagrams: 09/24/22 07:35 09/24/22 07:35 - Additional Planning My Orders: My Active Orders 09/24/22 Dinner Regular Diet [DIET] 09/24/22 17:00 Vancomycin Inj [Vancomycin] 1 gm Sodium Chloride 0.9% [Normal Saline 0.9%] 250 ml IV Q36H 09/25/22 11:31 Transfuse Platelet Pheresis Pk [RC] .ONCE Transfuse RBCs Leukoreduced [RC] .ONCE Subjective - Subjective Patient Reports: Resting Comfortably, No Complaints Objective Vital Signs: Vital Signs - 24 hr 09/24/22 09/25/22 09/25/22 20:00 00:05 07:43 Temperature 36.8 C 36.9 C Heart Rate [ 60 77 Brachial] Respiratory 18 20 Rate Blood Pressure 96/57 L 148/70 H [Left Brachial artery] Blood Pressure [Right Radial artery] O2 Saturation 96 95 If not protocol 1 1 1 : Oxygen Flow, liters/minute 09/25/22 09/25/22 09:05 13:26 Temperature 36.8 C Heart Rate [ 80 Brachial] Respiratory 18 Rate Blood Pressure [Left Brachial artery] Blood Pressure 134/68 H [Right Radial artery] O2 Saturation 97 If not protocol 1 : Oxygen Flow, liters/minute Oxygen O2 Source Room air I&O (Last 24 Hrs): Intake and Output Totals x24h 09/23/22 09/24/22 09/25/22 23:59 23:59 23:59 Intake Total 1470 0680.478 6272 Output Total 300 0 0 Balance 1170 3242.903 4113 General: Alert, Oriented x3 HEENT: Mucous membr. moist/pink, Other (wearing O2 per n.c.) Neck: Supple, No JVD Neuro: Alert, Non Focal Cardiovascular: Regular rate, No murmurs Respiratory: No respiratory distress, Breath sounds nml Abdomen: Normal bowel sounds, Soft Extremities: No clubbing, No edema, Other (Right foot second toe has a small, dry, healed scab at the very tip) - Results Results: Laboratory Results WBC 6.8 x10^3/uL (4.8-10.8) 09/24/22 07:35 RBC 2.82 10^6/uL (4.20-5.40) L 09/24/22 07:35 Hgb 8.1 g/dL (12.0-16.0) L 09/24/22 07:35 Hct 26.5 % (37.0-47.0) L 09/24/22 07:35 MCV 94.0 fL (81.0-99.0) 09/24/22 07:35 MCH 28.7 pg (27.0-31.0) 09/24/22 07:35 MCHC 30.6 g/dL (32.0-36.0) L 09/24/22 07:35 RDW 14.7 % (12.0-15.0) 09/24/22 07:35 Plt Count 251 10^3/uL (130-450) 09/24/22 07:35 MPV 10.2 fL (7.9-10.8) 09/24/22 07:35 Neut # (Auto) 3.3 10^3/uL (1.5-6.6) 09/24/22 07:35 Lymph # (Auto) 1.9 10^3/uL (1.5-3.5) 09/24/22 07:35 Coleman # (Auto) 1.1 10^3/uL (0.0-1.0) H 09/24/22 07:35 Eos # (Auto) 0.5 10^3/uL (0.0-0.7) 09/24/22 07:35 Baso # (Auto) 0.1 10^3/uL (0.0-0.1) 09/24/22 07:35 Absolute Nucleated RBC 0.00 x10^3/uL 09/24/22 07:35 Nucleated RBC % 0.0 /100WBC 09/24/22 07:35 Bld Gas Analysis Time 03109/17/22 03:12 Sample Site RIGHT BRACHIAL 09/17/22 03:12 ABG pH 7.37 (7.35-7.45) 09/17/22 03:12 ABG pCO2 28 mmHg (34-45) L 09/17/22 03:12 ABG pO2 76 mmHg (80-100) L 09/17/22 03:12 ABG HCO3 15.5 mmol/L (22.0-26.0) L 09/17/22 03:12 ABG Total CO2 16.4 MMOL/L (21.0-29.0) L 09/17/22 03:12 ABG O2 Saturation 94 % (94-98) 09/17/22 03:12 ABG Base Excess -8.4 mmol/L (-2.0-3.0) L 09/17/22 03:12 Jt Test NOT APPLICABLE 09/17/22 03:12 VBG pH 7.391 (7.31-7.41) 09/20/22 05:58 Ionized Calcium 1.24 mmol/L (1.15-1.33) 09/20/22 05:58 O2 Delivery Device BiPAP 09/17/22 03:12 Vent Mode SYNCHRONOUS/TIMES 09/17/22 03:12 FiO2 100.00 09/17/22 03:12 Pressure Support Vent 7 cmH2O 09/17/22 03:12 EPAP 5 cmH2O 09/17/22 03:12 IPAP 12 cmH2O 09/17/22 03:12 Sodium 142 mmol/L (135-145) 09/24/22 07:35 Potassium 4.0 mmol/L (3.5-5.0) 09/24/22 07:35 Chloride 108 mmol/L (101-111) 09/24/22 07:35 Carbon Dioxide 28 mmol/L (21-32) 09/24/22 07:35 Anion Gap 6.0 (6-13) 09/24/22 07:35 BUN 21 mg/dL (6-20) H 09/24/22 07:35 Creatinine 1.6 mg/dL (0.4-1.0) H 09/24/22 07:35 Estimated GFR (MDRD) 31 (>89) L 09/24/22 07:35 Glucose 93 mg/dL (70-100) 09/24/22 07:35 Lactic Acid 1.4 mmol/L (0.5-2.2) 09/17/22 21:14 Calcium 9.2 mg/dL (8.5-10.3) 09/24/22 07:35 Phosphorus 2.9 mg/dL (2.5-4.6) 09/20/22 05:58 Magnesium 1.7 mg/dL (1.7-2.8) 09/21/22 05:30 Total Bilirubin 0.6 mg/dL (0.2-1.0) 09/17/22 02:51 AST 19 IU/L (10-42) 09/17/22 02:51 ALT 14 IU/L (10-60) 09/17/22 02:51 Alkaline Phosphatase 88 IU/L (42-121) 09/17/22 02:51 Troponin I High Sens 9.1 ng/L (2.3-14.8) 09/18/22 13:30 C-Reactive Protein < 1.0 mg/dL (0-1.0) 09/24/22 07:35 B-Natriuretic Peptide 750 pg/mL (5-100) H 09/19/22 05:00 Total Protein 6.9 g/dL (6.7-8.2) 09/17/22 02:51 Albumin 3.7 g/dL (3.2-5.5) 09/17/22 02:51 Globulin 3.2 g/dL (2.1-4.2) 09/17/22 02:51 Albumin/Globulin Ratio 1.2 (1.0-2.2) 09/17/22 02:51 Procalcitonin 17.30 ng/mL (<0.5) H* 09/20/22 05:58 Nasal Adenovirus (PCR) NOT DETECTED 09/17/22 03:20 Nasal B. parapertussis DNA (PCR) NOT DETECTED 09/17/22 03:20 Nasal Coronavir 229E PCR NOT DETECTED 09/17/22 03:20 Nasal Coronavir HKU1 PCR NOT DETECTED 09/17/22 03:20 Nasal Coronavir NL63 PCR NOT DETECTED 09/17/22 03:20 Nasal Coronavir OC43 PCR NOT DETECTED 09/17/22 03:20 Nasal Enterovir/Rhinovir PCR NOT DETECTED 09/17/22 03:20 Nasal Influenza B PCR NOT DETECTED 09/17/22 03:20 Nasal Influenza A PCR NOT DETECTED 09/17/22 03:20 Nasal Parainfluen 1 PCR NOT DETECTED 09/17/22 03:20 Nasal Parainfluen 2 PCR NOT DETECTED 09/17/22 03:20 Nasal Parainfluen 3 PCR NOT DETECTED 09/17/22 03:20 Nasal Parainfluen 4 PCR NOT DETECTED 09/17/22 03:20 Nasal RSV (PCR) NOT DETECTED 09/17/22 03:20 Nasal Screen MRSA (PCR) NEGATIVE (NEGATIVE) 09/17/22 13:55 Nasal B.pertussis DNA PCR NOT DETECTED 09/17/22 03:20 Nasal C.pneumoniae (PCR) NOT DETECTED 09/17/22 03:20 Douglas Human Metapneumo PCR NOT DETECTED 09/17/22 03:20 Nasal M.pneumoniae (PCR) NOT DETECTED 09/17/22 03:20 Nasal SARS-CoV-2 (PCR) NOT DETECTED 09/17/22 03:20 Stl C. diff Tox B Gene NEGATIVE (NEGATIVE) 09/19/22 23:40 Last Dose Date Not Reportable 09/22/22 16:15 Last Dose Time Not Reportable 09/22/22 16:15 Vancomycin Trough 30.3 ug/mL (10.0-20.0) H* 09/23/22 16:25 Blood Type A POSITIVE 09/17/22 03:41 Blood Type Recheck A POSITIVE 09/17/22 02:51 Antibody Screen NEGATIVE 09/17/22 03:41 Sepsis Event Note (H) - Evaluation Current Stage of Sepsis: Ruled out
[2022-09-25] MEDS: ATORVASTATIN 10 MG TABLET PO SCH (20:30)
[2022-09-25] MEDS: tiZANidine 4 MG TABLET PO SCH (20:30)
[2022-09-25] MEDS ORDERED: LIDOCAINE PATCH 5% TOP SCH (21:00)
[2022-09-26] MEDS: VANCOMYCIN INJ 1 GM in SODIUM CHLORIDE 0.9% 250 ML IV SCH (04:38)
[2022-09-26] MEDS: SODIUM CHLORIDE FLUSH 0.9% 10 ML SYRINGE IVP SCH ×2 (04:38→10:43)
[2022-09-26 07:53] VITALS: BP 145/69
[2022-09-26] MEDS: POTASSIUM CHLORIDE 20 MEQ TABLET PO SCH (08:46)
[2022-09-26] MEDS: predniSONE 5 MG TABLET PO SCH (08:46)
[2022-09-26] MEDS: CHOLECALCIFEROL 25 MCG TABLET PO SCH (08:47)
[2022-09-26] MEDS: SACCHAROMYCES BOULARDII 250 MG CAPSULE PO SCH (08:48)
[2022-09-26] MEDS: carvediloL 12.5 MG TABLET PO SCH (08:48)
[2022-09-26] MEDS: ASPIRIN EC 81 MG TABLET PO SCH (08:48)
[2022-09-26] MEDS: FUROSEMIDE 40 MG TABLET PO SCH (08:48)
[2022-09-26] MEDS: APIXABAN 5 MG TABLET PO SCH (08:48)
[2022-09-26] MEDS: OMEPRAZOLE 20 MG PO SCH (08:49)
[2022-09-26] MEDS: MULTIVITAMIN W/MINERALS TABLET PO SCH (08:51)
--- NOTE | 2022-09-26 10:07 | Discharge Plan ---
Discharge Plan Problem Reviewed?: Yes Disposition: Home, Self Care Condition: Stable Diet: Regular Activity Restrictions: Activity as Tolerated Shower Restrictions: No Driving Restrictions: No Health Concerns: You were hospitalized due to sudden shortness of breath that appears to have been caused a pneumonia plus by the stress of having bacteremia (bacteria in your bloodstream); the blood cultures showed you had methicillin-resistant Staph Epi. You completed a 10-day course of IV antibiotics. The RANJAN showed no evidence of vegetations (bacterial growth) on your valves (RANJAN was done at [facility]). In the end, we think the cause of the blood stream infection was the toe wound that you remembered you recently had, which has now healed. You are being discharged home and may resume all your usual pre-hospital medications. You were tested to see if you need a new order for home oxygen and you do not. You should have a hospital follow-up appointment with your Primary Care Provider in the next 1 or 2 weeks. Plan of Treatment: As above. Care Goals: Improvement in symptoms and stabilization are the goals. Assessment: The patient understands and is agreeable with the plan. Additional Instructions or Follow Up instructions: If you have new or worsening symptoms, call your PCP for advice or come to the ER. No Smoking: If you smoke, Please STOP! Call for help. Follow-up with: BETO RODGERS MD [Primary Care Provider] -
--- NOTE | 2022-09-26 11:19 | DISCHARGE SUMMARY ---
Discharge Summary Admit Date: 09/17/22 Discharge Date: 09/26/22 Discharging Provider: Dr Shea Toth Code Status: Do Not Attempt Resuscitation Condition at Discharge: Stable Discharge Disposition: 01 Home, Self Care - HPI History of Present Illness: This is 81-year-old causasian female who was seen in the emergency room due to complaint of shortness of breath which suddenly started last night and she woke up from her sleep. She had mild chills last evening. Patient denies any chest pain. Patient denies any diarrhea or dysuria. She had 1 episode of vomiting in the emergency room today. She denies any focal weakness numbness tingling headache etc. Patient is on Xarelto at home due to Hx of stroke. Recently her Lasix was decreased by PCP from 80 mg twice a day to 40 mg twice a day. Patient is not using any oxygen at home. Her oxygen saturation was in the 60s on room air therefore she was started on nonrebreather by EMS. Patient is currently on the BiPAP 100% FiO2. Patient also received IV Rocephin, Azithromycin and IV Lasix in the emergency room. ABG showed pH 7.37 with PO2 of 76 on 100% FiO2 via BiPAP, PCO2 of 28, Lactic Acid 5.1, BNP 354, viral tests are negative. Chest x- ray showed bilateral infiltrates and edema. She is being admitted to the ICU to treat acute respiratory failure with hypoxia, bilateral pneumonia and congestive heart failure. - HOSPITAL COURSE Hospital Course: (1) Bacteremia due to methicillin resistant Staphylococcus epidermidis Sonali was admitted for abrupt onset of SOB. She had blood cultures drawn on 09/17 that became positive for Staphylococcus Epidermis in all 4 bottles with growth under 24 hours. This amount of growth so quickly, pointed to a true ba cteremia due to MRSE and not a contamination. Infectious Disease at was contacted on 09/19 and agreed that it is most likely a true infection. She did not had any ports, IVs, dental procedures, or artificial hardware in her body prior to this admission. She had a normal Echo here. As such, Infectious Disease advised that she needed a RANJAN to evaluate for valvular vegetations as a possible source of bacteremia. She needed to be transferred to [facility] for her RANJAN done 09/24 and had a normal result, no vegetations. On the day before discharge, she remembered that she had a 1 week or longer, large open wound on the toe of her R foot after Podiatry removed an ingrown toenail 3 weeks before. That toe had a scab still present, but was overall healed and clean. She completed a 10- day course of Vancomycin while here. (2) Pneumonia The working diagnosis was pneumonia, however she had nonspecific findings. She presented to the ED with severe hypoxia, O2 sat in the 60s on room air. She was stabilized on a Bipap in the ED and recovered with less laborious breathing and then needed 2L of oxygen via nasal cannula. She was not feeling ill leading up to her hypoxia, but had a runny nose. Her increased CRP and Procalcitonin made us lean towards suspecting pneumonia. She had an elevated WBC on 09/18 at 12.4. CXR on 09/17 showed bilateral mixed interstitial and alveolar opacity suggestive of pneumonia, less likely aspiration or edema. On 09/18 it showed improved aeration, decrease in interstitial prominence and likely atelectasis at the lung bases. She was put on Azithromycin 500 mg x3 days and Ceftriaxone iv for 9 days, and seemed to be responding to antibiotic therapy. Her procalcitonin improved 32.34>> 17.30, and CRP improved 20>> 8>> 3. (3) Interstitial pneumonitis History of interstitial pneumonitis at the base of her lungs. Rales were heard at the bases bilaterally, and this was likely contributing to her hypoxia. She needed 2L/min oxygen via n.c. She was on a home dose of prednisone 2.5mg PO qd, which she received here as well. (4) Acute respiratory failure with hypoxia Sonali was admitted for abrupt onset of SOB that started 09/16 and woke her up from sleep. Her oxygen was in the 60s on room air when EMS arrived and she was started on a nonrebreather. She was put on bipap at 100% Fi02 in the ED. When her breathing became less laborious they removed bipap and she stabilized on 2L of oxygen. This was slowly weaned down. On the day of discharge, she was tested if she needed Home O2, and she did not. (5) Acute on Chronic kidney disease At admission, her creat was 1.6>> 1.7>> 1.5>> 2.0. She seems to have chronic kidney disease stage 3 with GFR between(30-69). We decreased her Lasix to just once daily and gave normal saline 1 L at 40 cc/hr. At discharge, her creat was 1.6. (6) Congestive heart failure She has a history of CHF that is managed by Lasix 40mg BID, and she had an Echo in November 2021 that showed normal LVEF. Her CXR on 09/18 was read as more likely pneumonia than edema. However, her BNP was 354. She responded to Lasix and antibiotics. It was still unclear if the etiology of her SOB this admission was a CHF exacerbation or due to pneumonia. Echo was done therefore, and showed a preserved LVEF of 60%, but diastolic dysfunction was seen. (7) Dyslipidemia This is managed with Lovastatin 40mg qpm. She was managed here with Lipitor 20mg qpm, since Lovastatin is not on hosp formulary.. (8) GERD (gastroesophageal reflux disease) She has a history of GERD with Tao's esophagus, and we continued her Famotidine 20mg (9) History of stroke She has a history of stroke with residual L sided mild weakness, and is managed on Eliquis. We continued Eliquis 5mg PO BID. (10) Hypertension Hypertension was managed with her usual Carvedilol 12.5mg PO BID. Allergy to BETY inhibitors is noted. - ALLERGIES Allergies/Adverse Reactions: Allergies Allergy/AdvReac Type Severity Reaction Status Date / Time BETY Inhibitors Allergy Respiratory Verified 09/17/22 09:48 latex Allergy Rash Verified 09/17/22 09:48 levofloxacin [From Levaquin] Allergy Rash Verified 09/17/22 09:48 Sulfa (Sulfonamide Allergy Hives Verified 09/17/22 09:48 Antibiotics) - MEDICATIONS Home Medications: Ambulatory Orders Medication Instructions Recorded Confirmed Alprazolam [Xanax] 0.25 mg PO QPM PRN 09/17/22 09/17/22 Aspirin EC [Ecotrin] 81 mg PO DAILY 09/17/22 09/17/22 Carvedilol [Coreg] 12.5 mg PO BID 09/17/22 09/17/22 Diclofenac Sodium 1% Gel [Voltaren 1 applic TOP QID PRN 09/17/22 09/17/22 Gel] Estrogens, Conjugated Cream 1 applic TOP DAILY 09/17/22 09/17/22 [Premarin Cream] Famotidine [Pepcid] 20 mg PO BID 09/17/22 09/17/22 Furosemide [Lasix] 40 mg PO BID 09/17/22 09/17/22 Lidocaine Patch 5% [Lidoderm Patch] 1 - 2 patch TOP DAILY 09/17/22 09/17/22 Lovastatin 40 mg PO QPM 09/17/22 09/17/22 Omeprazole 40 mg PO BID 09/17/22 09/17/22 Ondansetron Odt [Zofran Odt] 4 mg PO Q8HR PRN 09/17/22 09/17/22 Potassium Chloride 20 meq PO BID 09/17/22 09/17/22 Rivaroxaban [Xarelto] 15 mg PO QDDINNER 09/17/22 09/17/22 Tizanidine HCl 4 mg PO QPM 09/17/22 09/17/22 Tramadol HCl [Ultram] 1 - 2 tab PO Q6HR PRN 09/17/22 09/17/22 predniSONE [Prednisone] 2.5 mg PO DAILY 09/17/22 09/17/22 - PHYSICAL EXAM AT DISCHARGE General Appearance: positive: No acute distress, Alert, Other (Appears younger than stated age) Eyes Bilateral: positive: Normal inspection, EOMI ENT: positive: ENT inspection nml, No signs of dehydration Neck: positive: Nml inspection, No JVD Respiratory: positive: No respiratory distress, Breath sounds nml Cardiovascular: positive: Regular rate & rhythm, No murmur Abdomen: positive: Non-tender, Nml bowel sounds, No distention Skin: positive: No rash, Warm, Dry Extremities: positive: Non-tender, No pedal edema Neurologic/Psychiatric: positive: Oriented x3, Sensation nml - LABS Result Diagrams: 09/24/22 07:35 09/24/22 07:35 - DIAGNOSTIC IMAGING Diagnostic Imaging Results: Final report reviewed - SEPSIS Current Stage of Sepsis: Ruled out - FOLLOW UP Follow Up: See PCP in 1-2 weeks for a hospital follow up visit. - TIME SPENT Time Spent in Discharge (Minutes): 30
== END 2022-09-26 12:00 | disposition home or self-care (01) | DRG 189 ==
LOC: EDUNIT# → ED 02:50 → MERGE 02:50 → ICU 05:22 → MS2 09-19 10:43
PROVIDERS: ADMIT Specialist; ATTEND Internal Medicine
PROC: 02HV33Z Insertion of Infusion Device into Superior Vena Cava, Percutaneous Approach (ICD-10-PCS; principal; 2022-09-18)
DX: J96.01 Acute respiratory failure with hypoxia (principal); I11.0 Hypertensive heart disease with heart failure; I50.9 Heart failure, unspecified; J18.9 Pneumonia, unspecified organism; I50.43 Acute on chronic combined systolic (congestive) and diastolic (congestive) heart failure; Z20.822 Contact with and (suspected) exposure to COVID-19; Z86.73 Personal history of transient ischemic attack (TIA), and cerebral infarction without residual deficits; I13.0 Hypertensive heart and chronic kidney disease with heart failure and stage 1 through stage 4 chronic kidney disease, or unspecified chronic kidney disease; D64.9 Anemia, unspecified; G89.29 Other chronic pain; M54.9 Dorsalgia, unspecified; N17.9 Acute kidney failure, unspecified; I69.354 Hemiplegia and hemiparesis following cerebral infarction affecting left non-dominant side; E87.20 Acidosis, unspecified; R78.81 Bacteremia; B95.7 Other staphylococcus as the cause of diseases classified elsewhere; J84.89 Other specified interstitial pulmonary diseases; N18.30 Chronic kidney disease, stage 3 unspecified; E78.5 Hyperlipidemia, unspecified; K21.9 Gastro-esophageal reflux disease without esophagitis; Z66 Do not resuscitate; I48.91 Unspecified atrial fibrillation; K22.70 Barrett's esophagus without dysplasia; R25.2 Cramp and spasm; Z86.718 Personal history of other venous thrombosis and embolism; Z87.891 Personal history of nicotine dependence; Z79.01 Long term (current) use of anticoagulants
CPT/HCPCS: 36415; 36600; 71045; 80048; 80053; 80202; 82330; 82803; 83605; 83735; 83880; 84100; 84145; 84484; 85025; 86140; 86850; 86900; 86901; 87040; 87077; 87150; 87181; 87493; 87633; 93005; 93306; 94660; 94761; 96365; 96375; 99285; 99291; A9270; C1751; J3370; J7512; 86920

== ENCOUNTER 2022-11-02 15:48 | Outpatient (CLI) | payer MEDICARE, OTHER | END 2022-11-02 15:49 | disposition critical access hospital (66) | LOC: EMS 15:48 | DX: R11.2 Nausea with vomiting, unspecified (principal); R19.7 Diarrhea, unspecified | CPT/HCPCS: A0425; A0427 ==

== ENCOUNTER 2022-11-02 16:13 | Emergency (ER) | payer MEDICARE, OTHER ==
[2022-11-02] MEDS ORDERED: SODIUM CHLORIDE 0.9% 1,000 ML IV STA (16:23)
--- OUTSIDE RECORDS SUMMARY | 2022-11-02 16:23 | EXTERNAL MEDICAL SUMMARY RPT | Continuity of Care Document ---
:1940 Author Organization [facility] Address [address] [place] [address] Phone Care Team Providers Name Role Phone Unavailable Unavailable Unavailable Brannon Broussard Md Unavailable Unavailable Merari Patient Registrar, Any Unavailable Unavail able Allergies No information. Encounters No information. Functional Status No information. Immunizations No information. Medications date description facility 2022-11-02 00:00 tramadol All 2022-11-02 00:00 furosemide All 2022-11-02 00:00 rivaroxaban All 2022-11-02 00:00 rivaroxaban All 2022-11-02 00:00 ipratropium bromide All 2022-11-02 00:00 omeprazole All 2022-11-02 00:00 carvedilol All 2022-11-02 00:00 ipratropium bromide All 2022-11-02 00:00 alprazolam All 2022-11-02 00:00 tizanidine All 2022-11-02 00:00 furosemide All 2022-11-02 00:00 carvedilol All 2022-11-02 00:00 furosemide All 2022-11-02 00:00 tramadol All 2022-11-02 00:00 tizanidine All 2022-11-02 00:00 carvedilol All 2022-11-02 00:00 ipratropium bromide All 2022-11-02 00:00 ipratropium bromide All 2022-11-02 00:00 omeprazole All 2022-11-02 00:00 rivaroxaban All 2022-11-02 00:00 hydrocodone-acetaminophen All 2022-11-02 00:00 alprazolam All 2022-11-02 00:00 tizanidine All 2022-11-02 00:00 alprazolam All 2022-11-02 00:00 omeprazole All 2022-11-02 00:00 omeprazole All 2022-11-02 00:00 tramadol All 2022-11-02 00:00 hydrocodone-acetaminophen All 2022-11-02 00:00 carvedilol All 2022-11-02 00:00 tizanidine All 2022-11-02 00:00 hydrocodone-acetaminophen All 2022-11-02 00:00 rivaroxaban All 2022-11-02 00:00 tramadol All 2022-11-02 00:00 hydrocodone-acetaminophen All 2022-11-02 00:00 furosemide All 2022-11-02 00:00 alprazolam All 2022-11-02 00:00 rivaroxaban All 2022-11-02 00:00 rivaroxaban All Problems date description facility 2022-11-02 00:00 Nausea, vomiting and diarrhea All 2022-11-02 00:00 Nausea with vomiting All 2022-11-02 00:00 Nausea with vomiting, unspecified All Procedures date description facility 2022-11-02 00:00 Visit Code Hold All Results/Labs No information. Social History date description facility 2022-11-02 00:00 Unknown if ever smoked All 2022-11-02 00:00 Unknown if ever smoked All Vital Signs date measurement value units 2022-11-02 00:00 BMI 22.57 kg/m2 2022-11-02 00:00 BP_diastolic 64 mmHg 2022-11-02 00:00 BP_systolic 99 mmHg 2022-11-02 00:00 heart_rate 89 /min 2022-11-02 00:00 heart_rate 91 /min 2022-11-02 00:00 height_metric 162.56 cm 2022-11-02 00:00 height_standard 64 in 2022-11-02 00:00 respiration_rate 18 /min 2022-11-02 00:00 temperature_metric 36.94 C 2022-11-02 00:00 temperature_standard 98.5 F 2022-11-02 00:00 weight_metric 59.42 kg 2022-11-02 00:00 weight_standard 131 lb
--- NOTE | 2022-11-02 16:24 | ED Physician Documentation ---
History of Present Illness - Stated complaint Stated Complaint: N/V/D - History obtained from History obtained from: Patient, Family, EMS - History of Present Illness Timing: How many days ago (3) Pain level max: 3 Pain level now: 2 - Additonal information Additional information: 82-year-old female presents to the emergency department complaining of nausea, vomiting, diarrhea x3 days. She had been on antibiotics 2 weeks ago for a MRSA pneumonia. No antibiotics since that time. She states that she had a T-max of 101 at home. She states she has mild right flank pain. Nothing seems to make it better or worse. She does seem to have urinary frequency, states that she is concerned about a UTI. She states she has had diarrhea 2-3 times per day. Nonbloody. No abdominal cramping. She felt tired today so went to the walk-in clinic and was sent here for evaluation. Feels better after IV fluids with EMS. Review of Systems Constitutional: reports: Fever (T-max 101) Nose: denies: Rhinorrhea / runny nose, Congestion Cardiac: denies: Chest pain / pressure Respiratory: denies: Cough GI: reports: Nausea, Vomiting, Diarrhea. 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[employer] PARTS: Hysterectomy HEENT: Tonsil/Adenoidectomy Derm: Other - Present Medications Home Medications: Ambulatory Orders Medication Instructions Recorded Confirmed Alprazolam [Xanax] 0.25 mg PO QPM PRN 09/17/22 11/02/22 Carvedilol [Coreg] 12.5 mg PO BID 09/17/22 11/02/22 Furosemide [Lasix] 40 mg PO BID 09/17/22 11/02/22 Omeprazole 40 mg PO BID 09/17/22 11/02/22 Rivaroxaban [Xarelto] 15 mg PO QDDINNER 09/17/22 11/02/22 Tizanidine HCl 4 mg PO QPM 09/17/22 11/02/22 Tramadol HCl [Ultram] 1 - 2 tab PO Q6HR PRN 09/17/22 11/02/22 HYDROcod/ACETAM 5/325 [[place] 5/325] 1 - 2 tablet PO Q6H PRN 11/02/22 11/02/22 Ipratropium [place] 30 ml NS DAILY 11/02/22 11/02/22 Ondansetron Odt [Zofran] 4 mg TL Q6H PRN #10 tablet 11/02/22 cephALEXin [Keflex] 500 mg PO Q6H #20 cap 11/02/22 - Allergies Allergies/Adverse Reactions: Allergies Allergy/AdvReac Type Severity Reaction Status Date / Time BETY Inhibitors Allergy Respiratory Verified 11/02/22 16:26 latex Allergy Rash Verified 11/02/22 16:26 levofloxacin [From Levaquin] Allergy Rash Verified 11/02/22 16:26 Sulfa (Sulfonamide Allergy Hives Verified 11/02/22 16:26 Antibiotics) - Social History Does the pt smoke?: No Smoking Status: Former smoker Does the pt drink ETOH?: No Does the pt have substance abuse?: No - Immunizations Immunizations are current?: Yes - POLST Patient has POLST: No PD ED PE NORMAL - Vitals Vital signs reviewed: Yes - General General: Alert and oriented X 3, No acute distress - HEENT HEENT: PERRL, Moist mucous membranes - Neck Neck: Supple, no meningeal sign - Cardiac Cardiac: RRR, Strong equal pulses - Respiratory Respiratory: No respiratory distress, Clear bilaterally - Abdomen Abdomen: Soft, Non tender, Non distended - Back Back: No CVA TTP, No spinal TTP - Derm Derm: Warm and dry - Extremities Extremities: No edema, No calf tenderness / cord - Neuro Neuro: Alert and oriented X 3, 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 2-12 intact, No motor deficit, No sensory deficit, Normal speech - Psych Psych: Normal mood, Normal affect Results - Vitals Vitals: Vital Signs - 24 hr 11/02/22 11/02/22 16:22 19:30 Temperature 36.9 C 36.7 C Heart Rate 71 65 Respiratory 16 16 Rate Blood Pressure 184/83 H 170/116 H O2 Saturation 99 98 Oxygen O2 Source Room air - Labs Labs: Laboratory Tests 11/02/22 11/02/22 11/02/22 16:38 16:58 16:58 WBC 7.3 RBC 3.95 L Hgb 10.6 L Hct 35.4 L MCV 89.6 MCH 26.8 L MCHC 29.9 L RDW 14.8 Plt Count 266 MPV 10.9 H Neut # (Auto) 5.4 Lymph # (Auto) 1.1 L [place] # (Auto) 0.7 Eos # (Auto) 0.0 Baso # (Auto) 0.0 Absolute Nucleated RBC 0.00 Nucleated RBC % 0.0 Sodium 141 Potassium 3.4 L Chloride 105 Carbon Dioxide 22 Anion Gap 14.0 H BUN 19 Creatinine 1.8 H Estimated GFR (MDRD) 27 L Glucose 139 H Calcium 9.5 Total Bilirubin 0.5 AST 21 ALT 17 Alkaline Phosphatase 93 Total Protein 7.2 Albumin 3.4 Globulin 3.8 Albumin/Globulin Ratio 0.9 L Lipase 38 Urine Color YELLOW Urine Clarity SL. CLOUDY Urine pH 6.0 Ur Specific [place] <=1.005 Urine Protein NEGATIVE Urine Glucose (UA) NEGATIVE Urine Ketones NEGATIVE Urine Occult Blood TRACE-INTA Urine Nitrite NEGATIVE Urine Bilirubin NEGATIVE Urine Urobilinogen 0.2 (NORMAL) Ur Leukocyte Esterase MODERATE H Urine RBC 0-5 Urine WBC >25 H Ur Epithelial Cells RARE Transitional Ur Squamous Epith Cells FEW Squamous Urine Bacteria Moderate H Ur Microscopic Review INDICATED Urine Culture Comments INDICATED Nasal Adenovirus (PCR) Nasal B. parapertussis DNA (PCR) Nasal Coronavir 229E PCR Nasal Coronavir HKU1 PCR Nasal Coronavir NL63 PCR Nasal Coronavir OC43 PCR Nasal Enterovir/Rhinovir PCR Nasal Influenza B PCR Nasal Influenza A PCR Nasal Parainfluen 1 PCR Nasal Parainfluen 2 PCR Nasal Parainfluen 3 PCR Nasal Parainfluen 4 PCR Nasal RSV (PCR) Nasal B.pertussis DNA PCR Nasal C.pneumoniae (PCR) [place] Human Metapneumo PCR Nasal M.pneumoniae (PCR) Nasal SARS-CoV-2 (PCR) 11/02/22 16:59 WBC RBC Hgb Hct MCV MCH MCHC RDW Plt Count MPV Neut # (Auto) Lymph # (Auto) [place] # (Auto) Eos # (Auto) Baso # (Auto) Absolute Nucleated RBC Nucleated RBC % Sodium Potassium Chloride Carbon Dioxide Anion Gap BUN Creatinine Estimated GFR (MDRD) Glucose Calcium Total Bilirubin AST ALT Alkaline Phosphatase Total Protein Albumin Globulin Albumin/Globulin Ratio Lipase Urine Color Urine Clarity Urine pH Ur Specific [place] Urine Protein Urine Glucose (UA) Urine Ketones Urine Occult Blood Urine Nitrite Urine Bilirubin Urine Urobilinogen Ur Leukocyte Esterase Urine RBC Urine WBC Ur Epithelial Cells Ur Squamous Epith Cells Urine Bacteria Ur Microscopic Review Urine Culture Comments Nasal Adenovirus (PCR) NOT DETECTED Nasal B. parapertussis DNA (PCR) NOT DETECTED Nasal Coronavir 229E PCR NOT DETECTED Nasal Coronavir HKU1 PCR NOT DETECTED Nasal Coronavir NL63 PCR NOT DETECTED Nasal Coronavir OC43 PCR NOT DETECTED Nasal Enterovir/Rhinovir PCR NOT DETECTED Nasal Influenza B PCR NOT DETECTED Nasal Influenza A PCR NOT DETECTED Nasal Parainfluen 1 PCR NOT DETECTED Nasal Parainfluen 2 PCR NOT DETECTED Nasal Parainfluen 3 PCR NOT DETECTED Nasal Parainfluen 4 PCR NOT DETECTED Nasal RSV (PCR) NOT DETECTED Nasal B.pertussis DNA PCR NOT DETECTED Nasal C.pneumoniae (PCR) NOT DETECTED [place] Human Metapneumo PCR NOT DETECTED Nasal M.pneumoniae (PCR) NOT DETECTED Nasal SARS-CoV-2 (PCR) NOT DETECTED - Rads (name of study) CT abdomen pelvis Radiology: Final report received, See rad report PD Medical Decision Making - ED course Complexity details: reviewed results, re-evaluated patient, considered differential, d/w patient ED course: 82-year-old female UTI. Given Rocephin and will place on oral antibiotics. She was given IV Rocephin here. Patient is well-appearing, nontoxic. Afebrile. She has had nausea, vomiting, diarrhea as well, possible viral gastroenteritis? No evidence of C. difficile diarrhea. She was unable to produce a stool sample here. She is only having diarrhea 2-3 times per day. Ambulating without difficulty. Respiratory PCR is negative. CBC shows mild anemia. Chemistry shows mild hypokalemia, mild renal insufficiency. Urinalysis consistent with UTI. Patient counseled regarding signs and symptoms for which I believe and urgent re-evaluation would be necessary. Patient with good understanding of and agreement to plan and is comfortable going home at this time This document was made in part using voice recognition software. While efforts are made to proofread this document, sound alike and grammatical errors may occur. Departure - Departure Disposition: 01 Home, Self Care Clinical Impression: Vomiting Qualifiers: Vomiting type: unspecified Nausea presence: with nausea Qualified Code(s): R11.2 - Nausea with vomiting, unspecified Diarrhea Qualifiers: Diarrhea type: unspecified type Qualified Code(s): R19.7 - Diarrhea, unspecified UTI (urinary tract infection) Qualifiers: Urinary tract infection type: acute cystitis Hematuria presence: without hematuria Qualified Code(s): N30.00 - Acute cystitis without hematuria Condition: Good Instructions: ED Diet Vomiting Diarrhea, ED UTI Cystitis Female Follow-Up: your,doctor in 1 week [Other] Prescriptions: cephALEXin [Keflex] 500 mg PO Q6H #20 cap Ondansetron Odt [Zofran] 4 mg TL Q6H PRN #10 tablet PRN Reason: Nausea / Vomiting Comments: Your prescriptions were sent to [facility] in [place]. Please take all antibiotics until gone. You will start the oral antibiotics tomorrow. You were given your first dose of antibiotics here tonight. Please drink plenty of fluids. Return if you worsen. You can use the Zofran as needed for nausea and/or vomiting. Your CT scan does not show any acute abnormalities. Discharge Date/Time: 11/02/22 20:07
[2022-11-02 16:53] LABS: BILIRUBIN,URINE NEGATIVE (NEGATIVE); GLUCOSE, URINE (UA) NEGATIVE (NEGATIVE); KETONES,URINE (UA) NEGATIVE (NEGATIVE); LEUKOCYTE ESTERASE, URINE MODERATE (NEGATIVE); NITRITE,URINE NEGATIVE (NEGATIVE); OCCULT BLOOD,URINE TRACE-INTA (NEGATIVE); PROTEIN,URINE NEGATIVE (NEGATIVE); UROBILINOGEN,URINE 0.2 (NORMAL) E.U./dL (NORMAL)
[2022-11-02 16:55] LABS: CLARITY,URINE SL. CLOUDY (CLEAR)
[2022-11-02 17:02] LABS: BACTERIA,URINE Moderate /HPF (None Seen); EPITHELIAL CELLS,UR RARE Transitional /HPF (<= Few); RBC,URINE 0-5 /HPF (0-5); SQUAMOUS EPITHELIAL CELL,UR FEW Squamous (<= Few); WBC,URINE >25 /HPF (0-5)
[2022-11-02 17:04] LABS: BASOPHILS % (AUTO) 0.5 %; EOSINOPHILS % (AUTO) 0.3 %; HCT - HEMATOCRIT 35.4 % (37.0-47.0); HGB - HEMOGLOBIN 10.6 g/dL (12.0-16.0); LYMPHOCYTES # (AUTO) 1.1 10^3/uL (1.5-3.5); LYMPHOCYTES % (AUTO) 15.6 %; MEAN CORPUSCULAR HEMOGLOBIN 26.8 pg (27.0-31.0); MEAN CORPUSCULAR HGB CONC 29.9 g/dL (32.0-36.0); MEAN CORPUSCULAR VOLUME 89.6 fL (81.0-99.0); MEAN PLATELET VOLUME 10.9 fL (7.9-10.8); MONOCYTES # (AUTO) 0.7 10^3/uL (0.0-1.0); MONOCYTES % (AUTO) 9.4 %; NEUTROPHILS # (AUTO) 5.4 10^3/uL (1.5-6.6); NEUTROPHILS % (AUTO) 74.1 %; PLT - PLATELET COUNT 266 10^3/uL (130-450); RED BLOOD COUNT 3.95 10^6/uL (4.20-5.40); RED CELL DISTRIBUTION WIDTH 14.8 % (12.0-15.0); WHITE BLOOD COUNT 7.3 x10^3/uL (4.8-10.8)
[2022-11-02 17:14] LABS: ALBUMIN 3.4 g/dL (3.2-5.5); ALBUMIN/GLOBULIN RATIO 0.9 (1.0-2.2); BILIRUBIN,TOTAL 0.5 mg/dL (0.2-1.0); CALCIUM 9.5 mg/dL (8.5-10.3); CREATININE 1.8 mg/dL (0.4-1.0); POTASSIUM 3.4 mmol/L (3.5-5.0); TOTAL PROTEIN 7.2 g/dL (6.7-8.2)
[2022-11-02 18:16] LABS: B. PARAPERTUSSIS- RESP PCR PAN NOT DETECTED; B. PERTUSSIS- RESP PCR PANEL NOT DETECTED; C. PNEUMONIAE- RESP PCR PANEL NOT DETECTED; CORONAVIRUS 229E-RESP PCR NOT DETECTED; CORONAVIRUS HKU1-RESP PCR NOT DETECTED; CORONAVIRUS NL63-RESP PCR NOT DETECTED; CORONAVIRUS OC43-RESP PCR NOT DETECTED; HUMAN METAPNEUMOVIRUS NOT DETECTED; INFLUENZA A- RESP PCR PANEL NOT DETECTED; INFLUENZA B - RESP PCR PANEL NOT DETECTED; M. PNEUMONIAE- RESP PCR PANEL NOT DETECTED; PARAINFLUENZA VIRUS 1 NOT DETECTED; PARAINFLUENZA VIRUS 2 NOT DETECTED; PARAINFLUENZA VIRUS 3 NOT DETECTED; PARAINFLUENZA VIRUS 4 NOT DETECTED; RHINOVIRUS/ENTEROVIRUS NOT DETECTED; RSV- RESP PCR PANEL NOT DETECTED; SARS-CoV-2 -RESP PCR PANEL NOT DETECTED
--- NOTE | 2022-11-02 18:40 | CT Report ---
PROCEDURE: ABDOMEN/PELVIS WO INDICATIONS: adb pain, diarrhea TECHNIQUE: Noncontrast 5 mm thick sections acquired from the diaphragms to the symphysis. 5 mm coronal and sagi ttal reformats were then performed. For radiation dose reduction, the following was used: automated exposure control, adjustment of mA and/or kV according to patient size. COMPARISON: CT abdomen pelvis 12/18/2021. FINDINGS: Image quality: Excellent. ABDOMEN: Lung bases: Lung bases are clear. Mild scarring or fibrosis at the lung bases. No pleural effusion. Heart size is normal. Three-vessel coronary artery calcifications. Small hiatal hernia. Solid organs: Liver and spleen are normal in size. Gallbladder is unremarkable. Pancreas is normal in contours. No adrenal nodules. Kidneys are normal in size, without convincing hydronephrosis or nephrolithiasis. Peritoneum and bowel: Unenhanced bowel loops demonstrate normal wall thickness and caliber. No free fluid or air. Nodes and vessels: No retroperitoneal or mesenteric adenopathy by size criteria. Aorta and inferior vena cava are normal in caliber. Extensive calcified atherosclerotic plaque. Miscellaneous: No ventral hernias. PELVIS: Genitourinary: Bladder wall thickness is normal. No stone. Uterus is absent. Miscellaneous: No inguinal hernias or adenopathy. Bones: No suspicious bony lesions. Scoliosis. DDD. No vertebral body compression fractures. IMPRESSION: No small bowel obstruction. No free fluid. No kidney stones. Reviewed by: Bubba Govea MD on 11/02/2022 6:39 PM PST Approved by: Bubba Govea MD on 11/02/2022 6:39 PM PST Station ID: [id number]
[2022-11-02 19:31] VITALS: BP 170/116
[2022-11-02] MEDS ORDERED: cefTRIAXone 1 GM VIAL IVP STA (19:34)
== END 2022-11-02 20:07 | disposition home or self-care (01) ==
LOC: EDUNIT# → ED 16:13
DX: R11.2 Nausea with vomiting, unspecified (principal); R19.7 Diarrhea, unspecified; N30.00 Acute cystitis without hematuria; Z87.891 Personal history of nicotine dependence; Z20.822 Contact with and (suspected) exposure to COVID-19
CPT/HCPCS: 36415; 80053; 81001; 81003; 83690; 85025; 87086; 87181; 87633; 96361; 96374; 99283

== ENCOUNTER 2023-05-06 19:08 | Outpatient (CLI) | payer MEDICARE, OTHER ==
--- NOTE | 2023-05-06 20:23 | XRAY Report ---
PROCEDURE: Foot 3 View RT INDICATIONS: CONTUSION OF RIGHT FOOT,INITIAL ENCOUNTER TECHNIQUE: 3 views of the foot were acquired. COMPARISON: None. FINDINGS: Bones: Moderate to severe osteoarthritic changes are noted in right foot. There is diffuse osteopeni a. Likely old fractures are seen in second and third metatarsal shafts. Old injury involving first pr oximal phalangeal neck is also noted. No definite acute fracture or dislocation. No suspicious bony l esions. Soft tissues: Marked soft tissue swelling over dorsal aspect of midfoot and forefoot is seen. No chauncey picious soft tissue calcifications or masses. IMPRESSION: Marked dorsal right foot soft tissue swelling. Moderate to severe osteoarthritic changes throughout r ight foot. Old fractures as above. No definite acute fracture or dislocation. Reviewed by: Josue Hayward MD on 05/06/2023 8:22 PM PDT Approved by: Josue Hayward MD on 05/06/2023 8:22 PM PDT Station ID: [id number]
== END 2023-05-06 19:09 | disposition home or self-care (01) ==
LOC: DI 19:08
PROVIDERS: ATTEND Family Medicine
DX: S90.31XA Contusion of right foot, initial encounter (principal); M19.071 Primary osteoarthritis, right ankle and foot; M79.676 Pain in unspecified toe(s)
CPT/HCPCS: 36415; 80048; 84550